=== PATIENT | male | born 1960 | race African-American/Black ===

== ENCOUNTER 2016-08-21 08:41 | Emergency (ER) | payer OTHER ==
[~2016-08-21] VITALS: Ht 188 cm; Wt 125.2 kg
[~2016-08-21 08:41] MED LIST: CITA-36 PO; GLIP-115 PO; HYDR25TA4 PO; HYDR8TAB PO; LISI40TA PO; METO-159 PO; NIFE90TA30 PO; OXY20CRT PO
[2016-08-21 09:40] LABS: Basophils # (auto) 0 uL; Basophils % (auto) 0.3 % (0.0-2.0); Eosinophils # (auto) 0.1 uL; Eosinophils % (auto) 1.2 % (0.0-7.0); Hemoglobin 15.4 g/dL (13.5-17.5); Lymphocytes # (auto) 1.9 uL; Lymphocytes % (auto) 19.2 % (10.0-50.0); Mean Corpuscular Hemoglobin 28.3 pg (28.0-32.0); Mean Corpuscular Hgb Conc. 32.1 g/dL (32.0-36.0); Mean Corpuscular Volume 88.2 fL (80.0-100.0); Mean Platelet Volume 8.2 fL (7.4-10.4); Monocytes # (auto) 0.7 uL; Monocytes % (auto) 6.8 % (0.0-12.0); Neutrophils % (auto) 72.5 % (37.0-80.0); Platelet Count (auto) 360 10^3/uL (140-450); Red Cell Distribution Width 13.3 % (11.6-16.0); White Blood Cell 9.7 10^3/uL (4.4-10.8)
[2016-08-21 10:00] LABS: Urine Bilirubin Negative (Negative); Urine Blood Negative /uL (Negative); Urine Color Colorless (Yellow); Urine Ketone Negative (Negative); Urine Nitrite Negative (Negative); Urine RBC <1 /hpf (0 - 3); Urine Urobilinogen Normal (Negative)
[2016-08-21 10:02] LABS: Albumin 4.1 g/dL (3.4-5.0); BUN/Creatinine Ratio 13.2; Bilirubin, Total 0.6 mg/dL (0.2-1.0); Calcium 9.9 mg/dL (8.5-10.1); Potassium 4.1 mmol/L (3.5-5.1); Total Protein 8.9 g/dL (6.4-8.2)
[2016-08-21 10:09] LABS: Urine Glucose 4+ mg/dL (Normal)
[2016-08-21] MEDS ORDERED: SODIUM CHLORIDE 0.9% 1,000 ML IVB ONE (15:05)
[2016-08-21 15:40] LABS: INR 1.1 (0.9-1.15); Partial Thromboplastin Time 26.1 sec (22.64-33.71); Prothrombin Time 11.3 sec (9.37-12.3)
[2016-08-21 15:44] LABS: Magnesium 2.4 mg/dL (1.6-2.6)
[2016-08-21] MEDS ORDERED: InsuLIN REG 1unit/0.01ml Soln (100units/ml) IV ONE (15:45)
[2016-08-21 16:22] LABS: Urine Bilirubin Negative (Negative); Urine Blood Negative /uL (Negative); Urine Color Yellow (Yellow); Urine Ketone Negative (Negative); Urine Nitrite Negative (Negative); Urine RBC <1 /hpf (0 - 3); Urine Urobilinogen Normal (Negative)
[2016-08-21 16:23] LABS: Urine Glucose 4+ mg/dL (Normal)
[2016-08-21 17:01] VITALS: BP 137/94
== END 2016-08-21 18:23 | disposition left against medical advice (07) ==
LOC: ER 08:50
DX: E11.65 Type 2 diabetes mellitus with hyperglycemia (principal); R79.89 Other specified abnormal findings of blood chemistry; Z79.4 Long term (current) use of insulin; M54.9 Dorsalgia, unspecified; G89.29 Other chronic pain; I10 Essential (primary) hypertension; Z79.899 Other long term (current) drug therapy
CPT/HCPCS: 36415; 71010; 80053; 81001; 82150; 82962; 83690; 83735; 85025; 85610; 85730; 93005; 94761; 96361; 96374; 99285; J1815; J7030

== ENCOUNTER 2017-08-24 14:24 | Emergency (ER) | payer OTHER ==
[~2017-08-24] VITALS: Ht 195.6 cm; Wt 204.1 kg
[~2017-08-24 14:24] MED LIST changes: -HYDR8TAB PO; +HYDR8TAB46 PO
[2017-08-24] MEDS ORDERED: DIAZEPAM 5 MG/ML 2ML SYRG IM ONE (16:00)
[2017-08-24] MEDS ORDERED: HALOPERIDOL LACTATE 5 MG/ML INJ VIAL IM ONE (16:00)
[2017-08-24] MEDS ORDERED: diphenhdrAMINE HCL 50 MG/1 ML VL IM ONE (16:00)
[2017-08-24 16:32] VITALS: BP 90/52
[2017-08-24] MEDS ORDERED: HYDROmorphone HCL 2 MG/ML VL IV ONE (16:45)
[2017-08-24 17:40] LABS: Basophils # (auto) 0 uL; Basophils % (auto) 0.9 % (0.0-2.0); Eosinophils # (auto) 0.1 uL; Eosinophils % (auto) 2.2 % (0.0-7.0); Hematocrit 41.2 % (41.0-53.0); Hemoglobin 13.4 g/dL (13.5-17.5); Lymphocytes # (auto) 1.5 uL; Lymphocytes % (auto) 26.8 % (10.0-50.0); Mean Corpuscular Hemoglobin 27.2 pg (28.0-32.0); Mean Corpuscular Hgb Conc. 32.6 g/dL (32.0-36.0); Mean Corpuscular Volume 83.5 fL (80.0-100.0); Monocytes # (auto) 0.6 uL; Monocytes % (auto) 11.6 % (0.0-12.0); Neutrophils # (auto) 3.2 uL; Neutrophils % (auto) 58.5 % (37.0-80.0); Nucleated Red Blood Cells % 0.1 %; Platelet Count (auto) 294 10^3/uL (140-450); Red Blood Cells 4.93 10^6/uL (4.5-5.90); Red Cell Distribution Width 16.9 % (11.8-14.3); White Blood Cell 5.5 10^3/uL (4.4-10.8)
[2017-08-24 17:48] LABS: Albumin 3.1 g/dL (3.4-5.0); BUN/Creatinine Ratio 13.3; Calcium 8.3 mg/dL (8.5-10.1); Potassium 3.3 mmol/L (3.5-5.1); Salicylate < 1.7 mg/dL (2.8-20.0)
[2017-08-24 17:49] LABS: Acetaminophen < 2.0 ug/mL (10-30)
[2017-08-24 18:06] LABS: Bilirubin, Total 0.5 mg/dL (0.2-1.0); Total Protein 7.7 g/dL (6.4-8.2)
== END 2017-08-24 18:20 | disposition left against medical advice (07) ==
LOC: EDBD 14:24 → ER 14:24
DX: F43.10 Post-traumatic stress disorder, unspecified (principal); G89.29 Other chronic pain; M48.00 Spinal stenosis, site unspecified; M54.9 Dorsalgia, unspecified; I10 Essential (primary) hypertension; E11.9 Type 2 diabetes mellitus without complications
CPT/HCPCS: 36415; 80053; 80320; 80329; 85025; 96372; 96374; 99284; J1170; J1200; J1630

== ENCOUNTER 2019-02-04 16:19 | Inpatient (IN) | payer MEDICARE, OTHER ==
[~2019-02-04] VITALS: Ht 188 cm; Wt 130.4 kg
[2019-02-04] MEDS ORDERED: SODIUM CHLORIDE 0.9% 500 ML IV ONE (16:51)
[2019-02-04] MEDS ORDERED: ACETAMINOPHEN 500 MG TAB PO ONE (17:00)
[2019-02-04] MEDS ORDERED: NALOXONE HCL 1MG/ML 2ML SYRINGE IV ONE (17:00)
[2019-02-04 17:09] LABS: Eosinophils # (auto) 0 uL; Eosinophils % (auto) 0.2 % (0.0-7.0); Hemoglobin 9.9 g/dL (13.5-17.5); Monocytes # (auto) 0.9 uL; White Blood Cell 12.2 10^3/uL (4.4-10.8)
[2019-02-04 17:10] LABS: Basophils # (auto) 0.1 uL; Basophils % (auto) 0.5 % (0.0-2.0); Hematocrit 34.5 % (41.0-53.0); Lymphocytes # (auto) 1.9 uL; Lymphocytes % (auto) 15.6 % (10.0-50.0); Mean Corpuscular Hemoglobin 22.2 pg (28.0-32.0); Mean Corpuscular Hgb Conc. 28.6 g/dL (32.0-36.0); Mean Corpuscular Volume 77.6 fL (80.0-100.0); Neutrophils # (auto) 9.4 uL; Neutrophils % (auto) 76.7 % (37.0-80.0); Nucleated Red Blood Cells % 0.2 %; Platelet Count (auto) 318 10^3/uL (140-450); Red Blood Cells 4.44 10^6/uL (4.5-5.90); Red Cell Distribution Width 19.2 % (11.8-14.3)
[2019-02-04 17:25] LABS: Albumin 3.2 g/dL (3.4-5.0); Calcium 8.1 mg/dL (8.5-10.1); Magnesium 2.5 mg/dL (1.6-2.6); Potassium 4.9 mmol/L (3.5-5.1)
[2019-02-04 17:30] LABS: Bilirubin, Total 0.6 mg/dL (0.2-1.0); Total Protein 7.8 g/dL (6.4-8.2)
[2019-02-04] MEDS ORDERED: ETOMIDATE (2MG/ML) 20ML VIAL IV ONE ×2 (17:53→18:30)
[2019-02-04] MEDS ORDERED: SUCCINYLCHOLINE CHLORIDE 20 MG/ML 10ML VIAL IV ONE ×2 (17:54→18:30)
[2019-02-04 17:56] LABS: Acetaminophen 5.3 ug/mL (10-30); Salicylate < 1.7 mg/dL (2.8-20.0)
[2019-02-04] MEDS ORDERED: MIDAZOLAM DRIP 50 mg/50mL 50 ML IV ONE (17:56)
[2019-02-04] MEDS ORDERED: NOREPINEPHRINE 8 MG/250ML KIT 250 ML IV ONE (18:05)
[2019-02-04] MEDS: InsuLIN R (HUMAN) 100 UNITS in SODIUM CHL 0.9% 99 ML IV SCH (18:35)
[2019-02-04 18:38] LABS: INR 1.04 (0.9-1.15); Partial Thromboplastin Time 25.2 sec (23.64-32.05)
[2019-02-04] MEDS: MIDAZOLAM DRIP 50 mg/50mL 50 ML IV SCH (18:42)
[2019-02-04] MEDS: NOREPINEPHRINE 8 MG/250ML KIT 250 ML IV SCH (18:43)
[2019-02-04] MEDS ORDERED: InsuLIN REG 1unit/0.01ml Soln (100units/ml) IV ONE (18:45)
[2019-02-04] MEDS ORDERED: cefTRIAXone 1GM/50ML D5W 50 ML IV ONE (18:45)
[2019-02-04] MEDS ORDERED: DEXTROSE (50%) 50ML SYRG IV PRN ×2 (18:45→20:00)
[2019-02-04] MEDS ORDERED: DOPamine 1600MCG/ML D5W 250 ML IV ONE (19:12)
[2019-02-04] MEDS: DOPamine 1600MCG/ML D5W 250 ML IV SCH (19:23)
[2019-02-04] MEDS ORDERED: SODIUM BICARBONATE 8.4 % INJ 50ML VIAL IV ONE (19:30)
[2019-02-04 20:00] VITALS: BP 109/74
[2019-02-04] MEDS ORDERED: NITROGLYCERIN 0.4 MG SL TAB SL PRN (20:00)
[2019-02-04] MEDS ORDERED: MORPHINE SULF INJ 2 MG/ML SYRINGE 1ML IV PRN (20:00)
[2019-02-04] MEDS ORDERED: SOD CHL 0.45% 1,000 ML IV ONE (20:00)
[2019-02-04] MEDS ORDERED: InsuLIN REG 1unit/0.01ml Soln (100units/ml) SC SCH (20:00)
[2019-02-04] MEDS: ACCU-CHEK COMFORT CURVE STRIP VI SCH ×3 (20:00→21:39)
[2019-02-04] MEDS ORDERED: AZITHROMYCIN 500MG/ 250ML 250 ML IV ONE (21:00)
[2019-02-04 22:00] VITALS: BP 78/58
[2019-02-04] MEDS: ENOXAPARIN SOD 40 MG/0.4 ML SYRINGE SC SCH (22:24)
[2019-02-05] VITALS (96 sets, daily range): BP systolic 87–151; BP diastolic 32–95
--- NOTE | 2019-02-05 00:15 | NUR ---
ADMITTED FROM HOME. DIAGNOSIS: RENAL INSUFFICIENCY, CHF, DKA, CERVICAL PAIN. HAS A CAST ON HIS RIGHT ARM AND RIGHT LEG. HE FELL 4 DAYS AGO AT HOME. HYPOTENSIVE: ON LEVOPHED MAX AND DOPAMINE 10 MCG/KG/MIN. BACK PAIN THAT HE HAS AT HOME, HE TAKES NORCO. PUPILS PINPOINT AND FIXED. ORAL CARE . ORALLY INTUBATED. ORAL NGT TO LIS. SMALL AMOUNT OF DARK BROWN/CLEAR IN NGT. NOTHING IN CANNISTER. NSR WITHOUT ECTOPY. VELEZ IN PLACE. 110CC OF DARK LEODAN IN BAG. 1/2NS STARTED. PENDING BLOOD CULTURE RESULT. ECHO ORDER IS ACTIVE. RECEIVED ZITHROMAX IN ER X 1. 3 PERIPHERAL IVS. ALL SHOW NO REDNESS OR SWELLING. BLOOD SUGAR IN RIGHT ARM IS 457, LEFT ARM IS 523. CALL IN TO HOSPITALIST.
--- NOTE | 2019-02-05 01:00 | NUR ---
HISTORY OBTAINED FROM . PASSWORD SET UP. THEN SHE WENT HOME. NO VENTILATOR CHANGES.
[2019-02-05] MEDS: InsuLIN REG 1unit/0.01ml Soln (100units/ml) SC SCH ×6 (01:59→19:59)
[2019-02-05] MEDS ORDERED: INSULIN LANTUS (GLARGINE) 1 /0.01ml (100units/ml) SC ONE (02:00)
--- NOTE | 2019-02-05 02:00 | NUR ---
REPOSITIONED. ORAL CARE. FEVER 99.8. ICE BAG TO BACK OF NECK.
--- NOTE | 2019-02-05 03:00 | NUR ---
AM LABS DONE.
[2019-02-05] MEDS: NOREPINEPHRINE 8 MG/250ML KIT 250 ML IV SCH (04:00)
--- NOTE | 2019-02-05 04:00 | NUR ---
PUPILS FIXED AND PINPOINT. ORAL CARE DONE. SUCTIONED ETT FOR A SMALL AMOUNT OF CLEAR SECRETIONS. ABDOMEN ROUND AND SOFT. VELEZ IN PLACED WITH DARK YELLOW LIQUID TO DOWN DRAIN BAG. NSR WITH A BORDERLINE FIRST DEGREE AV BLOCK.
[2019-02-05] MEDS: ACCU-CHEK COMFORT CURVE STRIP VI SCH ×12 (04:10→23:53)
[2019-02-05 04:12] LABS: Basophils # (auto) 0.1 uL; Eosinophils # (auto) 0 uL; Mean Corpuscular Volume 74.4 fL (80.0-100.0); Nucleated Red Blood Cells % 0.1 %
[2019-02-05 04:13] LABS: Basophils % (auto) 0.7 % (0.0-2.0); Hematocrit 33.2 % (41.0-53.0); Hemoglobin 9.8 g/dL (13.5-17.5); Lymphocytes # (auto) 1.6 uL; Lymphocytes % (auto) 11.5 % (10.0-50.0); Mean Corpuscular Hgb Conc. 29.6 g/dL (32.0-36.0); Monocytes # (auto) 1.7 uL; Monocytes % (auto) 11.7 % (0.0-12.0); Neutrophils # (auto) 10.8 uL; Neutrophils % (auto) 76.1 % (37.0-80.0); Platelet Count (auto) 336 10^3/uL (140-450); Red Blood Cells 4.47 10^6/uL (4.5-5.90); Red Cell Distribution Width 19.3 % (11.8-14.3); White Blood Cell 14.2 10^3/uL (4.4-10.8)
[2019-02-05 04:28] LABS: Albumin 3.2 g/dL (3.4-5.0); Calcium 7.8 mg/dL (8.5-10.1)
[2019-02-05 04:37] LABS: BUN/Creatinine Ratio 13.5; Bilirubin, Total 0.5 mg/dL (0.2-1.0); Total Protein 7.6 g/dL (6.4-8.2)
[2019-02-05] MEDS: MIDAZOLAM DRIP 50 mg/50mL 50 ML IV SCH ×5 (05:00→23:32)
[2019-02-05] MEDS: DOPamine 1600MCG/ML D5W 250 ML IV SCH ×2 (05:11→16:23)
--- NOTE | 2019-02-05 06:00 | NUR ---
REPOSITIONED TO THE LEFT SIDE. ORAL CARE. LUNGS CLEAR. ABDOMEN ROUND AND SOFT. VELEZ DRAINING MORE URINE SINCE THE IV GOT STARTED.NGT TO LIS IS DRAINING A BROWN/YELLOW LIQUID.
--- NOTE | 2019-02-05 07:00 | NUR ---
REPORT RECEIVED FROM OFFICE ASSISTANT RECEPTIONIST NURSE. PATIENT RESTING IN BED AT THIS TIME RESPIRATIONS EVEN AND UNLABORED, INTUBATED AND SEDATED. NO SIGNS OF ACUTE DISTRESS NOTED. BED IN LOW POSITION. WILL CONTINUE TO MONITOR.
--- NOTE | 2019-02-05 09:00 | NUR ---
UPDATED VIA TELEPHONE ON PATIENT CONDITION. ALL QUESTIONS AND CONCERNS ADDRESSED.
--- NOTE | 2019-02-05 09:19 | NUR ---
PATIENT MAX ON VERSED DRIP AND CONTINUES TO BE AGITATED. PAGED VEHICLE WASHER MD MCLAUGHLIN AWAITING CALL BACK.
--- NOTE | 2019-02-05 09:30 | NUR ---
SPOKE TO DR MCLAUGHLIN ABOUT STATUS AND AGITATION ON VERSED DRIP. PER MD MAY START FENTANYL DRIP PER PROTOCOL.
[2019-02-05] MEDS: ENOXAPARIN SOD 40 MG/0.4 ML SYRINGE SC SCH (09:56)
[2019-02-05] MEDS: fentaNYL Drip 2500mCg/250mlNS 250 ML IV SCH (09:57)
--- NOTE | 2019-02-05 10:39 | NUR ---
DR CATALAN AT BEDSIDE TO ASSESS PATIENT AND DISCUSS PLAN OF CARE. PER MD INCREASED LOVENOX TO 1MG/KG Q12HR. ALSO STATED PATIENT WILL HAVE HEART CATH ONCE STABILIZED.
--- NOTE | 2019-02-05 11:13 | NUR ---
Decreased Fio2 to 55%. PT having 2D echo performed at this time. Did not SX PT due to testing. Reported to VERONIQUE Vallejo of Fio2 changes. No SOB/resp. distress noted.
[2019-02-05] MEDS ORDERED: OPTISON 3ml Vial for INJ IV ONE (11:17)
--- NOTE | 2019-02-05 11:21 | NUR ---
IMAGE ENHANCED ECHO PERFORMED. OPTISON GIVEN 4ML. LOT #[id number] EXPIRATION JANUARY 25, 2020
--- NOTE | 2019-02-05 12:33 | NUR ---
Decreased Fio2 to 45%. Reported to VERONIQUE Vallejo of Fio2 changes.No SOB/resp.distress noted at this time.SX ETT with a return of small thin white secretions. Sx oral cavity with large amount of thick clear secretions.
--- NOTE | 2019-02-05 12:45 | NUR ---
IV REMOVED FROM RIGHT IJ UPON TURNING PATIENT. APPLIED PRESSURE TO SITE WITH STERILE GAUZE AND PLACED TEGADERM.
[2019-02-05 14:56] LABS: Alcohol, Urine < 3.0 mg/dL (0-5); Amphetamine Screen, Urine NEGATIVE (NEGATIVE); Barbiturate Scree,Urine NEGATIVE (NEGATIVE); Benzodiazephine Screen, Urine POSITIVE (NEGATIVE); Cannabinoid Screen, Urine NEGATIVE (NEGATIVE); Cocaine Screen, Urine NEGATIVE (NEGATIVE); Opiate Scree,Urine POSITIVE (NEGATIVE); Phencyclidine Screen, Urine NEGATIVE (NEGATIVE)
--- NOTE | 2019-02-05 15:20 | NUR ---
Faxed medical record request over to [facility].
--- NOTE | 2019-02-05 15:33 | NUR ---
Decreased Fi02 to 40% VERONIQUE Vallejo aware of change .B/S clear.SX ETT with thick sampson secretions , SX orally with thick white secretions . No SOB/resp.distress noted at this time.
[2019-02-05] MEDS ORDERED: VANCOMYCIN PER PHARMACY 0 MG IV SCH (16:15)
[2019-02-05] MEDS: SODIUM CHLORIDE 0.9% 1,000 ML IV SCH (16:44)
[2019-02-05 16:49] LABS: Urine Bacteria FEW /hpf (None Seen); Urine Blood 2+ /uL (Negative); Urine Specific Gravity 1.014 (1.001-1.035); Urine WBC 7 /hpf (0 - 3)
[2019-02-05] MEDS: VANCOMYCIN 1GM/250ML 250 ML IV SCH ×2 (16:51→18:11)
--- NOTE | 2019-02-05 19:50 | NUR ---
FIO2 35%. O2 SATURATION 99%
--- NOTE | 2019-02-05 20:00 | NUR ---
ADMITTED TO 106 ON 02/05/19 AT 0015. INTUBATED. NSR WITHOUT ECTOPY. PATIENT IS NOW SINUS TACHYCARDIA 101. NO ECTOPY. DR BACA HERE NOW. PATIENT WAKENS EASILY OPENING EYES AND MOVING HIS LEFT ARM. PUPILS FIXED AT 2. ORAL CAVITY CLEAN. ORAL ETT. ORAL NGT. LUNGS CLEAR. DID NOT SUCTION ANYTHING FROM HIS ETT. ON 35% CURRENTLY. AC 16, BREATHING ALONG WITH VENTILATOR. ABDOMEN ROUND AND SOFT. NO BM. VELEZ IN PLACE DRAINING YELLOW LIQUID WITH A LOT OF SEDIMENT. HAS 2 PERIPHERAL IVS, ONE 20G IN LAC AND ONE 20G IN LEFT WRIST. FENTANYL AND VERSED ARE TOGETHER IN ONE AND THE MAINTENANCE FLUID IS IN THE OTHER. MAXIPIME IS NEW. SEPERATE LINE, RATE IS 12. 5 CC/HR. NOTED ECHO RESULTS. HAD A VANCOMYCIN 2 GM LOAD TODAY. PLAN: DR CATALAN WANTS TO DO A HEART CATH AFTER EXTUBATION. ALLERGY BAND APPLIED FOR ALLERGY TO METHADONE. ACCUCHECK Q 4 HOURS. 180 BLOOD SUGAR REQUIRING 4 UNITS OF REGULAR INSULIN. NO SKIN ISSUES. REPOSITIONED TO HIS RIGHT SIDE. USING THE WEDGE TO KEEP HIM OVER. HAS A RIGHT ARM CAST AND RIGHT LOWER LEG/FOOT CAST.
[2019-02-05] MEDS: CEFEPIME HYDROCHLORIDE 2 GM in SODIUM CHL 0.9% 50 ML IV SCH (20:02)
--- NOTE | 2019-02-05 21:21 | NUR ---
FIO2 DECREASED TO 30%. O2 SATURATION 98%
--- NOTE | 2019-02-05 22:00 | NUR ---
HAS BEEN ABLE TO STAY OFF OF LEVOPHED AND DOPAMINE. WAKES UP READILY. PUPILS MOVING SLUGGISHLY. OPENS EYES OCCASIONALLY. RHYTMICALLY MOVES LEFT ARM AND THEN RELAXES. RIGHT SIDE WITH THE CASTS DOES NOT MOVE. OVERBREATHES THE VENTILATOR RATE TO 18. NO BM. VELEZ OUTPUT ADEQUATE. NGT OUTPUT SLOWING. THE COLOR OF THE NGT OUTPUT IS BROWN. SINUS TACHYCARDIA 101 CONSISTENTLY. REPOSITIONED TO BACK. LEFT LOWER LEG ON PILLOW, HEELS OFF BED.IVS SHOW NO REDNESS. THE ARMS HAS BEEN SWOLLEN.
[2019-02-05] MEDS: ENOXAPARIN SOD 150 MG/1 ML SYRINGE SC SCH (22:06)
[2019-02-05] MEDS: FAMOTIDINE (10MG/ML) 2ML VL IV SCH (22:06)
[2019-02-06] VITALS (115 sets, daily range): BP systolic 122–196; BP diastolic 56–116
--- NOTE | 2019-02-06 | NUR ---
NO CHANGE IN STATUS. PUPILS 2 AND FIXED. SMALL AMOUNT OF ORAL SECRETIONS. NOTHING SUCTIONED FROM ETT. NGT SUCTIONING DARK GREEN LIQUID. SO FAR 250CC. NO BOWEL SOUNDS. NO BM. VELEZ: SEDIMENT IN YELLOW LIQUID. IV SITES SHOW NO REDNESS OR SWELLING. NSR 99 WITHOUT ECTOPY. TEMP 99.4. ICE BAG TO BACK OF THROAT.
[2019-02-06] MEDS: InsuLIN REG 1unit/0.01ml Soln (100units/ml) SC SCH ×7 (00:10→23:48)
[2019-02-06] MEDS: ACCU-CHEK COMFORT CURVE STRIP VI SCH ×13 (00:10→23:49)
--- NOTE | 2019-02-06 01:13 | NUR ---
REPOSITIONED TO LEFT. EYES OPEN. MOVED LEFT ARM. THEN WENT BACK TO SLEEP.
--- NOTE | 2019-02-06 02:46 | NUR ---
BACKING UP ON THE VERSED BY 1 MG, HE WOKE UP AND WAS COUGHING STRONGLY. SMALL AMOUNT SUCTIONED FROM ETT. COPIOUS OF AMOUNT OF GREEN SECRETIONS CAME FROM HIS MOUTH.
[2019-02-06] MEDS: MIDAZOLAM DRIP 50 mg/50mL 50 ML IV SCH ×3 (03:17→10:53)
--- NOTE | 2019-02-06 04:00 | NUR ---
CHG BATH GIVEN. AM LABS DRAWN. SINUS TACHYCARDIA WITH NO ECTOPY.
[2019-02-06 04:12] LABS: Basophils # (auto) 0.1 uL; Basophils % (auto) 1.5 % (0.0-2.0); Eosinophils # (auto) 0.1 uL; Eosinophils % (auto) 0.6 % (0.0-7.0); Hematocrit 31.3 % (41.0-53.0); Hemoglobin 9.7 g/dL (13.5-17.5); Lymphocytes # (auto) 1.4 uL; Lymphocytes % (auto) 16.7 % (10.0-50.0); Mean Corpuscular Hemoglobin 22.2 pg (28.0-32.0); Mean Corpuscular Volume 71.6 fL (80.0-100.0); Monocytes # (auto) 0.9 uL; Monocytes % (auto) 10.9 % (0.0-12.0); Neutrophils # (auto) 5.9 uL; Neutrophils % (auto) 70.3 % (37.0-80.0); Nucleated Red Blood Cells % 0.1 %; Platelet Count (auto) 222 10^3/uL (140-450); Red Blood Cells 4.36 10^6/uL (4.5-5.90); Red Cell Distribution Width 18.9 % (11.8-14.3); White Blood Cell 8.3 10^3/uL (4.4-10.8)
[2019-02-06] MEDS: CEFEPIME HYDROCHLORIDE 2 GM in SODIUM CHL 0.9% 50 ML IV SCH ×3 (04:16→20:42)
[2019-02-06 04:20] LABS: Albumin 2.8 g/dL (3.4-5.0); BUN/Creatinine Ratio 19.8; Bilirubin, Total 0.6 mg/dL (0.2-1.0); Calcium 8.2 mg/dL (8.5-10.1); Total Protein 6.9 g/dL (6.4-8.2)
[2019-02-06] MEDS: SODIUM CHLORIDE 0.9% 1,000 ML IV SCH ×2 (05:35→20:37)
[2019-02-06] MEDS: VANCOMYCIN 1,250 MG in D5W 5% 250 ML IV SCH ×2 (06:16→18:15)
[2019-02-06] MEDS: DOPamine 1600MCG/ML D5W 250 ML IV SCH ×2 (07:32→23:44)
[2019-02-06] MEDS: InsuLIN R (HUMAN) 100 UNITS in SODIUM CHL 0.9% 99 ML IV SCH (07:32)
--- NOTE | 2019-02-06 08:20 | NUR ---
NEURO/SEDATION Patient appears to be very awake at this time. Patient moving right arm, attempting to reach for ETT. Patient coughing and biting on tube. Patient instructed to relax, patient restless. Sedation increased.
--- NOTE | 2019-02-06 08:30 | NUR ---
FAMILY Patient at bedside. She has been updated on plan of care. All questions and concerns addressed.
--- NOTE | 2019-02-06 08:40 | NUR ---
NEPHROLOGY ROUNDS at bedside assessing patient. New orders received.
--- NOTE | 2019-02-06 09:29 | NUR ---
Respiratory note: VENT CHARTING AT 0605 AND 0800 BREATHS ARE ASSISTED NOT SPONTANEOUS CHARTED.
--- NOTE | 2019-02-06 10:00 | NUR ---
LOVENOX Lovenox temporarily held due to patient going to have PICC line placed today. Will administer dose after PICC line placement.
--- NOTE | 2019-02-06 10:30 | NUR ---
MD ROUNDS at bedside assessing patient. He is aware patient awakens easily and was moving left arm to attempt to pull at ETT, sedation was then increased. He would still like to wean down sedation if possible. PICC line order received.
[2019-02-06] MEDS ORDERED: LORazepam 2MG/ML-1ML VIAL IV PRN (10:45)
[2019-02-06] MEDS: FAMOTIDINE (10MG/ML) 2ML VL IV SCH ×2 (10:52→22:22)
[2019-02-06] MEDS: fentaNYL Drip 2500mCg/250mlNS 250 ML IV SCH ×3 (10:52→22:37)
--- NOTE | 2019-02-06 10:52 | NUR ---
Respiratory note: VENT CHANGE ORDER PER DR MCLAUGHLIN TO DECREASE PEEP FROM 8 TO 5. VERONIQUE EVANS NOTIFIED OF CHANGE. PATIENT TOLERATING VENT CHANGE WELL. WILL CONTINUE TO MONITOR PATIENT.
[2019-02-06 11:36] LABS: Urine Bacteria NONE SEEN /hpf (None Seen); Urine Blood 2+ /uL (Negative); Urine Specific Gravity 1.032 (1.001-1.035); Urine WBC 3 /hpf (0 - 3)
[2019-02-06 11:56] LABS: INR 1.02 (0.9-1.15)
--- NOTE | 2019-02-06 12:00 | NUR ---
PICC LINE NURSE AT BEDSIDE.
[2019-02-06 12:47] LABS: Protein, Urine 130.8 mg/dL (0.0-11.9)
--- NOTE | 2019-02-06 12:50 | NUR ---
PICC line placement Patient's family educated on need for PICC line placement by primary RN. All risks and benefits explained and all questions and concerns addressed prior to procedure. Noted past medical history and allergies with no contraindications. INR and Plt counts within acceptable range. 5 fr PICC line inserted via left basilic vein using [employer] US and Tip Location System. Sterile technique with maximum barrier precautions utilized. Blood return obtained from each of the three lumens and each flushed easily with NS using proper technique. PICC secured with Stat-lock; biodisc and occlusive dressing applied. Stat portable chest x-ray obtained for PICC tip placement. *Baseline Arm Circumference 38 cm. *Internal Length 54 cm. *External Length 0 cm. *PICC lot #[id number]. Note: Difficulty threading in PICC initially. Successful placement. Tolerated well. EBL 10mls.
--- NOTE | 2019-02-06 13:15 | NUR ---
CARES Partial linen change performed. Skin assessment complete. Optifoam placed on sacrum for prevention. Patient awakens with stimulation, strong coughing episode that lead patient to whitaker the vent for 5 minutes, desaturation to 81%. Patient not following commands at this time. All other vital stable. Oxygen sat returned to 98%, cuff pressure checked by RT.
[2019-02-06] MEDS ORDERED: LIDOCAINE 1% (LOCAL ANESTH.) PF 5ml SDV ID ONE (13:30)
--- NOTE | 2019-02-06 13:33 | NUR ---
PULMONOLOGY ROUNDS at bedside assessing patient. MD stated to keep patient on fentanyl gtt, max dose increase. MD placed patient on PO pain medications to treat chronic pain. MD wants us to titrate off versed gtt as tolerated and start Precedex to see if patient is able to be weaned off ventilator. Orders received.
--- NOTE | 2019-02-06 13:38 | NUR ---
Okay to Use PICC Line X-ray completed. Primary RN notified.
[2019-02-06] MEDS: ENOXAPARIN SOD 150 MG/1 ML SYRINGE SC SCH ×2 (13:48→23:50)
--- NOTE | 2019-02-06 14:17 | NUR ---
SEDATION Awaiting Precedex gtt, titrating down Versed gtt. Patient tolerating well at this time. No signs of distress noted.
[2019-02-06] MEDS ORDERED: GABA300C10 PO (14:54)
[2019-02-06] MEDS ORDERED: BENA40TA7 PO (14:54)
[2019-02-06] MEDS ORDERED: ATOR40TA52 PO (14:54)
[2019-02-06] MEDS ORDERED: MELA3TAB27 PO (14:54)
[2019-02-06] MEDS ORDERED: FER325T PO (14:54)
[2019-02-06] MEDS ORDERED: CARV25TA55 PO (14:54)
[2019-02-06] MEDS ORDERED: HYDR10TA26 PO (14:54)
[2019-02-06] MEDS ORDERED: PANT40TA2 PO (14:54)
[2019-02-06] MEDS ORDERED: DILT60TA27 PO (14:54)
[2019-02-06] MEDS ORDERED: BACL10TA PO (14:54)
[2019-02-06] MEDS ORDERED: METH750T3 PO (14:54)
[2019-02-06] MEDS ORDERED: FLUT0.05 NAS (14:54)
[2019-02-06] MEDS ORDERED: ASPI81CH43 PO (14:54)
[2019-02-06] MEDS ORDERED: DULO60CA PO (14:54)
--- NOTE | 2019-02-06 15:00 | NUR ---
VISITOR Patient at bedside. Went over patient home medications list with . MD called for blood pressure medications. Orders received.
--- NOTE | 2019-02-06 16:00 | NUR ---
SEDATION Versed titrated off. Patient calmly opening eyes when stimulated. Will begin to titrate down fentanyl as tolerated.
--- NOTE | 2019-02-06 16:45 | NUR ---
NEUROLOGY ROUNDS at bedside assessing patient. He is aware sedation has been titrated off but patient remains on fentanyl gtt. Patient opens eyes to stimulus. Slight right arm tremor noted but not as strong as this morning when patient became restless. He is aware we are attempting cpap tomorrow morning. MD speaking with patients .
[2019-02-06] MEDS: hydrALAZINE HCL 20 MG/ML VL IV PRN (17:03)
--- NOTE | 2019-02-06 17:09 | NUR ---
ROUNDING NOTE Patient off versed. Patient awake, respiratory rate increased from 16 to 26. Patient attempting to bite ETT. Patient instructed not to bite tube, breath slowly with vent. Patient not tracking at this time. Heart rate increased to 105 with blood pressure 180's systolic. PRN hydralazine given. Will continue to monitor. Still awaiting Precedex gtt from pharmacy.
[2019-02-06] MEDS: DexMEDEtomidine 400 MCG in D5W 5% 96 ML IV SCH (17:30)
--- NOTE | 2019-02-06 17:30 | NUR ---
PRECEDEX Precedex gtt started at .2 mcg. Patient heart rate increasing to 112 with SBP 190's, patient respiratory rate 25. Attempted to calm patient and reorient. Patient would appear to calm only for a short period and become restless again. Will continue to monitor and titrate.
[2019-02-06] MEDS: OXYCODONE HCL 5MG TAB PO SCH ×2 (18:00→23:48)
[2019-02-06] MEDS: NOREPINEPHRINE 8 MG/250ML KIT 250 ML IV SCH (18:15)
--- NOTE | 2019-02-06 19:30 | NUR ---
REPORT Report given to Sandra PIPER, care endorsed.
--- NOTE | 2019-02-06 19:50 | NUR ---
SEDATION DECREASED FENTANYL DECREASED TO 180MCCG/HR FOR CPAP DANITA WILL CONTINUE TO MONITOR
[2019-02-06] MEDS: CARVEDILOL 12.5 MG TAB PO SCH (22:26)
[2019-02-06] MEDS: SODIUM CHLOR 0.9% PF (SALINE LOCK) 10ML VIAL/SYR IV SCH (22:29)
[2019-02-06] MEDS: hydrALAZINE HCL 10 MG TAB PO SCH (23:25)
[2019-02-07] VITALS (108 sets, daily range): BP systolic 125–169; BP diastolic 60–108
--- NOTE | 2019-02-07 | NUR ---
SEDATION PATIENT REMAINED NOT RESTLESS, READING THE VENT MOST OF THE TIME, VS STABLE - SEDATION TITRATED FOR SEDATION TITRATION-REFER SPREADSHEET
[2019-02-07] MEDS: DexMEDEtomidine 400 MCG in D5W 5% 96 ML IV SCH ×2 (01:49→21:17)
--- NOTE | 2019-02-07 02:20 | NUR ---
NEURO STATUS PATIENT OPEN EYES TO STIMULI BUT NOT FOLLOWING COMMANDS YET. IV FENTANYL DECREASED, IV PRECEDEX KEPT AT SAME RATE. WILL CONTINUE TO MONITOR
--- NOTE | 2019-02-07 03:20 | NUR ---
Patient bathe/linen change Patient given complete bath. Skin integrity assessed for any changes. Linens changed. Patient repositioned for comfort.
[2019-02-07] MEDS: CEFEPIME HYDROCHLORIDE 2 GM in SODIUM CHL 0.9% 50 ML IV SCH ×3 (03:52→20:05)
[2019-02-07] MEDS: ACCU-CHEK COMFORT CURVE STRIP VI SCH ×6 (04:08→23:49)
[2019-02-07] MEDS: InsuLIN REG 1unit/0.01ml Soln (100units/ml) SC SCH ×6 (04:10→23:56)
[2019-02-07] MEDS: OXYCODONE HCL 5MG TAB PO SCH ×4 (06:00→23:49)
[2019-02-07 06:23] LABS: Calcium 7.9 mg/dL (8.5-10.1); Potassium 4.3 mmol/L (3.5-5.1)
[2019-02-07 06:25] LABS: BUN/Creatinine Ratio 19.5
[2019-02-07 06:26] LABS: Eosinophils # (auto) 0 uL; Hemoglobin 9.3 g/dL (13.5-17.5); Lymphocytes # (auto) 1.1 uL; Monocytes # (auto) 0.7 uL; Nucleated Red Blood Cells % 0.1 %
[2019-02-07 06:28] LABS: Basophils # (auto) 0.1 uL; Basophils % (auto) 0.8 % (0.0-2.0); Eosinophils % (auto) 0.4 % (0.0-7.0); Hematocrit 29.9 % (41.0-53.0); Lymphocytes % (auto) 16.3 % (10.0-50.0); Mean Corpuscular Hemoglobin 22.6 pg (28.0-32.0); Mean Corpuscular Volume 72.9 fL (80.0-100.0); Monocytes % (auto) 10.4 % (0.0-12.0); Neutrophils # (auto) 5.1 uL; Neutrophils % (auto) 72.1 % (37.0-80.0); Platelet Count (auto) 248 10^3/uL (140-450)
[2019-02-07 06:38] LABS: Phosphorus 2.2 mg/dL (2.5-4.90); Uric Acid 2.9 mg/dL (3.5-7.2)
--- NOTE | 2019-02-07 06:40 | NUR ---
VANCOMYCIN LEVEL VANCOMYCIN LEVEL RESULT JUST CAME OUT = 11.3 WILL GIVE VANCOMYCIN DOSE NOW
[2019-02-07] MEDS: VANCOMYCIN 1,250 MG in D5W 5% 250 ML IV SCH (06:43)
[2019-02-07] MEDS: hydrALAZINE HCL 10 MG TAB PO SCH ×3 (06:52→22:33)
--- NOTE | 2019-02-07 07:00 | NUR ---
NEURO /RESP STATUS PATIENT OPEN EYES TO CALL BUT STILL NOT FOCUSING OR FOLLOWING COMMANDS HAD A EPISODE OF AIR LEAK AFTER THIS RN MOVED HIS HEAD, VENT WAS ALARMING SUCTIONED BUT STILL WITH AIR LEAK CALLED RT TO CHECK - WHEN RT WENT INSIDE, NO MORE AIR LEAK WILL CONTINUE TO OBSERVE
[2019-02-07] MEDS: MIDAZOLAM DRIP 50 mg/50mL 50 ML IV SCH ×4 (08:05→18:49)
--- NOTE | 2019-02-07 08:12 | NUR ---
PATIENT STATUS PER MD WOULD LIKE TO CPAP PATIENT. PATIENT ON PRECEDEX, VERSED AND FENTANYL OFF AT THIS TIME. PATIENT NOT FOLLOWING COMMANDS BUT OPENING EYES SPONTANEOUSLY. WITH STIMULATION PATIENT FIGHTING VENTILATOR TO THE POINT WHERE PATIENT IS GETTING LITTLE TO NO VOLUMES, INCREASES RESPIRATORY RATE, HEART RATE, AND BLOOD PRESSURE. PATIENT NOT TOLERATING, PLACED BACK ON VERSED AND FENTANYL
[2019-02-07] MEDS: SODIUM CHLORIDE 0.9% 1,000 ML IV SCH ×2 (08:15→11:50)
--- NOTE | 2019-02-07 09:17 | NUR ---
CPAP DR. BELL UPDATED ON PATIENT STATUS AND INABILITY TO PLACE ON CPAP AND SEDATION. NO ORDERS RECEIVED AT THIS TIME.
--- NOTE | 2019-02-07 09:22 | NUR ---
DR. BELL AT BEDSIDE
[2019-02-07] MEDS: FAMOTIDINE (10MG/ML) 2ML VL IV SCH ×2 (09:39→22:28)
[2019-02-07] MEDS: ENOXAPARIN SOD 150 MG/1 ML SYRINGE SC SCH ×2 (09:39→22:30)
[2019-02-07] MEDS: CARVEDILOL 12.5 MG TAB PO SCH ×2 (09:40→22:32)
[2019-02-07] MEDS: BENAZEPRIL HCL 10 MG TAB PO SCH (09:42)
[2019-02-07] MEDS: SODIUM CHLOR 0.9% PF (SALINE LOCK) 10ML VIAL/SYR IV SCH ×2 (09:42→22:29)
[2019-02-07] MEDS: DOPamine 1600MCG/ML D5W 250 ML IV SCH ×2 (10:23→20:53)
--- NOTE | 2019-02-07 12:18 | NUR ---
Nutrition Assessment Notes please see attached link for complete assessment Est. Needs ABW [id number] kcal (23-25 kcal/kgBW), 107-117 gms pro (1.0-1.1 gms/kgBW). Will continue to monitor pertinent labs and reassess nutrient need prn Addendum: 02/07/19 at [address] Amended: Links added.
--- NOTE | 2019-02-07 13:20 | NUR ---
AT BEDSIDE UPDATED ON PATIENT STATUS. ALL QUESTIONS AND CONCERNS ADDRESSED AT THIS TIME
[2019-02-07] MEDS: fentaNYL Drip 2500mCg/250mlNS 250 ML IV SCH (15:39)
--- NOTE | 2019-02-07 15:58 | NUR ---
STAIN DIPPER AT BEDSIDE
[2019-02-07] MEDS: VANCOMYCIN 1,500 MG in D5W 5% 250 ML IV SCH (16:04)
--- NOTE | 2019-02-07 16:11 | NUR ---
Respiratory note: VENTILATOR ALARMS ARE ALL FUNCTIONING, AND AUDIBLE. BS CLEAR WITH SOME SECRETIONS. SX FOR SCANT THICK CLEAR SECRETIONS. GAG REFLEX NOTED. FINANCIAL REPORTING CONSULTANT AND RN AT BED SIDE. PATIENT WAS UNABLE TO FOLLOW VERBAL COMMANDS THERE FOR CPAP TRIAL WAS UNABLE TO BE PERFORMED. RN MADE AWARE. WILL ENDORSE PATIENT STATUS TO CHERRY SORTER.
--- NOTE | 2019-02-07 16:40 | NUR ---
DR. REDDY AT BEDSIDE
[2019-02-07] MEDS: NOREPINEPHRINE 8 MG/250ML KIT 250 ML IV SCH (18:26)
--- NOTE | 2019-02-07 19:16 | NUR ---
REPORT GIVEN TO ARTURO PIPER TO ASSUME CARE
--- NOTE | 2019-02-07 19:30 | NUR ---
OPEN NOTES ASSUMED CARE OF PATIENT. PATIENT WAS RE-SEDATED WITH IV VERSED AND FENTANYL. OPEN EYES TO STIMULI BUT NOT FOLLOWING COMMANDS. DOES BREATH MORE AND FIGHTS VENTILATOR WHEN SEDATION WAS DECREASED OR WHEN PATIENT WAS STIMULATED. VS STABLE. FULL ASSESSMENT DONE-REFER INTERVENTIONS. RIGHT ARM AND RIGHT LEG ON CAST. REPOSITIONED, ORAL CARE DONE. WILL CONTINUE TO MONITOR
--- NOTE | 2019-02-07 21:02 | NUR ---
sedation decreased but patient started to breath more, vent alarms high pressure kept sedated for the night. Addendum: 02/07/19 at 2104 by Sandra Valencia RN Amended: Links added.
[2019-02-08] VITALS (108 sets, daily range): BP systolic 98–213; BP diastolic 43–95
[2019-02-08] MEDS: MIDAZOLAM DRIP 50 mg/50mL 50 ML IV SCH ×6 (00:13→18:52)
[2019-02-08] MEDS: fentaNYL Drip 2500mCg/250mlNS 250 ML IV SCH ×3 (01:57→22:54)
[2019-02-08] MEDS: VANCOMYCIN 1,500 MG in D5W 5% 250 ML IV SCH ×3 (02:05→11:42)
[2019-02-08] MEDS: CEFEPIME HYDROCHLORIDE 2 GM in SODIUM CHL 0.9% 50 ML IV SCH ×3 (03:41→21:00)
[2019-02-08] MEDS: ACCU-CHEK COMFORT CURVE STRIP VI SCH ×5 (03:48→20:00)
[2019-02-08] MEDS: InsuLIN REG 1unit/0.01ml Soln (100units/ml) SC SCH ×5 (03:48→20:00)
[2019-02-08] MEDS: hydrALAZINE HCL 20 MG/ML VL IV PRN ×2 (03:54→18:53)
--- NOTE | 2019-02-08 04:00 | NUR ---
BP HIGH AFTER RE-CYCLED FEW TIMES, REMAINED HIGH PATIENT'S BP 213/90 MMHG IV HYDRALAZINE GIVEN
[2019-02-08 04:08] LABS: Mean Corpuscular Hemoglobin 22.4 pg (28.0-32.0); Monocytes # (auto) 0.9 uL; Neutrophils # (auto) 5.5 uL; White Blood Cell 7.6 10^3/uL (4.4-10.8)
[2019-02-08 04:12] LABS: Basophils # (auto) 0.2 uL; Eosinophils # (auto) 0.1 uL; Eosinophils % (auto) 0.7 % (0.0-7.0); Hematocrit 32.2 % (41.0-53.0); Hemoglobin 9.8 g/dL (13.5-17.5); Lymphocytes % (auto) 13.3 % (10.0-50.0); Mean Corpuscular Hgb Conc. 30.3 g/dL (32.0-36.0); Mean Corpuscular Volume 73.8 fL (80.0-100.0); Monocytes % (auto) 11.4 % (0.0-12.0); Neutrophils % (auto) 72.6 % (37.0-80.0); Platelet Count (auto) 258 10^3/uL (140-450); Red Blood Cells 4.37 10^6/uL (4.5-5.90); Red Cell Distribution Width 19.1 % (11.8-14.3)
[2019-02-08 04:30] LABS: Potassium 4.2 mmol/L (3.5-5.1)
--- NOTE | 2019-02-08 04:30 | NUR ---
BP RE-ASSESS PATIENT BP 158/66 MMHG, HR 86/MIN
[2019-02-08 04:34] LABS: Albumin 2.6 g/dL (3.4-5.0); BUN/Creatinine Ratio 18.3; Calcium 8.3 mg/dL (8.5-10.1)
[2019-02-08 04:39] LABS: Bilirubin, Total 0.8 mg/dL (0.2-1.0); Total Protein 7.1 g/dL (6.4-8.2)
[2019-02-08] MEDS: ENOXAPARIN SOD 150 MG/1 ML SYRINGE SC SCH ×2 (05:00→09:37)
[2019-02-08] MEDS: FAMOTIDINE (10MG/ML) 2ML VL IV SCH ×2 (05:00→09:36)
--- NOTE | 2019-02-08 05:30 | NUR ---
UNABLE TO RE-INSERT NG/OG TUBE PATIENT BECOMES BRADYCARDIC, DECREASED OXYGEN SATURATION 2 ATTEMPTS MADE PATIENT TOO CRITICAL TO RE-INSERT NG OR OG TUBE Addendum: 02/09/19 at 0819 by Greta Barragan RN INCORRECT TIME NOTED, TIME SHOULD BE 0530, 02/09/19
--- NOTE | 2019-02-08 05:30 | NUR ---
Patient bathe/linen change Patient given complete bath. Skin integrity assessed for any changes. Linens changed. Patient repositioned for comfort. Optifoam sacral changed. Skin remained intact
[2019-02-08] MEDS: OXYCODONE HCL 5MG TAB PO SCH ×3 (06:00→17:41)
--- NOTE | 2019-02-08 06:00 | NUR ---
CHEST XRAY RT informed me that she can't see the ETT in the Xray that was done this morning. ETT checked remained at 24cm lip marking, lung sounds clear, Tidal volumes are at the 500s, saturation 98-99% Xray checked - can't find it either. Called polysomnograph tech Reese to repeat Xray to check ETT placement. He said he will do it just put in the order. Reese called back after few minutes and said that he will call Radiologist for STAT reading before doing another one.
[2019-02-08] MEDS: hydrALAZINE HCL 10 MG TAB PO SCH ×3 (06:46→22:00)
--- NOTE | 2019-02-08 07:10 | NUR ---
CHEST XRAY Report came back the ETT level was unchanged. Informed RT and RN Rah
[2019-02-08] MEDS: DOPamine 1600MCG/ML D5W 250 ML IV SCH ×2 (07:23→17:53)
[2019-02-08] MEDS: BENAZEPRIL HCL 10 MG TAB PO SCH (09:37)
[2019-02-08] MEDS: CARVEDILOL 12.5 MG TAB PO SCH ×2 (09:38→22:00)
[2019-02-08] MEDS: SODIUM CHLOR 0.9% PF (SALINE LOCK) 10ML VIAL/SYR IV SCH ×2 (09:38→22:00)
--- NOTE | 2019-02-08 09:59 | NUR ---
FAMILY AND DAUGHTER AT BEDSIDE. UPDATED ON PATIENT STATUS. ALL QUESTIONS AND CONCERNS ADDRESSED AT THIS TIME
--- NOTE | 2019-02-08 10:50 | NUR ---
WOUND CARE NOTE: Wound care in to see patient due to intubation status and low Bryant score of 12, putting patient to high risk for skin breakdown. Patient is 58 y/o male with admitting diagnosis of Cardio Respiratory Failure, Hyperglycemia. Patient has history of DM, Htn. Patient is resting in ICU bed in Rm 106. He's intubated,sedated and mechanically ventilated. Patient appears to be in no pain using Ewing Brandt Faces Pain Scale. Skin assessment done with the assistance of patient's nurse, VERONIQUE Monreal. No open wound noted other than intact hard casts to his Rt arm and RLE. On reports, patient found by family member on bedroom floor. No pressure injury issue noted. Patient is receiving BID/PRN cleaning and application of Barrier cream to sacrum and perineum with protective Opti foam sacral dressing to upper sacrum. Repositioned patient for comfort facing his Lt side,redistributed pressure points with wedges and pillows. Patient tolerated well. VERONIQUE Monreal at bedside. RECOMMENDATION: BID/PRN cleaning and application of Barrier cream to sacrum/perineum as preventative per MD order, Dietary consult, frequent turning and repositioning schedule as condition permits, redistribute pressure points with pillows, continue monitoring by wound care while patient is mechanically ventilated.
[2019-02-08] MEDS: SODIUM CHLORIDE 0.9% 1,000 ML IV SCH ×2 (10:55→17:16)
--- NOTE | 2019-02-08 11:00 | NUR ---
WOUND CARE NURSE AT BEDSIDE
--- NOTE | 2019-02-08 12:25 | NUR ---
PATIENT EXTUBATED BUFFY MCMAHON AT BEDSIDE. UPDATED ON PLAN OF CARE. ALL QUESTIONS AND CONCERNS ADDRESSED AT THIS TIME. Addendum: 02/08/19 at 1232 by Rah Lomeli RN WRONG PATIENT
[2019-02-08] MEDS: DexMEDEtomidine 400 MCG in D5W 5% 96 ML IV SCH (13:11)
[2019-02-08] MEDS: ARTIFICIAL TEARS 15ml EACHEYE PRN (17:13)
[2019-02-08] MEDS: NOREPINEPHRINE 8 MG/250ML KIT 250 ML IV SCH (18:26)
--- NOTE | 2019-02-08 19:18 | NUR ---
REPORT GIVEN TO JAY PIPER TO ASSUME CARE
--- NOTE | 2019-02-08 19:29 | NUR ---
INITIAL CONTACT ASSUMED CARE OF PATIENT PATIENT APPEARS TO BE RESTING IN BED COMFORTABLY IN SEMI FOWLERS POSITION AT THIS TIME PATIENT IS INTUBATED AND SEDATED ON VERSED AND FENTANYL, SEE IV SPREADSHEET FOR MEDICATIONS AND TITRATION AAO TO SELF FACIAL GRIMACE WITH LIGHT PAIN, NO S/S OF DISTRESS, PATIENT DOES NOT APPEAR TO BE IN PAIN, NO FACIAL GRIMACE AT THIS TIME. VITAL SIGNS SHOW HTN. NOTED VELEZ CATHETER IN PLACE AND DRAINING TO GRAVITY. NOTED TRIPLE LUMEN PICC LINE TO UPPER LEFT ARM NO S/S OF PHLEBITIS OR INFILTRATION. VENTILATOR PLUGGED INTO RED OUTLET PER VAP PROTOCOL, AMBU BAG AT BEDSIDE. BED IN LOWEST LOCKED POSITION, SIDE RAILS UP X 2. PATIENT IN FULL VIEW OF NURSES STATION SAFETY MAINTAINED, WILL CONTINUE TO MONITOR.
--- NOTE | 2019-02-08 20:40 | NUR ---
PT. NOT PULLING TIDAL VOLUMES, DESATING, AMBU BAGGING PATIENT, INCREASE RESISTANCE NOTED. ARMANDO R.T HERE AND ASSISTING UNABLE TO BAG, HR NOTED LOW 40'S, NO PULSE, SATS 20-40%. CODE CALLED. CPR IN PROGRESS. 2044- PRESENT ETT RANDA'GRACIA Allen LAUNDRY MACHINE OPERATOR HERE TO REINTUBATED. 2049 - CPR IN PROGRESS 2099 - INTUBATED, 7.5 FR., 24 AT LIP. SEDATION RESTARTED.
--- NOTE | 2019-02-08 20:45 | NUR ---
PATIENT STATUS NOTICE S/S OF DISTRESS PATIENT DESATTING IN THE 70'S AND 80'S BRADYCARDIC, BUCKING THE VENT CHARGE NURSE AT BEDSIDE FOR ASSISTANCE SUCTIONING PATIENT, MODERATE TO LARGE AMOUNTS OF THICK PINK TINGED MUCUS RT PAGED
--- NOTE | 2019-02-08 20:50 | NUR ---
CODE BLUE CALLED RT AT BEDSIDE CHARGE NURSE/ICU NURSING STAFF AT BEDSIDE FOR ASSISTANCE CPR INITIATED CRASH CART AT BEDSIDE
[2019-02-08] MEDS ORDERED: SUCCINYLCHOLINE CHLORIDE 20 MG/ML 10ML VIAL IV ONE ×2 (20:55→21:00)
--- NOTE | 2019-02-08 21:10 | NUR ---
UNABLE TO RE-INSERT NG/OG TUBE PATIENT BECOMES BRADYCARDIC, DECREASED OXYGEN SATURATION 2 ATTEMPTS MADE PATIENT TOO CRITICAL TO RE-INSERT NG OR OG TUBE
--- NOTE | 2019-02-08 22:00 | NUR ---
SPOUSE AT BEDSIDE CHARGE,VERONIQUE AVILEZ AT BEDSIDE WITH SPOUSE
[2019-02-09] VITALS (104 sets, daily range): BP systolic 137–203; BP diastolic 60–108
[2019-02-09 01:43] LABS: Basophils # (auto) 0.1 uL; Eosinophils # (auto) 0 uL; Eosinophils % (auto) 0.2 % (0.0-7.0); Lymphocytes # (auto) 0.8 uL; Mean Corpuscular Hemoglobin 22.1 pg (28.0-32.0); Monocytes # (auto) 1.3 uL
[2019-02-09 01:44] LABS: Basophils % (auto) 0.9 % (0.0-2.0); Hematocrit 34.3 % (41.0-53.0); Hemoglobin 10.3 g/dL (13.5-17.5); Lymphocytes % (auto) 7.1 % (10.0-50.0); Mean Corpuscular Hgb Conc. 30.1 g/dL (32.0-36.0); Mean Corpuscular Volume 73.4 fL (80.0-100.0); Monocytes % (auto) 10.7 % (0.0-12.0); Neutrophils # (auto) 9.6 uL; Neutrophils % (auto) 81.1 % (37.0-80.0); Platelet Count (auto) 298 10^3/uL (140-450); Red Blood Cells 4.67 10^6/uL (4.5-5.90); Red Cell Distribution Width 18.8 % (11.8-14.3); White Blood Cell 11.8 10^3/uL (4.4-10.8)
[2019-02-09] MEDS: InsuLIN REG 1unit/0.01ml Soln (100units/ml) SC SCH ×6 (04:00→20:16)
[2019-02-09] MEDS: ACCU-CHEK COMFORT CURVE STRIP VI SCH ×6 (04:00→20:10)
--- NOTE | 2019-02-09 04:00 | NUR ---
CALL RCVD FROM SPOUSE SPOKE TO SPOUSE ASTER FOR APPROXIMATELY 35 MIN ALL QUESTIONS AND CONCERNS WERE ADDRESSED AND ANSWERED
--- NOTE | 2019-02-09 04:00 | NUR ---
Patient bathe/linen change Patient given complete bath. Skin integrity assessed for any changes. Linens changed. Patient repositioned for comfort. Gown changed, mouth care given, suction provided as necessary. Suction canisters and tubing replaced. Patient tolerated well
[2019-02-09 04:17] LABS: Anion Gap 9 (5-15); BUN/Creatinine Ratio 18.7; Blood Urea Nitrogen 17 mg/dL (7-18); Carbon Dioxide 20 mmol/L (21-32); Chloride 112 mmol/L (98-107); GFR African American 109 mL/min; GFR Non-African American 90 mL/min; Glucose 172 mg/dL (74-106); Potassium 4.2 mmol/L (3.5-5.1); Sodium 141 mmol/L (136-145)
[2019-02-09 04:18] LABS: Alanine Aminotransferase 98 U/L (16-61); Albumin 2.5 g/dL (3.4-5.0); Alkaline Phosphatase 78 U/L (45-117); Aspartate Aminotransferase 130 U/L (15-37); Bilirubin, Total 0.8 mg/dL (0.2-1.0); Calcium 8.3 mg/dL (8.5-10.1); Total Protein 7.3 g/dL (6.4-8.2)
[2019-02-09] MEDS: DOPamine 1600MCG/ML D5W 250 ML IV SCH ×2 (04:23→14:53)
[2019-02-09] MEDS ORDERED: PROPOFOL 100 ML IV ONE ×2 (04:57→07:16)
[2019-02-09] MEDS ORDERED: PROPOFOL 10 MG/ML 20 ML IV ONE (05:00)
[2019-02-09] MEDS: VANCOMYCIN 1,500 MG in D5W 5% 250 ML IV SCH ×2 (05:00→14:50)
[2019-02-09] MEDS: DexMEDEtomidine 400 MCG in D5W 5% 96 ML IV SCH ×2 (05:05→20:27)
[2019-02-09] MEDS: OXYCODONE HCL 5MG TAB PO SCH ×4 (06:00→18:00)
[2019-02-09] MEDS: hydrALAZINE HCL 10 MG TAB PO SCH ×3 (06:00→22:00)
--- NOTE | 2019-02-09 06:20 | NUR ---
SPOUSE IN WAITING ROOM SPOUSE WOULD LIKE TO SPEAK WITH SEAFOOD SPECIALIST FOR UPDATES ON PATIENT CURRENT CONDITION Addendum: 02/09/19 at 0823 by Greta Barragan RN MSG LEFT WITH DAY SHIFT VERONIQUE/FAN WITH SPOUSES CONCERNS
--- NOTE | 2019-02-09 07:20 | NUR ---
DR. CATALAN AT BEDSIDE PER MD HOOD TO HOLD BETA BLOCKERS AT THIS TIME. PATIENT WITH NO NGT/OGT. UNABLE TO PLACE AFTER MULTIPLE ATTEMPTS BY DAY SHIFT AND PRIVACY MANAGER RN
--- NOTE | 2019-02-09 07:31 | NUR ---
SHIFT OPENING NOTE PATIENT ON MECHANICAL VENTILATOR, SEDATED WITH PROPOFOL, VERSED, AND FENTANYL DEEPLY SEDATED, SEE IV SPREADSHEET, HYPOACTIVE COUGH AND GAG. PUPILS PINPOINT, 1 MM UNABLE TO ASSESS FOR REACTION TO LIGHT, HR 80'S WITH ST DEPRESSION, NO VASOPRESSORS AT THIS TIME, LUNS COARSE WITH MODERATE AMOUNTS OF ORAL AND ET TUBE SECRETIONS. NO NGT OR OGT AT THIS TIME UNABLE TO PLACE AFTER MULTIPLE ATTEMPTS, VELEZ DRAINING CLEAR YELLOW URINE, BAG FREE OF KINKS AND HUNG BELOW BLADDER, SCD TO LEFT CALF, CAST TO RIGHT LEG AND ARM.
--- NOTE | 2019-02-09 07:45 | NUR ---
DR. BACA AT BEDSIDE
[2019-02-09] MEDS: PROPOFOL 100 ML IV SCH ×5 (07:53→22:44)
--- NOTE | 2019-02-09 08:02 | NUR ---
UNABLE TO INSERT NGT AFTER MULTIPLE ATTEMPTS Addendum: 02/09/19 at 0803 by Rah Lomeli RN Amended: Links added.
--- NOTE | 2019-02-09 08:20 | NUR ---
DR. BACA PAGED PAGED DR. BACA FOR SPOUSES CONCERN REGARDING EEG. PER SPOUSE SHE HAS NOT SPOKEN TO THE
--- NOTE | 2019-02-09 08:26 | NUR ---
CALL RCVD FROM DR. BACA PER DR. BACA HE HAS SPOKEN TO SPOUSE/ASTER REGARDING EEG AND HE WILL BE HAPPY TO SPEAK TO HER AGAIN IF SPOUSE MAKES THE REQUEST. I WILL ADVISE SPOUSE ON MY WAY OUT
[2019-02-09] MEDS: MIDAZOLAM DRIP 50 mg/50mL 50 ML IV SCH ×3 (08:29→20:38)
--- NOTE | 2019-02-09 08:57 | NUR ---
DR. BELL PAGED AWAITING CALLBACK
[2019-02-09] MEDS: ENOXAPARIN SOD 150 MG/1 ML SYRINGE SC SCH ×2 (09:21→22:00)
[2019-02-09] MEDS: SODIUM CHLOR 0.9% PF (SALINE LOCK) 10ML VIAL/SYR IV SCH ×2 (09:21→22:00)
[2019-02-09] MEDS: FAMOTIDINE (10MG/ML) 2ML VL IV SCH ×2 (09:21→23:10)
[2019-02-09] MEDS: fentaNYL Drip 2500mCg/250mlNS 250 ML IV SCH ×2 (09:28→21:25)
[2019-02-09] MEDS: CARVEDILOL 12.5 MG TAB PO SCH ×2 (09:37→22:00)
[2019-02-09] MEDS: BENAZEPRIL HCL 10 MG TAB PO SCH (09:38)
--- NOTE | 2019-02-09 09:42 | NUR ---
DR. MCLAUGHLIN UPDATED ON PATIENT STATUS. ORDERS RECEIVED
[2019-02-09] MEDS: IPRATROPIUM BROM 0.5 MG/2.5ML INH SOL NEB SCH ×4 (10:29→22:17)
[2019-02-09] MEDS: ACETYLCYSTEINE 10 %(100MG/ML) SOL 4ML NEB SCH ×4 (10:30→22:18)
[2019-02-09] MEDS: ALBUTEROL SULF 2.5 MG/0.5ML(0.5%) NEB SOLN NEB SCH ×4 (10:30→22:17)
--- NOTE | 2019-02-09 11:04 | NUR ---
AT BEDSIDE. UPDATED ON PATIENT STATUS. ALL QUESTIONS AND CONCERNS ADDRESSED AT THIS TIME
[2019-02-09] MEDS: CEFEPIME HYDROCHLORIDE 2 GM in SODIUM CHL 0.9% 50 ML IV SCH ×2 (11:30→20:26)
[2019-02-09] MEDS: SODIUM CHLORIDE 0.9% 1,000 ML IV SCH (11:39)
[2019-02-09] MEDS ORDERED: ACETYLCYSTEINE 10 %(100MG/ML) SOL 4ML NEB SCH (12:00)
[2019-02-09] MEDS ORDERED: ALBUTEROL SULF 2.5 MG/0.5ML(0.5%) NEB SOLN NEB SCH ×2 (12:00)
[2019-02-09] MEDS ORDERED: IPRATROPIUM BROM 0.5 MG/2.5ML INH SOL NEB SCH ×2 (12:00)
--- NOTE | 2019-02-09 12:04 | NUR ---
Nutrition Follow-up Notes Wt.: 129.4 kg Pt was extubated yesterday but was reintubated with no family by bedside. pt sedated with propofol @ 23.292 ml/hr providing 615 kcals from fats. pt currently NPO with no new diet order Est. Needs ABW [id number] kcal (23-25 kcal/kgBW), 107-117 gms pro (1.0-1.1 gms/kgBW). Will continue to monitor pertinent labs and reassess nutrient need prn Labs: GLU 172 H, CA 8.3 L, ALB 2.5 L. Skin: Bryant scale 11, high risk skin intact per rn clinical documentation specialist. GI: Pt has no BM reported per rn clinical documentation specialist. PES: Altered nutrition related lab values r/t acute/chronic medical condition aeb hyperglycemia, hypocalcemia, mod hypoalb decreased nutrient needs r/t adiposity aeb pt`s high BMI of 36.2 kgm2 Will continue to monitor NPO status, skin status, pertinent labs and weight trend. F/u in 2-3 days. Rec.: 1.) consider alternate nutrition support if pt fails CPAP. Consider EN support with Glucerna @ 65 ml/hr per MD approval. 2) advance diet as medically feasible. 3) refer to CDE on DC. 4) continue current plan of care
--- NOTE | 2019-02-09 14:00 | NUR ---
COMFORT PATIENT REPOSITIONED AND ORAL CARE PERFORMED. PATIENT TOLERATED WELL
--- NOTE | 2019-02-09 17:02 | NUR ---
DR. MCLAUGHLIN AT BEDSIDE
[2019-02-09] MEDS: NOREPINEPHRINE 8 MG/250ML KIT 250 ML IV SCH (18:26)
--- NOTE | 2019-02-09 19:09 | NUR ---
REPORT GIVEN TO JAY PIPER TO ASSUME CARE
[2019-02-09] MEDS ORDERED: ATROPINE SULF 1 MG/10ml SYR IV ONE (19:15)
[2019-02-09] MEDS ORDERED: EPINEPHrine HCL 1 MG/10 ML SYRG IV ONE (19:15)
--- NOTE | 2019-02-09 19:40 | NUR ---
DR. Kishan MOTA AT BEDSIDE
--- NOTE | 2019-02-09 19:40 | NUR ---
DR. Kishan JOHNSON WAS UPDATED ON PATIENT CONDITION ORDERS GIVEN
--- NOTE | 2019-02-09 19:40 | NUR ---
PER DR. BELL, [facility]
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
--- NOTE | 2019-02-09 22:05 | NUR ---
CALL RCVD FROM SISTER SPOKE TO SISTER FOR ANOTHER 20 MINUTES ALL QUESTIONS AND CONCERNS WERE ADDRESSED AND ANSWERED
--- NOTE | 2019-02-09 22:40 | NUR ---
CALL RECEIVED FROM SISTER MORE PATIENT HISTORY GIVEN
[2019-02-10] VITALS (107 sets, daily range): BP systolic 111–184; BP diastolic 49–105
--- NOTE | 2019-02-10 | NUR ---
RT AT BEDSIDE
[2019-02-10] MEDS: ACCU-CHEK COMFORT CURVE STRIP VI SCH ×6 (00:26→21:57)
[2019-02-10] MEDS: VANCOMYCIN 1,500 MG in D5W 5% 250 ML IV SCH ×3 (00:27→21:51)
[2019-02-10] MEDS: MIDAZOLAM DRIP 50 mg/50mL 50 ML IV SCH ×5 (01:10→19:05)
[2019-02-10] MEDS: DOPamine 1600MCG/ML D5W 250 ML IV SCH ×3 (01:23→22:23)
[2019-02-10] MEDS: SODIUM CHLORIDE 0.9% 1,000 ML IV SCH ×2 (02:55→10:28)
--- NOTE | 2019-02-10 03:00 | NUR ---
LAB AT BEDSIDE
--- NOTE | 2019-02-10 03:30 | NUR ---
RT AT BEDSIDE SPUTUM CULTURE COLLECTED AND SENT TO LAB
[2019-02-10 03:48] LABS: Basophils # (auto) 0.1 uL; Eosinophils # (auto) 0.1 uL; Hematocrit 32.3 % (41.0-53.0); Hemoglobin 9.7 g/dL (13.5-17.5); Lymphocytes # (auto) 0.6 uL; Monocytes # (auto) 0.2 uL
[2019-02-10 03:50] LABS: Basophils % (auto) 1.4 % (0.0-2.0); Eosinophils % (auto) 0.8 % (0.0-7.0); Lymphocytes % (auto) 8.5 % (10.0-50.0); Mean Corpuscular Hemoglobin 22.3 pg (28.0-32.0); Mean Corpuscular Hgb Conc. 30.2 g/dL (32.0-36.0); Monocytes % (auto) 2.9 % (0.0-12.0); Neutrophils % (auto) 86.4 % (37.0-80.0); Platelet Count (auto) 226 10^3/uL (140-450); Red Blood Cells 4.36 10^6/uL (4.5-5.90); Red Cell Distribution Width 19.3 % (11.8-14.3)
[2019-02-10] MEDS: PROPOFOL 100 ML IV SCH ×4 (04:00→23:11)
[2019-02-10 04:03] LABS: Albumin 2.3 g/dL (3.4-5.0); Calcium 8.3 mg/dL (8.5-10.1); Potassium 4.6 mmol/L (3.5-5.1)
--- NOTE | 2019-02-10 04:05 | NUR ---
RT AT BEDSIDE
[2019-02-10 04:06] LABS: BUN/Creatinine Ratio 18.6
[2019-02-10 04:08] LABS: Bilirubin, Total 0.6 mg/dL (0.2-1.0); Total Protein 7.3 g/dL (6.4-8.2)
[2019-02-10] MEDS: CEFEPIME HYDROCHLORIDE 2 GM in SODIUM CHL 0.9% 50 ML IV SCH ×3 (04:30→20:24)
[2019-02-10] MEDS: InsuLIN REG 1unit/0.01ml Soln (100units/ml) SC SCH ×6 (05:05→21:58)
[2019-02-10] MEDS: hydrALAZINE HCL 20 MG/ML VL IV PRN ×2 (05:08→05:31)
[2019-02-10] MEDS: IPRATROPIUM BROM 0.5 MG/2.5ML INH SOL NEB SCH ×5 (05:46→22:31)
[2019-02-10] MEDS: ACETYLCYSTEINE 10 %(100MG/ML) SOL 4ML NEB SCH ×3 (05:46→14:23)
[2019-02-10] MEDS: ALBUTEROL SULF 2.5 MG/0.5ML(0.5%) NEB SOLN NEB SCH ×5 (05:46→22:31)
[2019-02-10] MEDS: hydrALAZINE HCL 10 MG TAB PO SCH ×3 (06:00→22:00)
[2019-02-10] MEDS: OXYCODONE HCL 5MG TAB PO SCH ×4 (06:00→18:00)
--- NOTE | 2019-02-10 07:45 | NUR ---
DR BACA AT BEDSIDE DR BACA UPDATED ON PATIENT'S STATUS AND DRIPS, NO ORDERS RECEIVED AT THIS TIME.
[2019-02-10] MEDS: FAMOTIDINE (10MG/ML) 2ML VL IV SCH (09:02)
[2019-02-10] MEDS: SODIUM CHLOR 0.9% PF (SALINE LOCK) 10ML VIAL/SYR IV SCH ×2 (09:02→21:53)
[2019-02-10] MEDS: BENAZEPRIL HCL 10 MG TAB PO SCH (10:00)
[2019-02-10] MEDS: ENOXAPARIN SOD 150 MG/1 ML SYRINGE SC SCH ×2 (10:00→21:52)
[2019-02-10] MEDS: CARVEDILOL 12.5 MG TAB PO SCH (10:00)
--- NOTE | 2019-02-10 10:44 | NUR ---
OGT PLACEMENT AND VERIFIED VIA AUSCULTATION, PATIENT TOLERATED WELL. OGT CONNECTED TO LIS AND A TOTAL OF 150 MLS COFFEE GROUND GASTRIC CONTENT EMPTIED INTO COLLECTION CANISTER. MD WILL BE NOTIFIED. GI CONSULT PENDING (Ovidio FOSTER).
--- NOTE | 2019-02-10 10:55 | NUR ---
DR IGNACIO AT BEDSIDE UPDATED ON PATIENT'S STATUS, ORDERS RECEIVED AND CARRIED OUT.
--- NOTE | 2019-02-10 12:45 | NUR ---
SPOUSE AT BEDSIDE ASTER UPDATED ON PATIENT'S STATUS. ASTER VERBALIZED UNDERSTANDING.
[2019-02-10] MEDS: DexMEDEtomidine 400 MCG in D5W 5% 96 ML IV SCH (12:53)
--- NOTE | 2019-02-10 14:30 | NUR ---
CALL RECEIVED FROM Ovidio FOSTER REGARDING GI CONSULT. DR FOSTER UPDATED ON PATIENT'S STATUS, DRIPS, OGT OUTPUT AND REASON FOR CONSULT. DR FOSTER AWARE OF PEPCID PREVIOUSLY ORDERED BY . ORDERS TO CHANGE TO NEXIUM OR PROTONIX 40 MG Q12H "WHICH EVERY IS AVAILABLE" RECEIVED. DR FOSTER STATED SHE WOULD POSSIBLY BE IN LATER TONIGHT. ORDERS WILL BE CARRIED OUT.
[2019-02-10] MEDS ORDERED: DEXTROSE (50%) 50ML SYRG IV PRN (15:15)
--- NOTE | 2019-02-10 15:35 | NUR ---
DR FOSTER AT BEDSIDE DISCUSSED PLAN OF CARE WITH THIS NURSE. ORDERS TO "LAVAGE OGT WITH 500 MLS WATER" AND OK TO ADMINISTER MEDICATIONS VIA OGT. ORDERS WILL BE CARRIED OUT.
--- NOTE | 2019-02-10 17:05 | NUR ---
CALL RECEIVED FROM PULMONOLOGY DR MOTA UPDATED ON PATIENT'S STATUS, DRIPS, IMAGES AND MEDICATIONS. ORDERS RECEIVED AND CARRIED OUT.
[2019-02-10] MEDS ORDERED: FUROSEMIDE 40 MG/4 ML VIAL IV ONE (17:15)
--- NOTE | 2019-02-10 17:48 | NUR ---
DR MOTA AT BEDSIDE ORDERS TO DISCONTINUE MUCOMYST RECEIVED WELL MAINTENANCE FLUID. ORDERS CARRIED OUT.
[2019-02-10] MEDS: NOREPINEPHRINE 8 MG/250ML KIT 250 ML IV SCH (18:12)
--- NOTE | 2019-02-10 18:19 | NUR ---
Family updated on pt status Family of RASHELELAINE updated on patient's status and condition after password verification. All questions and concerns addressed. Juana, patient's sister verbalized understanding. JUANA
--- NOTE | 2019-02-10 19:30 | NUR ---
Opening notes Assumed care, still on vent AC mode and sedation with propofol, fentanyl and versed, see spreadsheet for titration infusing in the left upper arm PICC line, vivas catheter draining to a clear urine, cast in the right leg intact with arm sling in the right upper extremity, OGT connected to LIS. Bed in lowest position with side rails up, bed alarm on. Will continue care.
--- NOTE | 2019-02-10 19:30 | NUR ---
END OF SHIFT PATIENT CARE ENDORSED TO BOBTAILER RN.
--- NOTE | 2019-02-10 20:25 | NUR ---
Family at bedside
[2019-02-10] MEDS: ARTIFICIAL TEARS 15ml EACHEYE PRN (21:52)
[2019-02-10] MEDS ORDERED: PANTOPRAZOLE 40 MG/10 ML VIAL INJ IV SCH (22:00)
[2019-02-11] VITALS (103 sets, daily range): BP systolic 106–236; BP diastolic 61–115
--- NOTE | 2019-02-11 00:20 | NUR ---
Report given to Fozia PIPER to assume care.
--- NOTE | 2019-02-11 00:23 | NUR ---
RECEIVED REPORT AND ASSUMED CARE FROM VERONIQUE URENA
--- NOTE | 2019-02-11 01:00 | NUR ---
ASSESSMENT: INTUBATED AND ON SEDATION. OPENS EYES, DOES NOT FOLLOW COMMANDS, NOR TRACK AT THIS TIME. NSR WITH INVERTED T WAVE, HR 80-90s. BP 180/100s. 7.5 ETT, 24 AT THE LIP. LS CTA, DIMINISHED TO BASES. EVEN AND UNLABORED BREATHING. SpO2>95% ON CURRENT VENT SETTINGS. COPIOUS AMOUNTS OF THICK ORAL SECRETIONS. MODERATE THICK CREAMY BLOOD TINGED ETT SECRETIONS. ABD DISTENDED BUT SOFT. HYPOACTIVE BS. UNKNOWN LBM. OGT +AIR BOLUS, LIS, MINIMAL OUTPUT. VELEZ PATENT AND INTACT, DRAINING CLEAR YELLOW URINE. RIGHT ARM AND RIGHT LEG IN CAST, +CMS. SKIN GROSSLY INTACT OTHERWISE. LEFT UPPER ARM PICC, CDI, PATENT WITH BLOOD RETURN. RIGHT UPPER CHEST 22 G PIV, CDI, PATENT WITH BLOOD RETURN. NO PAIN BEHAVIORS IDENTIFIED AT THIS TIME. REINFORCED POC. MAINTAINED PATIENT SAFETY: BED LOCKED AND IN THE LOWEST POSITION. FREQUENT VISUAL CHECKS. WILL CONT CARE
[2019-02-11] MEDS: ARTIFICIAL TEARS 15ml EACHEYE PRN ×2 (01:08→15:11)
[2019-02-11] MEDS: hydrALAZINE HCL 20 MG/ML VL IV PRN ×4 (01:09→22:02)
--- NOTE | 2019-02-11 01:10 | NUR ---
BP ON FOREARM 180/100s - HYDRALAZINE PRN GIVEN
[2019-02-11] MEDS: OXYCODONE HCL 5MG TAB PO SCH ×4 (01:15→17:19)
--- NOTE | 2019-02-11 01:18 | NUR ---
OXYCODONE PRN GIVEN: PER DR. MOTA'S NOTE FROM THE 02/06-02/07, SUGGESTED TO GIVE OXYCODONE FOR CHRONIC BACK PAIN AND KNOWN ARM AND LEG FRACTURES TO ASSIST WITH SEDATION WEANING.
--- NOTE | 2019-02-11 02:05 | NUR ---
SBP NOW 140s
[2019-02-11] MEDS: CARVEDILOL 12.5 MG TAB PO SCH ×3 (02:06→22:01)
[2019-02-11] MEDS: IPRATROPIUM BROM 0.5 MG/2.5ML INH SOL NEB SCH ×6 (02:25→21:38)
[2019-02-11] MEDS: ALBUTEROL SULF 2.5 MG/0.5ML(0.5%) NEB SOLN NEB SCH ×6 (02:25→21:38)
[2019-02-11] MEDS: DexMEDEtomidine 400 MCG in D5W 5% 96 ML IV SCH ×2 (02:42→20:41)
--- NOTE | 2019-02-11 02:47 | NUR ---
STARTED PRECEDEX GTT
--- NOTE | 2019-02-11 03:50 | NUR ---
PICC WITH EXTREMELY SLUGGISH BLOOD RETURN - ASKED TURRET LATHE MACHINIST TO DRAW
[2019-02-11] MEDS: CEFEPIME HYDROCHLORIDE 2 GM in SODIUM CHL 0.9% 50 ML IV SCH ×3 (03:51→20:01)
--- NOTE | 2019-02-11 03:51 | NUR ---
BED BATH WITH CHG WIPES, JOSELO CARE, VELEZ CARE, ORAL CARE, AND FULL LINEN CHANGE COMPLETED
[2019-02-11 04:39] LABS: Potassium 4.9 mmol/L (3.5-5.1)
[2019-02-11 04:43] LABS: Basophils # (auto) 0.1 uL; Hemoglobin 9.6 g/dL (13.5-17.5); Lymphocytes # (auto) 1.3 uL; Nucleated Red Blood Cells % 0.1 %; Platelet Count (auto) 283 10^3/uL (140-450); White Blood Cell 9.1 10^3/uL (4.4-10.8)
[2019-02-11 04:45] LABS: Eosinophils # (auto) 0.1 uL; Eosinophils % (auto) 1.6 % (0.0-7.0); Hematocrit 31.4 % (41.0-53.0); Lymphocytes % (auto) 14.1 % (10.0-50.0); Mean Corpuscular Hemoglobin 22.3 pg (28.0-32.0); Mean Corpuscular Hgb Conc. 30.5 g/dL (32.0-36.0); Mean Corpuscular Volume 73.4 fL (80.0-100.0); Monocytes % (auto) 10.7 % (0.0-12.0); Neutrophils # (auto) 6.6 uL; Neutrophils % (auto) 72.6 % (37.0-80.0); Red Blood Cells 4.27 10^6/uL (4.5-5.90); Red Cell Distribution Width 19.2 % (11.8-14.3)
[2019-02-11 04:45] LABS: Albumin 2.2 g/dL (3.4-5.0); BUN/Creatinine Ratio 31.9; Bilirubin, Total 0.5 mg/dL (0.2-1.0); Calcium 8.3 mg/dL (8.5-10.1); Total Protein 6.6 g/dL (6.4-8.2)
[2019-02-11] MEDS: hydrALAZINE HCL 10 MG TAB PO SCH ×3 (05:59→22:01)
[2019-02-11] MEDS: VANCOMYCIN 1,500 MG in D5W 5% 250 ML IV SCH ×2 (06:00→17:18)
[2019-02-11] MEDS ORDERED: FUROSEMIDE 40 MG/4 ML VIAL IV ONE (06:00)
[2019-02-11] MEDS: ACCU-CHEK COMFORT CURVE STRIP VI SCH ×4 (06:16→22:01)
[2019-02-11] MEDS: InsuLIN REG 1unit/0.01ml Soln (100units/ml) SC SCH ×4 (06:16→22:01)
--- NOTE | 2019-02-11 06:30 | NUR ---
CLOSING NOTE: REMAINS LETHARGIC. NOT FOLLOWING COMMANDS, NOR TRACKING. WILL CONT CARE Addendum: 02/11/19 at 0715 by Fozia Taylor RN RN SOFT MITTEN PLACED TO LEFT HAND
--- NOTE | 2019-02-11 07:15 | NUR ---
REPORT AND CARE ENDORSED TO VERONIQUE FAITH
[2019-02-11] MEDS: DOPamine 1600MCG/ML D5W 250 ML IV SCH ×2 (07:58→19:23)
--- NOTE | 2019-02-11 09:30 | NUR ---
Awaiting cpap trial Patient currently on Precedex, see iv spreadsheet. Opening eyes only to voice, does not follow command at this time, tolerating ventilator well. Precedex off at this time. Once awake patient to be placed on cpap.
[2019-02-11] MEDS ORDERED: THIAMINE 100mg/ml INJ (200mg/2ml VIAL) IV SCH (10:00)
[2019-02-11] MEDS: BENAZEPRIL HCL 10 MG TAB PO SCH (10:21)
--- NOTE | 2019-02-11 11:07 | NUR ---
at bedside Dr. Riojas at bedside. Updated on patients status. Md reviewed plan of care with at bedside. See new orders. Addendum: 02/11/19 at 2009 by Yasemin Negrete RN Assess with md if patient is not extubated for possible nutrition orders to be started. stated hold off feedings today and see how cpap trial goes, possible nutrition started in the "next few days".
[2019-02-11] MEDS ORDERED: FAMOTIDINE (10MG/ML) 2ML VL IV ONE (11:15)
[2019-02-11] MEDS: FOLIC ACID 1 MG, MULTIPLE VITAMIN 10 ML, MAGNESIUM SULF SDV 50% 8 MEQ, THIAMINE INJ 100... INJ SCH ×5 (11:55)
[2019-02-11] MEDS: SODIUM CHLOR 0.9% PF (SALINE LOCK) 10ML VIAL/SYR IV SCH ×2 (11:58→22:00)
--- NOTE | 2019-02-11 12:00 | NUR ---
NEURO Patient remains off all sedation, opening eyes spontaneously, tracking, able to follow simple command and move left foot when asked, remaining calm on ventilator. VSS. R.t paged to place pt on cpap trial
--- NOTE | 2019-02-11 12:20 | NUR ---
Respiratory note: PT PLACED ON CPAP WITH A PEEP OF 5, PS OF 8, AND 30% FIO2. HR 87, RR 19, POX 96%. NO SOB NOTED. RN AT BEDSIDE AND AWARE. WILL DRAW ABG IN ONE HOUR.
--- NOTE | 2019-02-11 12:43 | NUR ---
Nutrition Follow-up Notes Wt.: 130.0 kg Pt was intubated with no family by bedside. pt off sedation for possible CPAP per RN. pt currently NPO with no new diet order Est. Needs ABW [id number] kcal (23-25 kcal/kgBW), 107-117 gms pro (1.0-1.1 gms/kgBW). Will continue to monitor pertinent labs and reassess nutrient need prn Labs: BUN 22 H, GLU 172 H, CA 8.3 L, ALB 2.2 L. Skin: Bryant scale 13, mod risk skin intact per water treatment plant operator. GI: Pt has no BM reported per water treatment plant operator. PES: Altered nutrition related lab values r/t acute/chronic medical condition aeb hyperglycemia, hypocalcemia, mod hypoalb decreased nutrient needs r/t adiposity aeb pt`s high BMI of 36.2 kgm2 Will continue to monitor NPO status, skin status, pertinent labs and weight trend. F/u in 2-3 days. Rec.: 1.) consider alternate nutrition support if pt fails CPAP. Consider EN support with Glucerna @ 65 ml/hr per MD approval. 2) advance diet as medically feasible. 3) refer to CDE on DC. 4) continue current plan of care
--- NOTE | 2019-02-11 13:40 | NUR ---
Respiratory note: PT PLACED BACK ONTO AC MODE BECAUSE OF INCREASED ANXIETY AND SOB WITH RR OF 40-45. RN AT BEDSIDE AND AWARE.
--- NOTE | 2019-02-11 14:00 | NUR ---
CPAP FAILED PATIENT BECAME TACHYCARDIAC 130-145, HYPERTENSIVE 178/115, RR 30-40. PRN ATIVAN ADMINISTERED AND INEFFECTIVE. DR. DELGADO AWARE, NEW ORDERS FOR VENT CHANGES AT THIS TIME. FENT TO BE RESTARTED AND PRN VERSED TO BE ADMINISTERED. PER MD IF PATIENT DOES NOT TOLERATE SIMV OK TO SWITCH BACK TO PREVIOUS SETTINGS. AT BEDSIDE AWARE.
--- NOTE | 2019-02-11 14:00 | NUR ---
Respiratory note: PT PLACED ON SIMV MODE PER DR. MOTA WITH A RR 12, VT 550, PS 8, PEEP 5 AND 30% FIO2 AFTER FAILING CPAP TRAIL. PT IS TOLERATING SIMV WELL, BUT CONTINUES TO BE TACHYPNEIC WITH A RR 28-32. WILL OBTAIN ABG AFTER TWO HOURS IF PT CONTINUES TO TOLERATE THE SIMV SETTINGS.
[2019-02-11] MEDS: fentaNYL Drip 2500mCg/250mlNS 250 ML IV SCH ×2 (14:05→21:04)
[2019-02-11] MEDS: MIDAZOLAM HCL 1MG/1ML-2 ML VIAL IV PRN ×2 (14:16→20:01)
--- NOTE | 2019-02-11 15:00 | NUR ---
Right eye redness Prn eye drops inserted as ordered. Small amount of discharge noted from right eye compared to throughout day. Eye care provided. Will continue to monitor for further discharge at this time.
--- NOTE | 2019-02-11 15:17 | NUR ---
RESTLESSNESS PRNS ADMINISTERED ORDERED. PT REMAINS ST 115-120, RR 25-30'S, LABORED BREATHING, NOT TOLERATING VENTILATOR, ALARMING HIGH RESP. RATE, LOW TIDAL VOLUMES. MODERATE TO LARGE, CREAMY THICK, SECRETIONS NOTED ETT AND ORALLY. R.T PAGED TO NOTIFY. SEDATION RESTARTED FOR PATIENTS COMFORT.
--- NOTE | 2019-02-11 15:30 | NUR ---
Respiratory note: PT BECAME MORE TACHYPNEIC AND RESTLESS AND WAS PLACED ON AC MODE WITH SAME SETTINGS: RR 16, VT 550, PEEP 5, AND 30% FIO2. RN AT BEDSIDE AND AWARE. PT PLACED BACK ONTO SEDATION AND APPEARS TO BE BREATHING MORE COMFORTABLY.
--- NOTE | 2019-02-11 15:54 | NUR ---
Head Ct held at this time, pt remains tachycardic and hypertensive. Will call when patient stable to transport.
--- NOTE | 2019-02-11 15:57 | NUR ---
Neurologist Dr. Lainez at bedside. MD updated at bedside. See new orders.
[2019-02-11] MEDS: NOREPINEPHRINE 8 MG/250ML KIT 250 ML IV SCH (17:19)
--- NOTE | 2019-02-11 17:20 | NUR ---
HYPERTENSION PATIENT REMAINS HYPERTENSIVE, PRN ADMINISTERED, SEDATION INCREASED FOR COMFORT, PT NOW LIGHTLY SEDATED, WILL CONTINUE TO MONITOR.
--- NOTE | 2019-02-11 19:30 | NUR ---
OPENING NOTE: INTUBATED AND SEDATED, TACHYPNEIC, TACHYCARDIC, HYPERTENSIVE. SINUS TACH 100-140s SBP > 200. 7.5 ETT, 24 AT THE LIP. STACKING HIS BREATHS, RR RANGING FROM 20s-30s. LS CTA, DIMINISHED TO BASES. SpO2>95% ON CURRENT VENT SETTINGS. OGT +AIR BOLUS, CLAMPED. ABD DISTENDED BUT SOFT. HYPOACTIVE BS. UNKNOWN LBM. VELEZ PATENT AND INTACT, DRAINING LIGHT LEODAN URINE. LEFT UPPER ARM PICC, CDI, BUT UNABLE TO GET BLOOD RETURN. SKIN GROSSLY INTACT, NOTED WITH WOUND TO RIGHT POSTERIOR ARM. REINFORCED POC. MAINTAINED PATIENT SAFETY: BED LOCKED AND IN THE LOWEST POSITION, FREQUENT VISUAL CHECKS. WILL CONT CARE
--- NOTE | 2019-02-11 19:45 | NUR ---
NOTED WITH OPEN ULCER TO THE BACK OF RIGHT ARM, WHERE CAST HITS HIS ARM - WOUND PICTURE TAKEN, COVERED WITH GENTLE OPTIFOAM
--- NOTE | 2019-02-11 20:02 | NUR ---
TEMP 100.6 ORALLY REMOVED BLANKETS, PLACED FAN ON HIM, ICE PACKS BILATERALLY APPLIED TO AXILLA
[2019-02-11] MEDS: PROPOFOL 100 ML IV SCH ×2 (20:06→22:48)
--- NOTE | 2019-02-11 21:00 | NUR ---
UNABLE TO COMPLETE SEDATION VACATION AT THIS TIME: PATIENT REMAINS HYPERTENSIVE AND TACHYCARDIC. WILL REASSESS NECESSITY OF SEDATION Addendum: 02/11/19 at 2034 by Fozia Taylor RN RN Amended: Links added.
--- NOTE | 2019-02-11 22:00 | NUR ---
TOO UNSTABLE TO TAKE TO CT AT THIS TIME, ELEVATED BP
--- NOTE | 2019-02-11 22:00 | NUR ---
TEMP 100.8 - PLACED ICE PACK IN GROIN
[2019-02-11] MEDS: ATORVASTATIN 20 MG TAB PO SCH (22:01)
--- NOTE | 2019-02-11 23:22 | NUR ---
STARTED ON PRECEDEX GTT: GOAL TO SEDATE PATIENT FOR HEAD CT AND ALSO WEAN SEDATION FOR CPAP TRIAL IN AM.
[2019-02-12] VITALS (103 sets, daily range): BP systolic 91–186; BP diastolic 44–95
--- NOTE | 2019-02-12 | NUR ---
TOO UNSTABLE TO TAKE TO CT AT THIS TIME, RESPIRATORY RATE IN THE HIGH 20s
[2019-02-12] MEDS: OXYCODONE HCL 5MG TAB PO SCH ×4 (00:17→17:33)
--- NOTE | 2019-02-12 00:26 | NUR ---
TEMP REMAINS 100.8 DESPITE CURRENT COOLING MEASURES - WILL PLACE ON COOLING BLANKET
[2019-02-12] MEDS: MIDAZOLAM HCL 1MG/1ML-2 ML VIAL IV PRN (00:52)
[2019-02-12] MEDS: MIDAZOLAM DRIP 50 mg/50mL 50 ML IV SCH ×5 (01:15→15:36)
--- NOTE | 2019-02-12 01:31 | NUR ---
CINDER PIT WORKER ABORTED SEDATING WEANING ATTEMPT: PATIENT TACHYPNEIC, DESPITE PRECEDEX ADDED. PLACED PATIENT BACK ON VERSED TO TRANSPORT PATIENT HEAD CT.
--- NOTE | 2019-02-12 01:45 | NUR ---
CALLED RADIOLOGY - NO ANSWER
--- NOTE | 2019-02-12 02:00 | NUR ---
CALLED RADIOLOGY - NO ANSWER
[2019-02-12] MEDS: ALBUTEROL SULF 2.5 MG/0.5ML(0.5%) NEB SOLN NEB SCH ×6 (02:10→22:12)
[2019-02-12] MEDS: IPRATROPIUM BROM 0.5 MG/2.5ML INH SOL NEB SCH ×6 (02:10→22:12)
[2019-02-12] MEDS: PROPOFOL 100 ML IV SCH ×5 (02:15→17:35)
--- NOTE | 2019-02-12 02:15 | NUR ---
TEMP DOWN TO 99.2F RECTALLY
--- NOTE | 2019-02-12 02:52 | NUR ---
RETURNED FROM CT WITH PT. PT WAS TAKEN ON TRILOGY VENT WITH SAME SETTINGS. PT WAS TRANSPORTED WITHOUT ANY INCIDENT. PT PLACED BACK ON VENT IN ROOM 106 AND TOLERATING WELL. UTE DELGADO TO RESUME CARE.
--- NOTE | 2019-02-12 02:55 | NUR ---
PATIENT TAKEN TO AND BROUGHT BACK FROM CT WITH SUNSHINE MARTIN RN, ALVA, LEAD RT, LEODAN, MT AND YARN PACKER -
[2019-02-12] MEDS: VANCOMYCIN 1,500 MG in D5W 5% 250 ML IV SCH ×3 (03:09→23:00)
--- NOTE | 2019-02-12 03:41 | NUR ---
DESPITE MAX'D ON FENTANYL, TOM ENRIQUE STILL BREATHING IN THE MID TO HIGH 20s.
[2019-02-12 03:58] LABS: Basophils # (auto) 0.1 uL; Basophils % (auto) 0.9 % (0.0-2.0); Eosinophils # (auto) 0.2 uL; Eosinophils % (auto) 1.6 % (0.0-7.0); Hematocrit 28.8 % (41.0-53.0); Lymphocytes # (auto) 1.5 uL; Lymphocytes % (auto) 14.3 % (10.0-50.0); Mean Corpuscular Hemoglobin 22.7 pg (28.0-32.0); Mean Corpuscular Hgb Conc. 31.2 g/dL (32.0-36.0); Mean Corpuscular Volume 72.7 fL (80.0-100.0); Monocytes # (auto) 1.3 uL; Monocytes % (auto) 12.4 % (0.0-12.0); Neutrophils # (auto) 7.4 uL; Neutrophils % (auto) 70.8 % (37.0-80.0); Platelet Count (auto) 245 10^3/uL (140-450); Red Blood Cells 3.97 10^6/uL (4.5-5.90); Red Cell Distribution Width 19.1 % (11.8-14.3); White Blood Cell 10.5 10^3/uL (4.4-10.8)
--- NOTE | 2019-02-12 04:00 | NUR ---
PARTIAL BED BATH, AND PARTIAL LINEN CHANGE COMPLETED
[2019-02-12] MEDS: CEFEPIME HYDROCHLORIDE 2 GM in SODIUM CHL 0.9% 50 ML IV SCH ×3 (04:03→20:24)
[2019-02-12 04:05] LABS: Albumin 2.5 g/dL (3.4-5.0); Calcium 8.5 mg/dL (8.5-10.1); Potassium 3.4 mmol/L (3.5-5.1)
[2019-02-12 04:08] LABS: BUN/Creatinine Ratio 23.7; Bilirubin, Total 0.8 mg/dL (0.2-1.0); Total Protein 6.8 g/dL (6.4-8.2)
[2019-02-12] MEDS: DOPamine 1600MCG/ML D5W 250 ML IV SCH ×2 (05:12→10:56)
[2019-02-12] MEDS: hydrALAZINE HCL 10 MG TAB PO SCH ×3 (05:35→22:36)
[2019-02-12] MEDS: InsuLIN REG 1unit/0.01ml Soln (100units/ml) SC SCH ×4 (05:35→22:00)
[2019-02-12] MEDS: ACCU-CHEK COMFORT CURVE STRIP VI SCH ×4 (05:35→22:00)
--- NOTE | 2019-02-12 05:36 | NUR ---
PATIENT FINALLY NOT STACKING BREATHS NOR BREATHING OVER THE VENTILATOR
--- NOTE | 2019-02-12 06:06 | NUR ---
CLOSING NOTE: REMAINS INTUBATED AND SEDATED. UNABLE TO WEAN SEDATION FOR CPAP TRIAL. FEVER, TACHYCARDIA, TACHYPNEA, AND HYPERTENSION RESOLVED AT THIS TIME. WILL ENDORSE CARE TO ONCOMING SHIFT.
[2019-02-12] MEDS: fentaNYL Drip 2500mCg/250mlNS 250 ML IV SCH ×2 (06:56→19:12)
--- NOTE | 2019-02-12 07:00 | NUR ---
REPORT AND CARE ENDORSED TO VERONIQUE RODRIGUEZ
--- NOTE | 2019-02-12 07:35 | NUR ---
ASSESS- PT. LYING IN BED ON VENT SIZE # 7.5, ET, 24 AT THE LIP, AC-16, TV-550, PEEP-5, FIO2-30%. LUNGS CLEAR JARED. INSPIRATORY AND EXPIRATORY. PT. DOES NOT HAVE GAG/COUGH REFLEX AT THIS TIME. PUPILS 2 AND SLUGGISH JARED., REDDENED JARED. NO MOVEMENT OF EXTREMITIES SEEN. DOES NOT FOLLOW ANY COMMANDS. FENTANYL GTT. AT 200 MCG., PROPOFOL GTT. AT 50 MCG. AND VERSED GTT. AT 15 MG./HR. OGT IN PLACE TO LIS. ABD. SOFT, LG., SLIGHTLY DISTENDED. BOWEL SOUNDS ALL FOUR QUADRANTS. F/C TO GRAVITY WITH LT. LEODAN URINE WITH SEDIMENT. RT. ARM IN CAST AND RT. LOWER LEG IN CAST. UNABLE TO ASSESS RT. RADIAL PULSE, FINGERS WARM TO TOUCH WITH BRISK CAPILLARY REFILL RT. HAND. LT. RADIAL PULSE STRONG, PALPABLE. DORSALIS PEDAL PULSES STRONG, PALPABLE JARED. RT. FOOT WITH BRISK CAPILLARY REFILL, SKIN WARM TO TOUCH. 1 PLUS EDEMA LT. ARM AND HAND. SCD LT. LE. PICC LINE TLC MAGDA INTACT. COOLING BLANKET UNDER PT. WITH SHEET BARRIER TO SKIN, RECTAL TEMP 98.5 AT THIS TIME.
--- NOTE | 2019-02-12 08:30 | NUR ---
Family updated on pt status Family of ELAINE KISER updated on patient's status and condition. All questions and concerns addressed. verbalized understanding. VISITING AT THE BS.
--- NOTE | 2019-02-12 08:42 | NUR ---
DR. OSUNA Provider/Hospitalist at bedside. GAVE UPDATE ON PT. AT THE BS. NEW ORDERS RECEIVED.
[2019-02-12] MEDS ORDERED: FUROSEMIDE 40 MG/4 ML VIAL IV ONE (09:00)
--- NOTE | 2019-02-12 09:00 | NUR ---
PT. HAS NO GAG/COUGH REFLEX. RESPONDS TO DEEP PAINFUL STIMULI. TITRATING PROPOFOL GTT. AND VERSED GTT. DOWN SLOWLY.
[2019-02-12] MEDS: ENOXAPARIN SOD 40 MG/0.4 ML SYRINGE SC SCH (09:32)
[2019-02-12] MEDS: FAMOTIDINE (10MG/ML) 2ML VL IV SCH (09:33)
[2019-02-12] MEDS: BENAZEPRIL HCL 10 MG TAB PO SCH (09:33)
[2019-02-12] MEDS: ASPirin 81 mg TAB PO SCH (09:33)
[2019-02-12] MEDS: SODIUM CHLOR 0.9% PF (SALINE LOCK) 10ML VIAL/SYR IV SCH ×2 (09:34→22:00)
[2019-02-12] MEDS: CARVEDILOL 12.5 MG TAB PO SCH ×2 (09:34→22:35)
[2019-02-12] MEDS: QUEtiapine FUMARATE 25 MG TAB PO SCH ×2 (10:09→22:35)
[2019-02-12] MEDS: DexMEDEtomidine 400 MCG in D5W 5% 96 ML IV SCH (10:18)
[2019-02-12] MEDS: NOREPINEPHRINE 8 MG/250ML KIT 250 ML IV SCH (10:56)
[2019-02-12] MEDS: FOLIC ACID 1 MG, MULTIPLE VITAMIN 10 ML, MAGNESIUM SULF SDV 50% 8 MEQ, THIAMINE INJ 100... INJ SCH ×5 (11:21)
--- NOTE | 2019-02-12 11:30 | NUR ---
DR. IGNACIO Provider/Hospitalist at bedside. GAVE UPDATE ON PT. NEW ORDERS RECEIVED.
--- NOTE | 2019-02-12 12:46 | NUR ---
WOUND CARE NOTE: New wound care request received regarding "open sore to Right upper arm; cast to right upper and lower extremity, low Bryant" Patient is on wound care monitoring list due to intubation status and low Bryant score. Patient continue resting in ICU bed in Rm 106. He's still intubated,sedated and mechanically ventilated. Patient appears to be in no pain using Ewing Brandt Faces Pain Scale. Skin assessment done with the assistance of patient's nurse, VERONIQUE Butts. Patient still has hard casts to his Rt arm and RLE. Patient has edematous extremities and developed serum filled blister to Rt upper arm or it could be from rubbing to edges of Rt upper arm cast. Blister opened up and now dry (1.5x7cm) with open skin tear (1.5x1.5cm). Bedside nurse cleansed patient's skin tear,photographed taken for reference upon discovery and applied wound dressing per MD order (Thera honey gel and Opti foam gentle dressing). No pressure injury issue noted. Patient is receiving BID/PRN cleaning and application of Barrier cream to sacrum and perineum as preventative with protective Opti foam sacral dressing to upper sacrum. Repositioned patient for comfort facing his Rt side,redistributed pressure points with wedges and pillows. Patient tolerated well. VERONIQUE Butts at bedside. RECOMMENDATION: Q3D/PRN cleaning dressing change to Rt upper arm wound per MD order,continuation of all other wound care order prescribed by MD, continue with skin/wound plan of care,continue monitoring by wound care while patient is mechanically ventilated. Addendum: 02/12/19 at 1648 by Prabha Hodge RN Amended: Links added.
[2019-02-12] MEDS: Glucerna 1.2 Cal 1Liter BOTTLE GT SCH (13:00)
--- NOTE | 2019-02-12 13:00 | NUR ---
OGT placement verified by aspiration of stomach contents, residual check, or air auscultation. Tube feeding started per MD order. STARTED GLUCERNA 1.2 AT 10 CC/HR. WITH GOAL RATE OF 60 CC/HR.
--- NOTE | 2019-02-12 13:00 | NUR ---
LAB HAS BEEN UNABLE TO DRAW VANCO TROUGH TIMES 2 TECHS. TIMED DRAW AT 1200 NOON. ABLE TO DRAW BLOOD FROM PICC MAGDA WITHOUT DIFFICULTY. NOTIFIED PHARMACIST THAT VANCO TROUGH WAS DRAWN LATE.
--- NOTE | 2019-02-12 14:40 | NUR ---
VANCO TROUGH 16.6. ADMINISTERED VANCOMYACIN ORDERED.
--- NOTE | 2019-02-12 15:30 | NUR ---
VISITING AT THE BS.
--- NOTE | 2019-02-12 18:05 | NUR ---
REPORT GIVEN TO VERONIQUE GALDAMEZ.
--- NOTE | 2019-02-12 18:10 | NUR ---
ASSUMED CARE OF PATIENT - SEE SPREAD SHEET
--- NOTE | 2019-02-12 18:45 | NUR ---
DR IGNACIO NOTIFIED OF K+ THIS AM 3.4 AND URINE OUTPUT 3275ML - ORDER RECEIVED.
--- NOTE | 2019-02-12 19:30 | NUR ---
Opening Shift Note Received patient on mechanical ventilator sedated on versed, propofol, and fentanyl. Pt does not open eyes to verbal stimuli or painful stimuli, does withdraw to deep pain and facial grimaces to oral care. Minimal cough and gag noted. No secretions suctioned from ET tube. Thin white secretions suctioned orally. Pupils are 2 and sluggish with redness to eyes noted. OGT in place infusing glucerna at 10 ccs/hr, no residuals, will increase to goal rate of 30 ccs/hr as tolerated. BS present in all four quadrants, abdomen Soft, large and slightly distended. Lopez catheter in place draining light you urine, secured below bladder and free of kinks. Pt has right arm cast and right lower leg cast. All pulses palpable. Right leg capillary refill <3 seconds and warm. Right fingers warm to touch, cap refill <3 seconds. Left arm and leg palpable strong pulses and warm to touch. No S/S of distress noted. All alarms on and audible. Bed locked in lowest position Pt in full view of RN. Will continue to monitor closely.
[2019-02-12] MEDS: POTASSIUM CHL 20MEQ/100ML 100 ML IV SCH ×2 (20:24→21:15)
--- NOTE | 2019-02-12 20:30 | NUR ---
FAMILY Family called for update on pt status. After password was provided, update given to Sister, Juana. All questions and concerns addressed at this time.
[2019-02-12] MEDS: ATORVASTATIN 20 MG TAB PO SCH (22:34)
[2019-02-13] VITALS (105 sets, daily range): BP systolic 121–197; BP diastolic 54–105
--- NOTE | 2019-02-13 | NUR ---
RESIDUALS No residuals aspirated via OGT tube. Pt tolerating feeding, increased rate to 20cc's/hr.
[2019-02-13] MEDS: OXYCODONE HCL 5MG TAB PO SCH ×4 (00:07→17:50)
[2019-02-13] MEDS: PROPOFOL 100 ML IV SCH ×5 (01:15→20:18)
[2019-02-13] MEDS: ALBUTEROL SULF 2.5 MG/0.5ML(0.5%) NEB SOLN NEB SCH ×6 (02:21→22:04)
[2019-02-13] MEDS: IPRATROPIUM BROM 0.5 MG/2.5ML INH SOL NEB SCH ×6 (02:21→22:04)
[2019-02-13 03:26] LABS: Basophils # (auto) 0.1 uL; Eosinophils # (auto) 0.3 uL
[2019-02-13 03:28] LABS: Basophils % (auto) 0.8 % (0.0-2.0); Eosinophils % (auto) 2.9 % (0.0-7.0); Hematocrit 30.9 % (41.0-53.0); Hemoglobin 9.5 g/dL (13.5-17.5); Lymphocytes # (auto) 1.2 uL; Lymphocytes % (auto) 13.6 % (10.0-50.0); Mean Corpuscular Hemoglobin 22.7 pg (28.0-32.0); Mean Corpuscular Hgb Conc. 30.9 g/dL (32.0-36.0); Mean Corpuscular Volume 73.5 fL (80.0-100.0); Monocytes # (auto) 1.1 uL; Monocytes % (auto) 11.9 % (0.0-12.0); Neutrophils # (auto) 6.3 uL; Neutrophils % (auto) 70.8 % (37.0-80.0); Platelet Count (auto) 232 10^3/uL (140-450); Red Cell Distribution Width 19.2 % (11.8-14.3); White Blood Cell 8.9 10^3/uL (4.4-10.8)
[2019-02-13 03:42] LABS: Albumin 2.5 g/dL (3.4-5.0); Potassium 4.2 mmol/L (3.5-5.1)
[2019-02-13 03:46] LABS: BUN/Creatinine Ratio 21.4; Bilirubin, Total 0.6 mg/dL (0.2-1.0); Total Protein 7.1 g/dL (6.4-8.2)
[2019-02-13] MEDS: CEFEPIME HYDROCHLORIDE 2 GM in SODIUM CHL 0.9% 50 ML IV SCH ×3 (04:01→20:15)
--- NOTE | 2019-02-13 04:23 | NUR ---
CARES Bed bath given and oral care done. partial linen change, skin integrity assessed for any changes; none noted. Pt does not tolerate stimulation, bites the ET tube and high respirations noted; during this time pt does not receive adequate tidal volumes. Pt calms down when left alone and VSS. Cont care.
[2019-02-13] MEDS: hydrALAZINE HCL 10 MG TAB PO SCH ×3 (05:43→21:39)
--- NOTE | 2019-02-13 06:22 | NUR ---
RT NOTE: PT REFUSED TX AT THIS TIME STATING HE WILL WAIT FOR NEXT TX. NO SIGNS OF RESPIRATORY DISTRESS. LUNG SOUNDS CLEAR T/O. ON RA SPO2 94 HR 80 RR 16. PT IS SITTING IN CHAIR. PT HAS LEFT CHEST TUBE IN PLACE. WILL CONTINUE TO MONITOR. Addendum: 02/13/19 at 1326 by KARLA DALEY, RT RT NOTE WRITTEN ON WRONG PT
--- NOTE | 2019-02-13 06:44 | NUR ---
TEMPERATURE TEMP AT 97.0. WARMING MEASURES INITIATED NOW.
[2019-02-13] MEDS: InsuLIN REG 1unit/0.01ml Soln (100units/ml) SC SCH ×4 (06:45→21:39)
[2019-02-13] MEDS: ACCU-CHEK COMFORT CURVE STRIP VI SCH ×4 (06:45→21:39)
[2019-02-13] MEDS: MIDAZOLAM DRIP 50 mg/50mL 50 ML IV SCH ×5 (06:54→18:32)
[2019-02-13] MEDS: fentaNYL Drip 2500mCg/250mlNS 250 ML IV SCH ×2 (06:54→17:50)
--- NOTE | 2019-02-13 07:25 | NUR ---
TEMP REASSESS 97.8
--- NOTE | 2019-02-13 07:30 | NUR ---
ASSESS- PT. LYING IN BED ON VENT SIZE #7.5 ET, 24 AT THE LIP, AC-16, TV-550, PEEP-5, FIO2-30%. LUNGS CLEAR JARED. INSPIRATORY AND EXPIRATORY. PT. HAS HYPOACTIVE GAG/COUGH REFLEX. PUPILS 2 AND SLUGGISH JARED., REDDENED JARED. NO MOVEMENT OF EXTREMITIES SEEN. DOES NOT RESPOND TO ANY COMMANDS. RESPONDS TO DEEP PAINFUL/TACTILE STIMULI. ON VERSED GTT. AT 15 MG./HR., FENTANYL GTT. AT 200 MCG., PROPOFOL GTT. AT 40 MCG. PICC LT. UPPER ARM INTACT, TLC WITH DSG. D/I. RT. ARM IN CAST AND RT. LOWER LEG IN CAST. UNABLE TO PALPATE RT. RADIAL, UNDER CAST, FINGERS RT. HAND WARM TO TOUCH WITH BRISK CAPILLARY REFILL. RT. FOOT TOES WARM TO TOUCH WITH BRISK CAPILLARY REFILL. DORSALIS PEDAL PULSES STRONG, PALPABLE JARED. LT. RADIAL PULSE STRONG, PALPABLE. 1 PLUS EDEMA LT. ARM AND HAND. SCD LT. LE. OGT IN PLACE WITH GLUCERNA 1.2 AT 25 CC/HR. ABD. SOFT, LG. BOWEL SOUNDS ALL FOUR QUADRANTS. F/C TO GRAVITY WITH CLEAR LT. LEODAN URINE. LT. UPPER LATERAL ARM WITH SKIN TEAR, OPEN BLISTER WITH OPTIFOAM DSG. D/I. RECTAL TEMP 97.8.
[2019-02-13] MEDS: DOPamine 1600MCG/ML D5W 250 ML IV SCH ×2 (07:55→13:22)
[2019-02-13] MEDS: DexMEDEtomidine 400 MCG in D5W 5% 96 ML IV SCH ×2 (07:58→12:17)
--- NOTE | 2019-02-13 08:45 | NUR ---
Family updated on pt status Family of ELAINE KISER updated on patient's status and condition. All questions and concerns addressed. verbalized understanding. VISITING AT THE BS.
[2019-02-13] MEDS: VANCOMYCIN 1,500 MG in D5W 5% 250 ML IV SCH ×2 (08:47→18:32)
[2019-02-13] MEDS: FAMOTIDINE (10MG/ML) 2ML VL IV SCH (09:38)
[2019-02-13] MEDS: QUEtiapine FUMARATE 25 MG TAB PO SCH ×2 (09:38→21:36)
[2019-02-13] MEDS: ENOXAPARIN SOD 40 MG/0.4 ML SYRINGE SC SCH (09:38)
[2019-02-13] MEDS: ASPirin 81 mg TAB PO SCH (09:39)
[2019-02-13] MEDS: CARVEDILOL 12.5 MG TAB PO SCH ×2 (09:39→21:37)
[2019-02-13] MEDS: BENAZEPRIL HCL 10 MG TAB PO SCH (09:39)
[2019-02-13] MEDS: SODIUM CHLOR 0.9% PF (SALINE LOCK) 10ML VIAL/SYR IV SCH ×2 (09:39→22:00)
--- NOTE | 2019-02-13 09:45 | NUR ---
TEMP RECTALLY 99.2. TURNED ON COOLING BLANKET THAT IS UNDERNEATH PT. REMOVED BLANKET.
--- NOTE | 2019-02-13 09:50 | NUR ---
DR. BACA Provider/Hospitalist at bedside.
--- NOTE | 2019-02-13 10:00 | NUR ---
AUSCULTATED GOOD PLACEMENT WITH OGT. NO RESIDUAL FROM TF. NO EMESIS. INCREASED GLUCERNA 1.2 TO 35 CC/HR. WITH GOAL RATE OF 60 CC/HR.
--- NOTE | 2019-02-13 11:31 | NUR ---
Nutrition Follow-up Notes Wt.: 136.2 kg Pt was intubated sedated with propoofl @ 31.056 ml/hr providing 819 kcals from fats. pt is currently NPO with EN support with Glucerna @ 35 ml/hr providing 1008 kcals and 50 gm proteins. pt with inadequate EN support as it meets 68-74% kcals and 42-46% proteins. pt tolerating TF well per nursing Est. Needs ABW [id number] kcal (23-25 kcal/kgBW), 107-117 gms pro (1.0-1.1 gms/kgBW). Will continue to monitor pertinent labs and reassess nutrient need prn Labs: GLU 181 H, ALB 2.5 L. Skin: Bryant scale 11, high risk skin intact per documentation liaison. GI: Pt has no BM reported per documentation liaison. PES: Altered nutrition related lab values r/t acute/chronic medical condition aeb hyperglycemia, hypocalcemia, mod hypoalb decreased nutrient needs r/t adiposity aeb pt`s high BMI of 36.2 kgm2 Will continue to monitor NPO status, EN tolerance, skin status, pertinent labs and weight trend. F/u in 2-3 days. Rec.: 1.) Advance EN support with Glucerna @ 60 ml/hr per MD approval on current rate of propofol. 2) advance diet as medically feasible. 3) refer to CDE on DC. 4) continue current plan of care
[2019-02-13] MEDS: hydrALAZINE HCL 20 MG/ML VL IV PRN (11:50)
--- NOTE | 2019-02-13 11:50 | NUR ---
SBP 180-181. MED. PT. WITH HYDRALAZINE 20MG. IVP. MONITORING BP.
[2019-02-13] MEDS: FOLIC ACID 1 MG, MULTIPLE VITAMIN 10 ML, MAGNESIUM SULF SDV 50% 8 MEQ, THIAMINE INJ 100... INJ SCH ×5 (12:08)
--- NOTE | 2019-02-13 12:45 | NUR ---
SBP DECREASED TO THE 130'S. SR.
[2019-02-13] MEDS: Glucerna 1.2 Cal 1Liter BOTTLE GT SCH (13:15)
--- NOTE | 2019-02-13 13:15 | NUR ---
Family updated on pt status Family of ELAINE KISER updated on patient's status and condition. All questions and concerns addressed. verbalized understanding. VISITING AT THE BS.
[2019-02-13] MEDS: NOREPINEPHRINE 8 MG/250ML KIT 250 ML IV SCH (13:22)
--- NOTE | 2019-02-13 13:45 | NUR ---
PT. HAS HAD NO EMESIS. NO BM. 5CC RESIDUAL FROM OGT. TOLERATING TF.
--- NOTE | 2019-02-13 14:45 | NUR ---
CHANGED PICC LINE MAGDA UNDER STERILE TECHNIQUE ORDERED.
--- NOTE | 2019-02-13 15:00 | NUR ---
FAMILY VISITING AT THE .
--- NOTE | 2019-02-13 17:00 | NUR ---
DR. OSUNA Provider/Hospitalist at bedside. GAVE UPDATE ON PT. NEW ORDERS RECEIVED.
--- NOTE | 2019-02-13 17:01 | NUR ---
RT NOTE: PEEP INCREASED TO [address] MORRIS ORDERS. WILL CONTINUE TO MONITOR.
[2019-02-13] MEDS: FUROSEMIDE 40 MG/4 ML VIAL IV SCH (17:36)
--- NOTE | 2019-02-13 19:30 | NUR ---
Opening Shift Note Received patient on mechanical ventilator sedated on versed, propofol, and fentanyl. Pt does not open eyes to verbal stimuli or painful stimuli. Withdraws to deep pain. Hypoactive cough and gag noted. No secretions suctioned from ET tube. Thin white secretions suctioned orally. Pupils are 2 and sluggish with redness to eyes noted. OGT in place infusing glucerna at 25 ccs/hr, no residuals, will increase to goal rate of 60 ccs/hr as tolerated. Verified good placement of OGT. BS present in all four quadrants, abdomen Soft, large and slightly distended. Lopez cat. Right leg capillary refill <3 seconds and warm. Right fingers warm to touch, cap refill <3 seconds. Left arm and leg palpable strong pulses and warm to touch. No S/S of distress noted. All alarms on and audible. Bed locked in lowest position Pt in full view of RN. Will continue to monitor closely.
[2019-02-13] MEDS ORDERED: PROPOFOL 100 ML IV ONE (19:51)
[2019-02-13] MEDS: ATORVASTATIN 20 MG TAB PO SCH (21:37)
[2019-02-14] VITALS (97 sets, daily range): BP systolic 109–189; BP diastolic 51–103
--- NOTE | 2019-02-14 | NUR ---
RESIDUALS NO RESIDUALS OF TF ASPIRATED. PT TOLERATING WELL. TUBE FEEDING INCREASED TO 40 MLS AN HOUR. NO EMESIS. WILL CONTINUE TO MONITOR RESIDUALS AND.
[2019-02-14] MEDS: MIDAZOLAM DRIP 50 mg/50mL 50 ML IV SCH ×3 (00:35→23:03)
[2019-02-14] MEDS: ALBUTEROL SULF 2.5 MG/0.5ML(0.5%) NEB SOLN NEB SCH ×6 (02:16→21:34)
[2019-02-14] MEDS: IPRATROPIUM BROM 0.5 MG/2.5ML INH SOL NEB SCH ×6 (02:16→21:34)
--- NOTE | 2019-02-14 02:30 | NUR ---
PT BITING DOWN ON ET TUBE. RT AWARE AND PLACED BITE BLOCK. WILL CONTINUE CARE
[2019-02-14] MEDS: PROPOFOL 100 ML IV SCH ×5 (03:00→20:53)
[2019-02-14 04:02] LABS: Basophils # (auto) 0.1 uL; Hemoglobin 9.8 g/dL (13.5-17.5)
--- NOTE | 2019-02-14 04:04 | NUR ---
CARES FULL BATH AND FULL LINEN CHANGE PERFORMED AT THIS TIME. PT TOLERATED WELL. SKIN INTEGRITY ASSESSED FOR ANY CHANGES; NONE NOTED. NO BM.
[2019-02-14 04:05] LABS: Eosinophils # (auto) 0.2 uL; Eosinophils % (auto) 2.5 % (0.0-7.0); Hematocrit 32.1 % (41.0-53.0); Lymphocytes % (auto) 9.5 % (10.0-50.0); Mean Corpuscular Hemoglobin 22.7 pg (28.0-32.0); Mean Corpuscular Hgb Conc. 30.4 g/dL (32.0-36.0); Mean Corpuscular Volume 74.7 fL (80.0-100.0); Monocytes % (auto) 9.6 % (0.0-12.0); Neutrophils # (auto) 7.9 uL; Neutrophils % (auto) 77.4 % (37.0-80.0); Nucleated Red Blood Cells % 0.1 %; Platelet Count (auto) 256 10^3/uL (140-450); Red Cell Distribution Width 19.3 % (11.8-14.3); White Blood Cell 10.1 10^3/uL (4.4-10.8)
[2019-02-14] MEDS: CEFEPIME HYDROCHLORIDE 2 GM in SODIUM CHL 0.9% 50 ML IV SCH ×3 (04:16→20:06)
[2019-02-14 04:18] LABS: Albumin 2.5 g/dL (3.4-5.0)
[2019-02-14 04:21] LABS: BUN/Creatinine Ratio 19.2; Bilirubin, Total 0.5 mg/dL (0.2-1.0); Total Protein 7.2 g/dL (6.4-8.2)
[2019-02-14] MEDS: VANCOMYCIN 1,500 MG in D5W 5% 250 ML IV SCH ×2 (05:13→15:33)
[2019-02-14] MEDS: hydrALAZINE HCL 10 MG TAB PO SCH ×3 (05:48→22:14)
[2019-02-14] MEDS: FUROSEMIDE 40 MG/4 ML VIAL IV SCH ×2 (05:48→18:35)
[2019-02-14] MEDS: OXYCODONE HCL 5MG TAB PO SCH ×4 (05:49→18:36)
[2019-02-14] MEDS: InsuLIN REG 1unit/0.01ml Soln (100units/ml) SC SCH ×4 (06:11→22:15)
[2019-02-14] MEDS: ACCU-CHEK COMFORT CURVE STRIP VI SCH ×4 (06:12→22:15)
--- NOTE | 2019-02-14 07:10 | NUR ---
OPENING NOTE REPORT RECEIVED AND CARE ASSUMED FROM KARLA PIPER
--- NOTE | 2019-02-14 07:35 | NUR ---
REPORT GIVEN TO DAY SHIFT RN
--- NOTE | 2019-02-14 08:30 | NUR ---
ET TUBE ADVANCED 3MM PER RADIOLOGY RECOMMENDATION. ET TUBE NOW 27@LIP Addendum: 02/14/19 at 0915 by SAMMI GORDON RN RN DONE AT 0845
--- NOTE | 2019-02-14 08:44 | NUR ---
RT AT BEDSIDE FOR ADVANCEMENT OF ET TUBE RECOMMENDED BY RADIOLOGY D/T CXR. COARSE LUNG SOUNDS AUSCULTATED AND RT NOTIFIED OF FINDING.
--- NOTE | 2019-02-14 08:50 | NUR ---
AT BEDSIDE UPDATED ON PT STATUS. NO FURTHER QUESTIONS OR CONCERNS AT THIS TIME
[2019-02-14] MEDS: ASPirin 81 mg TAB PO SCH (10:03)
[2019-02-14] MEDS: CARVEDILOL 12.5 MG TAB PO SCH ×2 (10:04→22:15)
[2019-02-14] MEDS: ENOXAPARIN SOD 40 MG/0.4 ML SYRINGE SC SCH (10:04)
[2019-02-14] MEDS: FAMOTIDINE (10MG/ML) 2ML VL IV SCH (10:04)
[2019-02-14] MEDS: QUEtiapine FUMARATE 25 MG TAB PO SCH ×2 (10:05→22:14)
[2019-02-14] MEDS: BENAZEPRIL HCL 10 MG TAB PO SCH (10:06)
[2019-02-14] MEDS: SODIUM CHLOR 0.9% PF (SALINE LOCK) 10ML VIAL/SYR IV SCH ×2 (10:06→22:15)
[2019-02-14] MEDS: DOPamine 1600MCG/ML D5W 250 ML IV SCH ×2 (10:23→20:53)
--- NOTE | 2019-02-14 11:30 | NUR ---
DR. MOTA AT BEDSIDE NO NEW ORDERS AT THIS TIME
[2019-02-14] MEDS: DexMEDEtomidine 400 MCG in D5W 5% 96 ML IV SCH (12:17)
[2019-02-14] MEDS: FOLIC ACID 1 MG, MULTIPLE VITAMIN 10 ML, MAGNESIUM SULF SDV 50% 8 MEQ, THIAMINE INJ 100... INJ SCH ×5 (12:56)
--- NOTE | 2019-02-14 14:21 | NUR ---
Respiratory note: VENT MODE CHANGED TO SIMV, RATE DECREASED TO 12, PEEP DECREASED TO 6, AND VT INCREASED TO [address] MEREDITH'S ORDER. ALL CHANGES MADE AT THIS TIME. VERONIQUE LYONS MADE AWARE OF ALL CHANGES.
--- NOTE | 2019-02-14 17:00 | NUR ---
DR. BACA AT BEDSIDE NO NEW ORDERS AT THIS TIME
[2019-02-14] MEDS: fentaNYL Drip 2500mCg/250mlNS 250 ML IV SCH (18:51)
[2019-02-14] MEDS: Glucerna 1.2 Cal 1Liter BOTTLE GT SCH (18:54)
--- NOTE | 2019-02-14 19:00 | NUR ---
OPENING NOTE ASSUMED CARE OF PATIENT AT THIS TIME. REPORT RECEIVED FROM DAY SHIFT RN. POC REVIEWED. HEAD TO TOE ASSESSMENT COMPLETE, SEE INTERVENTION SPREADSHEET FOR COMPLETE DETAILS. RECEIVED PT SEDATED AND VENTILATED. RECEIVED PT ON COOLING BLANKET. CURRENT TEMP 99.2 WITH RECTAL TEMP MONITORING. VSS WITH THE EXCEPTION OF BP SBP 160'S AT THIS TIME. IV SITE BENIGN. F/C DRAINING TO GRAVITY. RECEIVED PT WITH CAST ON RIGHT ARM AND RIGHT LEG. SUCTION AND BVM AT BEDSIDE. BED LOCKED AND IN LOWEST POSITION, SAFETY PRECAUTIONS IN PLACE. WILL MONITOR PT CAREFULLY.
--- NOTE | 2019-02-14 19:20 | NUR ---
CLOSING NOTE REPORT GIVEN AND CARE ENDORSED TO ADALBERTO PIPER
--- NOTE | 2019-02-14 20:00 | NUR ---
RESIDUALS 20 MLS OF BLACK LIQUID ASPIRATED FROM OGT. TF RESUMED AT 4 MLS/HR AT THIS TIME.
[2019-02-14] MEDS: NOREPINEPHRINE 8 MG/250ML KIT 250 ML IV SCH (20:23)
--- NOTE | 2019-02-14 20:58 | NUR ---
SISTER OF PT CALLED FOR UPDATE. PW PROVIDED. ALL QUESTIONS AND CONCERNS ADDRESSED AT THIS TIME.
[2019-02-14] MEDS: ATORVASTATIN 20 MG TAB PO SCH (22:14)
--- NOTE | 2019-02-14 22:59 | NUR ---
TEMP 98.6, COOLING BLANKET SET TO MONITOR ONLY AT THIS TIME.
[2019-02-15] VITALS (104 sets, daily range): BP systolic 140–223; BP diastolic 65–120
[2019-02-15] MEDS: OXYCODONE HCL 5MG TAB PO SCH ×2 (00:08→05:30)
--- NOTE | 2019-02-15 00:10 | NUR ---
RESIDUALS 0 MLS ASPIRATED FROM OGT AT THIS TIME. CONTINUE TF AT 45 MLS/HR.
--- NOTE | 2019-02-15 00:13 | NUR ---
SEDATION VACATION SLOWLY TITRATING MEDS TO ASSESS PATIENT TOLERANCE. PER DAY SHIFT REPORT MD WANTS SLOW WITHDRAWAL OF SEDATION. Addendum: 02/15/19 at 0014 by ADALBERTO GREGORY RN Amended: Links added.
[2019-02-15] MEDS: VANCOMYCIN 1,500 MG in D5W 5% 250 ML IV SCH ×3 (00:56→21:51)
[2019-02-15] MEDS: PROPOFOL 100 ML IV SCH ×3 (01:00→22:09)
[2019-02-15] MEDS: IPRATROPIUM BROM 0.5 MG/2.5ML INH SOL NEB SCH ×6 (01:21→22:53)
[2019-02-15] MEDS: ALBUTEROL SULF 2.5 MG/0.5ML(0.5%) NEB SOLN NEB SCH ×6 (01:21→22:53)
[2019-02-15 03:53] LABS: Eosinophils # (auto) 0.2 uL
[2019-02-15 03:57] LABS: Basophils # (auto) 0.2 uL; Basophils % (auto) 1.3 % (0.0-2.0); Eosinophils % (auto) 2.1 % (0.0-7.0); Hematocrit 29.6 % (41.0-53.0); Hemoglobin 9.2 g/dL (13.5-17.5); Lymphocytes # (auto) 1.5 uL; Lymphocytes % (auto) 12.4 % (10.0-50.0); Mean Corpuscular Hemoglobin 22.6 pg (28.0-32.0); Mean Corpuscular Hgb Conc. 30.9 g/dL (32.0-36.0); Mean Corpuscular Volume 73.1 fL (80.0-100.0); Monocytes # (auto) 1.1 uL; Monocytes % (auto) 9.1 % (0.0-12.0); Neutrophils # (auto) 8.9 uL; Neutrophils % (auto) 75.1 % (37.0-80.0); Platelet Count (auto) 263 10^3/uL (140-450); Red Blood Cells 4.05 10^6/uL (4.5-5.90); Red Cell Distribution Width 19.3 % (11.8-14.3); White Blood Cell 11.9 10^3/uL (4.4-10.8)
--- NOTE | 2019-02-15 04:00 | NUR ---
RESIDUALS 50 MLS ASPIRATED AT THIS TIME. OGT FLUSHED AND CLAMPED AT THIS TIME. WILL REASSESS.
[2019-02-15] MEDS: CEFEPIME HYDROCHLORIDE 2 GM in SODIUM CHL 0.9% 50 ML IV SCH ×3 (04:02→20:41)
[2019-02-15] MEDS: DexMEDEtomidine 400 MCG in D5W 5% 96 ML IV SCH (04:11)
[2019-02-15 04:19] LABS: Albumin 2.3 g/dL (3.4-5.0); Anion Gap 8 (5-15); Blood Urea Nitrogen 13 mg/dL (7-18); Calcium 8.4 mg/dL (8.5-10.1); Carbon Dioxide 25 mmol/L (21-32); Chloride 107 mmol/L (98-107); Glucose 225 mg/dL (74-106); Potassium 3.8 mmol/L (3.5-5.1); Sodium 140 mmol/L (136-145)
[2019-02-15 04:21] LABS: Alanine Aminotransferase 54 U/L (16-61); Aspartate Aminotransferase 39 U/L (15-37); BUN/Creatinine Ratio 18.8; GFR African American 150 mL/min; GFR Non-African American 124 mL/min
[2019-02-15 04:23] LABS: Alkaline Phosphatase 76 U/L (45-117); Bilirubin, Total 0.5 mg/dL (0.2-1.0)
--- NOTE | 2019-02-15 05:08 | NUR ---
BATHING/LINEN CHANGE PT GIVEN CHG BATH. DRAW SHEET AND CHUCKS CHANGED. SKIN INTEGRITY REMAINS INTACT. PT DESATS TO 89% WHEN TURNED AND REPOSITIONED AT THIS TIME. SUCTION TUBING AND CANISTER CHANGED AT THIS TIME. PT REPOSITIONED FOR SAFETY AND COMFORT. WILL CONTINUE WITH CARE.
[2019-02-15] MEDS: FUROSEMIDE 40 MG/4 ML VIAL IV SCH ×2 (05:29→18:28)
[2019-02-15] MEDS: hydrALAZINE HCL 10 MG TAB PO SCH (05:30)
--- NOTE | 2019-02-15 06:00 | NUR ---
DESATING PT HAVING EPISODES OF DESATURATION. LOWEST NOTED 84%. PT SUCTIONED AND O2 RESUMES 91-92%. PT HAS LARGE AMOUNTS OF ELIZABETH CHUNKY AND THICK SECRETIONS.
[2019-02-15] MEDS: ACCU-CHEK COMFORT CURVE STRIP VI SCH ×4 (06:31→22:08)
[2019-02-15] MEDS: InsuLIN REG 1unit/0.01ml Soln (100units/ml) SC SCH ×4 (06:34→22:23)
[2019-02-15] MEDS: DOPamine 1600MCG/ML D5W 250 ML IV SCH ×2 (07:23→17:53)
--- NOTE | 2019-02-15 07:30 | NUR ---
DR BACA AT BEDSIDE DISCUSSED PLAN OF CARE
[2019-02-15] MEDS: hydrALAZINE HCL 20 MG/ML VL IV PRN ×3 (08:00→21:48)
--- NOTE | 2019-02-15 08:00 | NUR ---
ELEVATED BLOOD PRESSURE PATIENTS PRN ADMINISTER ORDERED, SEE MAR. PATIENT WITHIN VIEW OF NURSES STATION. WILL CONTINUE TO MONITOR CLOSELY
--- NOTE | 2019-02-15 08:43 | NUR ---
DR MEREDITH AT BEDSIDE UPDATED ON STATUS, DISCUSSED PLAN OF CARE WITH PATIENTS , NEW ORDERS RECEIVED
--- NOTE | 2019-02-15 08:50 | NUR ---
Respiratory note: VENT SETTINGS CHANGED PER DR MEREDITH. PT IS NOW ON SIMV 10, 650, +5, PS 8. NO FOLLOW UP ABG ORDERED AT THIS TIME.
[2019-02-15] MEDS ORDERED: LACTULOSE 20Gm/30ML SOLN PO PRN (09:45)
[2019-02-15] MEDS ORDERED: hydrALAZINE HCL 20 MG/ML VL IV PRN (09:45)
[2019-02-15] MEDS: SODIUM CHLOR 0.9% PF (SALINE LOCK) 10ML VIAL/SYR IV SCH ×2 (10:00→20:47)
[2019-02-15] MEDS: fentaNYL Drip 2500mCg/250mlNS 250 ML IV SCH (10:24)
--- NOTE | 2019-02-15 10:30 | NUR ---
TUBE FEEDING RESIDUALS TUBE FEEDING RATE 45ML/HR, RESIDUALS OF 50MLS AFTER 1 HOUR. FEEDINGS STOPPED. WILL REASSESS.
[2019-02-15] MEDS: ENOXAPARIN SOD 40 MG/0.4 ML SYRINGE SC SCH (10:50)
[2019-02-15] MEDS: FAMOTIDINE (10MG/ML) 2ML VL IV SCH (10:51)
[2019-02-15] MEDS: methylPREDNISolone SOD SUCC 40 MG/ML VL IV SCH ×2 (10:51→20:47)
[2019-02-15] MEDS: ASPirin 81 mg TAB PO SCH (10:53)
[2019-02-15] MEDS: BENAZEPRIL HCL 10 MG TAB PO SCH ×2 (10:53→20:45)
[2019-02-15] MEDS: CARVEDILOL 12.5 MG TAB PO SCH ×2 (10:54→20:47)
[2019-02-15] MEDS: FLUCONAZOLE 200MG/100ML 100 ML IV SCH ×2 (10:55→22:35)
[2019-02-15] MEDS: FOLIC ACID 1 MG, MULTIPLE VITAMIN 10 ML, MAGNESIUM SULF SDV 50% 8 MEQ, THIAMINE INJ 100... INJ SCH ×5 (12:15)
--- NOTE | 2019-02-15 12:43 | NUR ---
Nutrition Follow-up Notes Wt.: 137.8 kg today. Pt's intubated, sedated with Propofol @ 15.528 ml/hr providing 410 kcal from Fat. Pt's currently NPO with EN support with Glucerna 1.2 Elías @ 45 ml/hr providing 1296 kcal, 65 gms protein and 869 ml free water, tolerates feeding well, had 5 ml residuals noted by RN this morning. Pt with inadequate EN support d/t mod initiation rate delivery of concentrated formula aeb current EN infusion meets 64% of est caloric needs (with Propofol on board) and 56% to 61% of est protein needs. Est. Needs ABW [id number] kcal (23-25 kcal/kgBW), 107-117 gms pro (1.0-1.1 gms/kgBW). Will continue to monitor pertinent labs and reassess nutrient need prn Labs: Gluc 225 H, Ca 8.4 L, Cr 0.69 L, AST 39 H, Alb 2.3 L. Skin: Bryant scale 12, high risk, pt's right upper posterior sacrum skin tear, open blisters per mc kay stitcher. Pls refer to heel sprayer's notes 02/12/19 for further details re: tx plans. GI: Pt has no bowel activity since 02/04/19 per mc kay stitcher. PES: Altered nutrition related lab values r/t acute/chronic medical condition aeb hyperglycemia, hypocalcemia, mod hypoalb decreased nutrient needs r/t adiposity aeb pt`s high BMI of 36.2 kgm2 Will continue to monitor NPO status, EN tolerance, skin status, pertinent labs and weight trend. F/u in 2 to 3 days. Rec.: 1.) If still NPO with EN support, consider gradual increase on feeding rate of Glucerna 1.2 Elías to 70 ml/hr per as tolerated while on current rate of Propofol if medically appropriate. 3.) If Albumin level continues trending down, consider Prostat 1 pkt BID. 3.) Consider daily MVI with minerals and Asc acid 500 mgs BID. 4.) Advance gradually to oral diet when medically feasible. 5.) Refer to CDE/RD for further nutrition education and weight monitoring upon discharged. 6.) Continue current plan of care.
--- NOTE | 2019-02-15 12:45 | NUR ---
ELEVATED BP SBP 190S, WILL ADMINISTER PRN ORDERED
[2019-02-15] MEDS: METOPROLOL TARTRATE 1MG/1ML-5ML VIAL IV PRN ×2 (12:50→18:40)
[2019-02-15] MEDS ORDERED: hydrALAZINE HCL 10 MG TAB PO SCH (14:00)
[2019-02-15] MEDS: hydrALAZINE HCL 25 MG TAB PO SCH ×2 (14:22→20:46)
[2019-02-15] MEDS: MIDAZOLAM DRIP 50 mg/50mL 50 ML IV SCH (14:25)
[2019-02-15] MEDS: NOREPINEPHRINE 8 MG/250ML KIT 250 ML IV SCH (18:26)
[2019-02-15] MEDS: ARTIFICIAL TEARS 15ml EACHEYE PRN (18:39)
[2019-02-15] MEDS: ATORVASTATIN 20 MG TAB PO SCH (20:45)
--- NOTE | 2019-02-15 21:07 | NUR ---
Received a call from Juana (pt's sister) updated on status after obtaining a password.
--- NOTE | 2019-02-15 21:49 | NUR ---
BP 196/97, HR 85, HYDRALAZINE 10 MG IV GIVEN ORDERED PRN. WILL CONTINUE TO MONITOR VS.
--- NOTE | 2019-02-15 23:55 | NUR ---
PAGED DR. IGNACIO'S EXCHANGE TO UPDATE ON PT'S STATUS RE: PERSISTENTLY HIGH BP, SBP 190'S TO 200'S INCREASING TEMP. 100.2
[2019-02-16] VITALS (98 sets, daily range): BP systolic 94–220; BP diastolic 45–128
--- NOTE | 2019-02-16 00:03 | NUR ---
DR. CORTEZ CALLED BACK, UPDATED ON PT'S STATUS WITH NEW ORDER TO GIVE LABETALOL 10MG IV NOW THEN Q 6H IV PRN AND CONTINUE WITH TITRATION OF SEDATION. WILL CARRY OUT AN ORDER.
[2019-02-16] MEDS ORDERED: LABETALOL HCL 5 MG/ML ML 20ML VIAL IV ONE ×2 (00:13→00:30)
[2019-02-16] MEDS ORDERED: LABETALOL HCL 5 MG/ML ML 20ML VIAL IV PRN ×3 (00:15→09:45)
[2019-02-16] MEDS: fentaNYL Drip 2500mCg/250mlNS 250 ML IV SCH (00:17)
--- NOTE | 2019-02-16 01:45 | NUR ---
BP 232/99, SEDATION WITH FENTANYL INCREASED TO 150 MCG/HR, PROPOFOL @ 30 MCG/KG/MIN. WILL START PRECEDEX DRIP
[2019-02-16] MEDS: ALBUTEROL SULF 2.5 MG/0.5ML(0.5%) NEB SOLN NEB SCH ×6 (02:00→22:41)
[2019-02-16] MEDS: IPRATROPIUM BROM 0.5 MG/2.5ML INH SOL NEB SCH ×6 (02:00→22:41)
[2019-02-16] MEDS: DexMEDEtomidine 400 MCG in D5W 5% 96 ML IV SCH (02:07)
--- NOTE | 2019-02-16 02:08 | NUR ---
PRECEDEX DRIP STARTED @ 0.2 MCG/KG/HR BP 197/103, HR 95.
[2019-02-16] MEDS: METOPROLOL TARTRATE 1MG/1ML-5ML VIAL IV PRN ×2 (02:15→21:22)
--- NOTE | 2019-02-16 03:00 | NUR ---
Patient bathe/linen change Patient given complete bath. Skin integrity assessed for any changes. Linens changed. Sacral optifoam changed. Patient repositioned for comfort.
[2019-02-16] MEDS: CEFEPIME HYDROCHLORIDE 2 GM in SODIUM CHL 0.9% 50 ML IV SCH ×3 (03:17→21:20)
[2019-02-16 04:10] LABS: Basophils # (auto) 0.1 uL; Eosinophils # (auto) 0 uL; Mean Corpuscular Hemoglobin 22.1 pg (28.0-32.0); Mean Corpuscular Hgb Conc. 30.4 g/dL (32.0-36.0); Monocytes # (auto) 0.4 uL; Neutrophils % (auto) 90.7 % (37.0-80.0)
[2019-02-16 04:14] LABS: Basophils % (auto) 0.7 % (0.0-2.0); Hematocrit 32.8 % (41.0-53.0); Lymphocytes # (auto) 0.9 uL; Lymphocytes % (auto) 5.8 % (10.0-50.0); Mean Corpuscular Volume 72.5 fL (80.0-100.0); Monocytes % (auto) 2.8 % (0.0-12.0); Neutrophils # (auto) 13.5 uL; Platelet Count (auto) 363 10^3/uL (140-450); Red Blood Cells 4.52 10^6/uL (4.5-5.90); White Blood Cell 14.8 10^3/uL (4.4-10.8)
[2019-02-16] MEDS: DOPamine 1600MCG/ML D5W 250 ML IV SCH (04:23)
[2019-02-16 04:24] LABS: Albumin 2.7 g/dL (3.4-5.0); Calcium 9.2 mg/dL (8.5-10.1); Potassium 3.9 mmol/L (3.5-5.1)
[2019-02-16 04:28] LABS: BUN/Creatinine Ratio 33.3; Bilirubin, Total 0.5 mg/dL (0.2-1.0)
[2019-02-16] MEDS: hydrALAZINE HCL 20 MG/ML VL IV PRN (04:56)
[2019-02-16] MEDS: ACCU-CHEK COMFORT CURVE STRIP VI SCH ×4 (05:51→22:00)
[2019-02-16] MEDS: InsuLIN REG 1unit/0.01ml Soln (100units/ml) SC SCH ×4 (05:51→22:41)
[2019-02-16] MEDS: hydrALAZINE HCL 25 MG TAB PO SCH ×3 (05:52→22:00)
[2019-02-16] MEDS: FUROSEMIDE 40 MG/4 ML VIAL IV SCH ×2 (05:52→17:37)
[2019-02-16] MEDS: VANCOMYCIN 1,500 MG in D5W 5% 250 ML IV SCH ×2 (05:55→17:38)
--- NOTE | 2019-02-16 06:48 | NUR ---
CLOSING NOTES STILL ON SIMV MODE, OGT IN PLACE, SEDATION WITH PRECEDEX AND FENTANYL DRIP, SEE SPREADSHEET FOR FLOW RATES. LATEST VS: BP 126/58, HR 72, SAT 99%, TEMP 99.4.
--- NOTE | 2019-02-16 07:30 | NUR ---
RECEIVED REPORT PATIENT ON MECHANICAL VENTILATOR, ON FENTANYL AND PRECEDEX DRIP. PATIENT ABLE TO RESPOND TO VOICE, OPENING AND CLOSING EYES WHEN ASKED, UPPER AND LOWER EXTREMITIES TO WEAK TO MOVE. WILL CONTINUE TO MONITOR CLOSELY AND PREPARE FOR CPAP TRIAL WHEN PATIENT IS READY
--- NOTE | 2019-02-16 07:54 | NUR ---
PATIENTS RAMANA AT BEDSIDE UPDATED ON STATUS AND PLAN OF CARE
--- NOTE | 2019-02-16 08:07 | NUR ---
DR BACA AT BEDSIDE UPDATED ON STATUS THROUGHOUT THE NIGHT
--- NOTE | 2019-02-16 09:05 | NUR ---
DR MEREDITH AT BEDSIDE NEW ORDERS RECEIVED
[2019-02-16] MEDS: BENAZEPRIL HCL 10 MG TAB PO SCH ×2 (10:00→22:00)
[2019-02-16] MEDS: ASPirin 81 mg TAB PO SCH (10:00)
--- NOTE | 2019-02-16 10:05 | NUR ---
CPAP TRIAL INITIATED BY RESPIRATORY THERAPIST PATIENTS VITALS STABLE
[2019-02-16] MEDS: methylPREDNISolone SOD SUCC 40 MG/ML VL IV SCH ×2 (10:14→22:06)
[2019-02-16] MEDS: FAMOTIDINE (10MG/ML) 2ML VL IV SCH (10:14)
[2019-02-16] MEDS: FLUCONAZOLE 200MG/100ML 100 ML IV SCH ×2 (10:15→22:03)
[2019-02-16] MEDS: ENOXAPARIN SOD 40 MG/0.4 ML SYRINGE SC SCH (10:15)
[2019-02-16] MEDS: SODIUM CHLOR 0.9% PF (SALINE LOCK) 10ML VIAL/SYR IV SCH ×2 (10:23→22:06)
[2019-02-16] MEDS: CARVEDILOL 12.5 MG TAB PO SCH ×2 (10:34→22:00)
--- NOTE | 2019-02-16 10:46 | NUR ---
PAGED DR MEREDITH THROUGH HIS OFFICE STAFF TO INFORM ABG RESULTS AFTER CPAP. AWAITING RETURN CALL
--- NOTE | 2019-02-16 10:55 | NUR ---
PATIENT EXTUBATED RECEIVED ORDERS TO EXTUBATE FROM DR MEREDITH. PATIENT EXTUBATED AND PLACED ON COOL MIST AEROSOL MASK. VITALS STABLE. AT BEDSIDE. EDUCATED PATIENT IMPORTANCE OF WERAING MASK AND NOT TALKING AT THIS TIME. PATIENT NODDED YES IN UNDERSTANDING
[2019-02-16] MEDS: METOCLOPRAMIDE HCL 5MG/ml INJ 2ml VIAL IV SCH ×2 (12:01→17:37)
[2019-02-16] MEDS: FOLIC ACID 1 MG, MULTIPLE VITAMIN 10 ML, MAGNESIUM SULF SDV 50% 8 MEQ, THIAMINE INJ 100... INJ SCH ×5 (12:30)
--- NOTE | 2019-02-16 18:00 | NUR ---
PLACED PATIENT ON 4L NASAL CANNULA PATIENTS OXYGEN SATURATION REMAINS STABLE 90-94%. RESPIRATORY AT BEDSIDE FOR BREATHING TREATMENT. WILL CONTINUE TO MONITOR CLOSELY
[2019-02-16] MEDS: NOREPINEPHRINE 8 MG/250ML KIT 250 ML IV SCH (18:26)
--- NOTE | 2019-02-16 20:00 | NUR ---
ASSESSMENT: ALERT AND ORIENTED TO NAME, RECOGNIZES AND CARRIES CONVERSATION WITH HER, PT. IS DISORIENTED AND INSIST ON GOING HOME, REASSURED AND REORIENTED. PUPILS 4+ BILAT. ABLE TO WIGLE RIGHT FINGERS, RIGHT TOES, AND STATES CAN FEEL FINGERS AND TOES WHEN TOUCHED. CAST PRESENT TO RIGHT ARM AND RLE. EDEMA TO ALL EXTREMITIES 2+. METAL PRODUCTS VIEWER SHOWS SINUS TACH 100'S, SBP 150'S. SATS 95% ON 4L/NC. STRONG PRODUCTIVE COUGH OF THIN, WHITE SECRETIONS. ABDOMEN - LARGE, SOFT (+) B.S. ORAL CARE PROVIDED. SKIN - INTACT EXCEPT FOR BLISTER TO BACK OF RIGHT UPPER ARM. OPTIFOAM IN PLACE. EYES RED BILAT. NO DRAINAGE, ARTIFICIAL TEARS APPLIED. REPOSITIONED RIGHT WITH X3 ASSIST.
--- NOTE | 2019-02-16 21:06 | NUR ---
CALL RECEIVED FROM PT'S SISTER MALIK, PASSWORD RECEIVED. UPDATED ON CURRENT STATUS.
[2019-02-16] MEDS: ARTIFICIAL TEARS 15ml EACHEYE PRN (21:15)
[2019-02-16] MEDS: ATORVASTATIN 20 MG TAB PO SCH (22:00)
--- NOTE | 2019-02-16 22:15 | NUR ---
PT. REMAINS NPO AT THIS TIME, S/P EXTUBATION THIS P.M. ICE CHIPS PROVIDED AND COUGH INCREASES, CLEARING THROAT FREQUENTLY. WILL HOLD P.O MEDS TONIGHT AND WAIT FOR SWALLOW EVAL IN A.M.
[2019-02-17] VITALS (62 sets, daily range): BP systolic 100–178; BP diastolic 51–114
[2019-02-17] MEDS ORDERED: ACETAMINOPHEN 650 MG RECT SUPP PR ONE (01:30)
--- NOTE | 2019-02-17 01:30 | NUR ---
SPOKE TO DR. COTREZ COVERING FOR DR. IGNACIO REGARDING PATIENT'S C/O PAIN TO RIGHT ARM WHERE FX IS. INQUIRED ABOUT GETTING TORADOL FOR PAIN, BUN/CREAT VALUES GIVEN, DECLINES. ORDER FOR TYLENOL SUPPOSITORY RECEIVED, WILL PROVIDE.
[2019-02-17] MEDS: VANCOMYCIN 1,500 MG in D5W 5% 250 ML IV SCH (02:30)
[2019-02-17] MEDS: METOCLOPRAMIDE HCL 5MG/ml INJ 2ml VIAL IV SCH ×5 (02:34→23:36)
--- NOTE | 2019-02-17 02:41 | NUR ---
PICC LINE TO MAGDA EDEMATOUS AROUND INSERTION AREA. BLOOD RETURN (+) TO ALL PORTS. NO REDNESS OR HEAT.
--- NOTE | 2019-02-17 03:00 | NUR ---
FREQUENTLY ASKING TO BE REPOSITIONED, STATES IS VERY UNCOMFORTABLE. ICE PAD TO RIGHT BACK PAIN.
[2019-02-17] MEDS: hydrALAZINE HCL 20 MG/ML VL IV PRN (04:10)
[2019-02-17] MEDS: IPRATROPIUM BROM 0.5 MG/2.5ML INH SOL NEB SCH ×6 (04:15→22:11)
[2019-02-17] MEDS: ALBUTEROL SULF 2.5 MG/0.5ML(0.5%) NEB SOLN NEB SCH ×6 (04:15→22:11)
[2019-02-17 04:16] LABS: Basophils # (auto) 0.1 uL; Eosinophils # (auto) 0 uL; Mean Corpuscular Hgb Conc. 30.3 g/dL (32.0-36.0); Neutrophils # (auto) 18.5 uL
[2019-02-17 04:17] LABS: Basophils % (auto) 0.6 % (0.0-2.0); Hematocrit 30.1 % (41.0-53.0); Hemoglobin 9.1 g/dL (13.5-17.5); Lymphocytes % (auto) 4.8 % (10.0-50.0); Mean Corpuscular Hemoglobin 22.2 pg (28.0-32.0); Mean Corpuscular Volume 73.4 fL (80.0-100.0); Monocytes # (auto) 0.3 uL; Monocytes % (auto) 1.8 % (0.0-12.0); Neutrophils % (auto) 92.8 % (37.0-80.0); Platelet Count (auto) 315 10^3/uL (140-450); Red Blood Cells 4.11 10^6/uL (4.5-5.90); Red Cell Distribution Width 19.6 % (11.8-14.3); White Blood Cell 19.9 10^3/uL (4.4-10.8)
[2019-02-17] MEDS: CEFEPIME HYDROCHLORIDE 2 GM in SODIUM CHL 0.9% 50 ML IV SCH ×3 (04:26→20:41)
[2019-02-17 04:44] LABS: Alanine Aminotransferase 57 U/L (16-61); Albumin 2.6 g/dL (3.4-5.0); Anion Gap 28 (5-15); Aspartate Aminotransferase 59 U/L (15-37); BUN/Creatinine Ratio 32.3; Blood Urea Nitrogen 32 mg/dL (7-18); Chloride 108 mmol/L (98-107); GFR African American 99 mL/min; GFR Non-African American 82 mL/min; Glucose 245 mg/dL (74-106); Potassium 3.5 mmol/L (3.5-5.1); Sodium 141 mmol/L (136-145)
[2019-02-17 04:46] LABS: Alkaline Phosphatase 81 U/L (45-117); Bilirubin, Total 0.6 mg/dL (0.2-1.0)
[2019-02-17 05:00] LABS: Carbon Dioxide 5 mmol/L (21-32)
--- NOTE | 2019-02-17 05:42 | NUR ---
CRITICAL LAB - CALL RECEIVED FROM LUIS ARMANDO BAUER ON CHEMISTRY 5. DISCUSSED WITH Laya, WILL DO SHENG
[2019-02-17] MEDS: ACCU-CHEK COMFORT CURVE STRIP VI SCH ×4 (05:51→22:00)
[2019-02-17] MEDS: hydrALAZINE HCL 25 MG TAB PO SCH ×3 (06:00→23:37)
--- NOTE | 2019-02-17 06:10 | NUR ---
ABG - PCO2 30
[2019-02-17] MEDS: FUROSEMIDE 40 MG/4 ML VIAL IV SCH (06:21)
[2019-02-17] MEDS: METOPROLOL TARTRATE 1MG/1ML-5ML VIAL IV PRN (06:21)
[2019-02-17] MEDS: InsuLIN REG 1unit/0.01ml Soln (100units/ml) SC SCH ×4 (06:27→22:00)
--- NOTE | 2019-02-17 07:15 | NUR ---
REPORT GIVEN TO IRLANDA PIPER
[2019-02-17] MEDS: BENAZEPRIL HCL 10 MG TAB PO SCH ×3 (10:00→20:43)
[2019-02-17] MEDS: CARVEDILOL 12.5 MG TAB PO SCH ×3 (10:00→20:42)
[2019-02-17] MEDS: ASPirin 81 mg TAB PO SCH ×2 (10:00→11:56)
[2019-02-17] MEDS ORDERED: FLEET ENEMA(ADULT) 135 ML PR SCH (10:00)
[2019-02-17 10:02] LABS: Anion Gap 10 (5-15); BUN/Creatinine Ratio 37.8; Blood Urea Nitrogen 34 mg/dL (7-18); Carbon Dioxide 23 mmol/L (21-32); Chloride 109 mmol/L (98-107); GFR African American 111 mL/min; GFR Non-African American 91 mL/min; Glucose 190 mg/dL (74-106); Potassium 3.3 mmol/L (3.5-5.1); Sodium 142 mmol/L (136-145)
[2019-02-17 10:33] LABS: Calcium 9.3 mg/dL (8.5-10.1)
[2019-02-17] MEDS: MORPHINE SULF INJ 2 MG/ML SYRINGE 1ML IV PRN ×3 (10:55→23:43)
[2019-02-17] MEDS: SODIUM CHLOR 0.9% PF (SALINE LOCK) 10ML VIAL/SYR IV SCH ×2 (10:55→22:00)
[2019-02-17] MEDS: methylPREDNISolone SOD SUCC 40 MG/ML VL IV SCH ×2 (10:55→23:36)
[2019-02-17] MEDS: FLUCONAZOLE 200MG/100ML 100 ML IV SCH ×2 (10:59→20:41)
[2019-02-17] MEDS: ENOXAPARIN SOD 40 MG/0.4 ML SYRINGE SC SCH (11:00)
[2019-02-17] MEDS: FAMOTIDINE (10MG/ML) 2ML VL IV SCH (11:00)
--- NOTE | 2019-02-17 11:55 | NUR ---
SWALLOW EVALUATED WITH FAMILY PRESENT. PATIENT ABLE TO TOLERATE MECHANICAL SOFT DIET TEXTURE WITH THIN LIQUIDS WITH NO OVERT SIGNS OR SYMPTOMS OF ASPIRATION. PATIENT HAS OWN TEETH UPPER AND LOWER. PATIENT ABLE TO FOLLOW DIRECTIONS NURSING NOTIFIED. RECOMMEND NO STRAWS.
[2019-02-17] MEDS: POTASSIUM CHL 20MEQ/100ML 100 ML IV SCH ×2 (11:58→13:10)
[2019-02-17] MEDS: FOLIC ACID 1 MG, MULTIPLE VITAMIN 10 ML, MAGNESIUM SULF SDV 50% 8 MEQ, THIAMINE INJ 100... INJ SCH ×5 (13:08)
--- NOTE | 2019-02-17 16:04 | NUR ---
Resumed care at 0700. Orders reviewed and ongoing assessments being done. Being treated for multiple problems and was extubated yesterday. Has been interacting appropriately and able to make needs known. Remains very weak and requires total care. With moist frequent cough that has tapered off since this am. Dr. Tobias rounded at 0845. Discussed condition and reviewed new orders. Has not had a BM since admission. No c/o abdominal pain. Adomen round but soft. Abdominal series done and report resulted and forward to Dr. Tobias. Did administer a fleets enema with minimal result. Per Dr. Tobias, daily PRN until BM. Speech pathologist Akilah was in to evaluate. Passed swallow evaluation and cleared to eat a soft diet and regular liquids. Swallowed medication with applesauce, uncrushed without difficulty. Lunch was soft but having difficulty with the rice and chicken, not soft enough. Changed diet to puree and was able to swallow without difficulty. Ultrasound to left arm done to R/O DVT, arm swollen and circumference is 1cm greater than original measurement (PICC line in place). No DVT reported.
[2019-02-17] MEDS ORDERED: HALOPERIDOL LACTATE 5 MG/ML INJ VIAL IM PRN (17:15)
[2019-02-17] MEDS: FUROSEMIDE 20 MG/2 ML VIAL IV SCH (17:56)
[2019-02-17] MEDS: NOREPINEPHRINE 8 MG/250ML KIT 250 ML IV SCH (18:26)
--- NOTE | 2019-02-17 19:06 | NUR ---
Remains alert and interacting appropriately. Has expressed that he wants to leave the hospital. Reinforced that he is not ready to be discharged and that he is so weak that he can not get himself out of bed, let alone walk (has cast to right leg). Rachel is at bedside and emotional support is being given.
--- NOTE | 2019-02-17 19:35 | NUR ---
open note received report from day rn, assumed care of male pt. pt is alert watching tv. pt is on 4L nc. pt has persistent non productive cough. suction is on and at bedside. pt connected to icu monitors. pt vs wnl. pt states no pain at this time. no ss of distress noted. pt R arm is in a cast. pt R foot and calf is in a cast. pt has L upper arm pic line. pt has Optifoam on r elbow, right above the cast. pt has vivas hanging below bladder patent draining to gravity. pt educated honey processor light, instructed to use the call light if any assistance is needed, pt verbalized understanding. pillows in place to offload pressure of mario prominences for pt safety and comfort. bed is in lowest locked position, hob 30*, call light within reach. pt is in full view of rn station.will continue to care for and monitor.
[2019-02-17] MEDS: ATORVASTATIN 20 MG TAB PO SCH (20:43)
--- NOTE | 2019-02-17 21:00 | NUR ---
swallows good pt states he is thirsty, water has been provided for patient, assisted with the water, pt unable to hold cup, unable to lift either arm. pt tolerates the water good. pts swallowing is acceptable.
--- NOTE | 2019-02-17 22:30 | NUR ---
accu check pt accu check 258 pt covered with the appropriate amount of insulin according to the ordered scale for the pt.
[2019-02-18] VITALS (42 sets, daily range): BP systolic 123–176; BP diastolic 49–99
--- NOTE | 2019-02-18 01:00 | NUR ---
hygiene partial bed bath provided. repositioned for comfort and safety.
[2019-02-18] MEDS: ALBUTEROL SULF 2.5 MG/0.5ML(0.5%) NEB SOLN NEB SCH ×6 (02:01→22:20)
[2019-02-18] MEDS: IPRATROPIUM BROM 0.5 MG/2.5ML INH SOL NEB SCH ×6 (02:01→22:20)
[2019-02-18] MEDS: MORPHINE SULF INJ 2 MG/ML SYRINGE 1ML IV PRN ×5 (02:46→20:38)
[2019-02-18 04:01] LABS: Basophils # (auto) 0 uL; Basophils % (auto) 0.1 % (0.0-2.0); Eosinophils # (auto) 0 uL; Mean Corpuscular Volume 73.7 fL (80.0-100.0); Monocytes % (auto) 2.8 % (0.0-12.0)
[2019-02-18 04:03] LABS: Hematocrit 27.8 % (41.0-53.0); Hemoglobin 8.6 g/dL (13.5-17.5); Lymphocytes # (auto) 0.8 uL; Lymphocytes % (auto) 6.4 % (10.0-50.0); Mean Corpuscular Hemoglobin 22.7 pg (28.0-32.0); Mean Corpuscular Hgb Conc. 30.8 g/dL (32.0-36.0); Monocytes # (auto) 0.3 uL; Neutrophils # (auto) 11.4 uL; Neutrophils % (auto) 90.7 % (37.0-80.0); Platelet Count (auto) 300 10^3/uL (140-450); Red Blood Cells 3.78 10^6/uL (4.5-5.90); Red Cell Distribution Width 18.9 % (11.8-14.3); White Blood Cell 12.5 10^3/uL (4.4-10.8)
--- NOTE | 2019-02-18 04:15 | NUR ---
bed nowak pt stated he needed to have a bowel movement. pt was placed on bed nowak. pt said he did not need to go "poop" but he needed to pee. pt has a vivas.pt was taken off bed nowak. pt was re-educated that he has a vivas. pt appeared confused and stated "i dont want to pee on myself". pt was educated on what a vivas is and how it works.will continue to care for and monitor
[2019-02-18 04:22] LABS: Albumin 2.8 g/dL (3.4-5.0); Calcium 9.2 mg/dL (8.5-10.1); Potassium 3.7 mmol/L (3.5-5.1)
[2019-02-18 04:26] LABS: BUN/Creatinine Ratio 37.9; Bilirubin, Total 0.5 mg/dL (0.2-1.0); Total Protein 7.4 g/dL (6.4-8.2)
--- NOTE | 2019-02-18 04:57 | NUR ---
suction canisters and tubbing changed skin assessed for integrity changes, non noted at this time. pt tolerates care and turns.
[2019-02-18] MEDS: CEFEPIME HYDROCHLORIDE 2 GM in SODIUM CHL 0.9% 50 ML IV SCH (06:00)
[2019-02-18] MEDS: hydrALAZINE HCL 25 MG TAB PO SCH ×3 (06:00→21:40)
[2019-02-18] MEDS: METOCLOPRAMIDE HCL 5MG/ml INJ 2ml VIAL IV SCH ×4 (06:00→23:57)
[2019-02-18] MEDS: FUROSEMIDE 20 MG/2 ML VIAL IV SCH ×2 (06:01→18:04)
[2019-02-18] MEDS: ACCU-CHEK COMFORT CURVE STRIP VI SCH ×4 (08:20→21:41)
[2019-02-18] MEDS: InsuLIN REG 1unit/0.01ml Soln (100units/ml) SC SCH ×4 (08:25→21:41)
[2019-02-18] MEDS: methylPREDNISolone SOD SUCC 40 MG/ML VL IV SCH ×2 (09:45→22:30)
[2019-02-18] MEDS: FAMOTIDINE (10MG/ML) 2ML VL IV SCH (09:47)
[2019-02-18] MEDS: FLUCONAZOLE 200MG/100ML 100 ML IV SCH ×2 (09:51→22:29)
[2019-02-18] MEDS: ENOXAPARIN SOD 40 MG/0.4 ML SYRINGE SC SCH (09:54)
[2019-02-18] MEDS: BENAZEPRIL HCL 10 MG TAB PO SCH ×2 (09:56→21:41)
[2019-02-18] MEDS: SODIUM CHLOR 0.9% PF (SALINE LOCK) 10ML VIAL/SYR IV SCH ×2 (09:57→22:29)
[2019-02-18] MEDS: ASPirin 81 mg TAB PO SCH (09:57)
[2019-02-18] MEDS: CARVEDILOL 12.5 MG TAB PO SCH ×2 (09:57→21:41)
[2019-02-18] MEDS: FLEET ENEMA(ADULT) 135 ML PR SCH (10:00)
--- NOTE | 2019-02-18 12:05 | NUR ---
Resumed care at 0700. Orders reviewed and ongoing assessments being done. Being treated for multiple problems and was extubated 02-16-19. Persistent moist cough but not expectorating any secretions. No episodes of acute respiratory distress. Has been interacting appropriately and able to make needs known. Per prior shift had become disoriented. Has remained oriented since arrival of shift. Tolerating puree diet and having to thicken liquids. Able to take am scheduled medications with some apple sauce and no need to crush them. Dr. Tobias rounded at 0805, discussed condition and plan of care. Discussed condition and reviewed new orders. Per Dr. Tobias okay to downgrade to SINDY, charge nurse Markel made aware. Tres Cruz from PT rounded on the patient approximately at 1040. Attempted to get him out of bed to chair, but not able to. To weak. Did sit on edge of bed and dangled for about 20 minutes. POM done to extremities. Restricted due to cast to right and left leg. Sensation remains intact and able to wiggle toes and fingers to affected limbs. Skin tear to right upper arm by elbow. Cleansed with saline and reapplied clean Optifoam. Sacral area also cleansed and reapplied clean Optifoam for preventive care. Rachel has been in to visit.
--- NOTE | 2019-02-18 12:33 | NUR ---
Nutrition Follow-up Notes Wt.: 132.8 kg Pt's successfully extubated 7/3 awake and oriented when rounded this am. per pt weighs around 280 lbs with no recent wt changes. per pt has hx of DM and HTn and has been edu on diet before. per pt does follow diet at home. per pt usually has good appetite. per pt is able to swallow food currently with no difficulty. per pt fair appetite and tolerating PO, pt edu on current diet. pt is currently on CCHO 60 gm cardiac pureed diet with inadequate PO of < 50% x 4 per RN doc Est. Needs ABW [id number] kcal (23-25 kcal/kgBW), 107-117 gms pro (1.0-1.1 gms/kgBW). Will continue to monitor pertinent labs and reassess nutrient need prn Labs: BUN 36 H, GLU 237 H, ALB 2.8 L. Skin: Bryant scale 12, high risk, pt's right upper posterior sacrum skin tear, open blisters per semiconductor packages tester. Pls refer to dental service chief's notes for further details re: tx plans. GI: Pt had 50 ml BM today per semiconductor packages tester. PES: Altered nutrition related lab values r/t acute/chronic medical condition aeb hyperglycemia, hypocalcemia, mod hypoalb Decreased nutrient needs r/t adiposity aeb pt`s high BMI of 36.2 kgm2 Will continue to monitor PO intake, skin status, pertinent labs and weight trend. F/u in 3-5 days. Rec.: 1.) Consider Glucerna 1 carton bid if PO continues to be low. 2) continue assistance with meals 3.) If Albumin level continues trending down, consider Prostat 1 pkt BID. 4.) Consider daily MVI with minerals and Asc acid 500 mgs BID. 4.) Refer to CDE/RD for further nutrition education and weight monitoring upon discharged. 5.) Continue current plan of care.
[2019-02-18] MEDS: FOLIC ACID 1 MG, MULTIPLE VITAMIN 10 ML, MAGNESIUM SULF SDV 50% 8 MEQ, THIAMINE INJ 100... INJ SCH ×5 (12:36)
[2019-02-18] MEDS: METOPROLOL TARTRATE 1MG/1ML-5ML VIAL IV PRN (14:38)
[2019-02-18] MEDS: NOREPINEPHRINE 8 MG/250ML KIT 250 ML IV SCH (18:26)
--- NOTE | 2019-02-18 18:28 | NUR ---
In no acute respiratory distress. Continues to interact appropriately but upset that his did not take him home. "I don't need to be here, my can take care of me". Does have history of leaving AMA. Reinforced that he is not ready for discharge and is to weak. He requires max. assistance with ADL's secondary to a cast on right leg and right arm. Stayed in room and emotional support given.
--- NOTE | 2019-02-18 18:52 | NUR ---
Offered dinner and declined. Did attempt breakfast and lunch and only had a few bites of each item.
--- NOTE | 2019-02-18 20:00 | NUR ---
OPENING NOTE: ALERT AND ORIENTED X2-3. PATIENT DISORIENTED, THOUGHT THAT IT WAS THE MORNING TIME. NSR, HR 70-80s. SBP > 160s. LS CTA, RHONCHI AND DIMINISHED TO BASES. EVEN AND UNLABORED BREATHING. SpO2> 95% ON 2 L O2 VIA NC. +COUGH. DIFFICULTY CLEARING SECRETIONS. ABD SOFT. HYPOACTIVE BS. LBM 7/3. ONLY EATS BITES AT A TIME. SAYS HE WAS HUNGRY BUT ONLY ATE 2 SPOONFULS OF APPLESAUCE. VELEZ PATENT AND INTACT, DRAINING CLEAR YELLOW URINE. CAST TO RIGHT UPPER ARM AND RIGHT LOWER LEG, +CMS. GENERALIZED EDEMA, 2+ NON PITTING. LEFT UPPER ARM PICC, SLUGGISH BUT PATENT, CDI. SEE SKIN AND WOUND FLOWSHEET FOR ASSESSMENT. REINFORCED POC. MAINTAINED PATIENT SAFETY: BED LOCKED AND IN THE LOWEST POSITION, BED ALARM ON, FREQUENT VISUAL CHECKS. WILL CONT CARE
--- NOTE | 2019-02-18 20:00 | NUR ---
REPORT RECEIVED FROM VERONIQUE KLINE
--- NOTE | 2019-02-18 20:47 | NUR ---
PAGED ASSEMBLY DETAILER MD ISH BAIN
[2019-02-18] MEDS ORDERED: CATHFLO ACTIVASE (ALTEPLASE) 2 MG VIAL IV ONE (21:00)
[2019-02-18] MEDS ORDERED: diphenhdrAMINE HCL 50 MG/1 ML VL IV PRN (21:00)
--- NOTE | 2019-02-18 21:00 | NUR ---
SPOKE TO DR. CORTEZ: MADE AWARE OF SLUGGISH PICC LINE, OK FOR CATH FLOW. MADE AWARE THAT PATIENT HAS NOT SLEPT AND REQUESTING SOMETHING TO HELP HIM, ORDERS FOR 25 MG BENADRYL QHS PRN INSOMNIA
[2019-02-18] MEDS ORDERED: diphenhdrAMINE HCL 25 MG CAP PO ONE (21:25)
--- NOTE | 2019-02-18 21:30 | NUR ---
CATH FLOW INSTILLED TO ALL THREE PORTS - LEFT TO DWELL
[2019-02-18] MEDS: diphenhdrAMINE HCL 25 MG CAP PO PRN (21:39)
[2019-02-18] MEDS: ATORVASTATIN 20 MG TAB PO SCH (21:41)
--- NOTE | 2019-02-18 21:51 | NUR ---
PATIENT'S SISTER CALLED BANKING MANAGER, PASSWORD INCORRECT - NO INFORMATION GIVEN, PATIENT ASLEEP
--- NOTE | 2019-02-18 22:15 | NUR ---
CATH FLOW EFFECTIVE ALL PORTS WITH BLOOD RETURN - WITHDREW 5 CC OF BLOOD, ATTACHED NEW PORTS AND FLUSHED EACH PORT WITH 20 ML OF NS
--- NOTE | 2019-02-18 22:36 | NUR ---
PATIENT NOW ASLEEP - EVEN AND UNLABORED BREATHING, VSS.
[2019-02-19] VITALS (12 sets, daily range): BP systolic 139–171; BP diastolic 66–98
--- NOTE | 2019-02-19 | NUR ---
PATIENT AWAKE, JUST RESTING IN BED
--- NOTE | 2019-02-19 01:36 | NUR ---
PATIENT REPORTS EYES ARE BURNING, PLACED ARTIFICIAL TEARS AND ENCOURAGED TO CLOSE THEM FOR A WHILE
[2019-02-19] MEDS: ARTIFICIAL TEARS 15ml EACHEYE PRN (01:37)
[2019-02-19] MEDS: ALBUTEROL SULF 2.5 MG/0.5ML(0.5%) NEB SOLN NEB SCH ×6 (02:00→22:16)
[2019-02-19] MEDS: IPRATROPIUM BROM 0.5 MG/2.5ML INH SOL NEB SCH ×6 (02:00→22:16)
--- NOTE | 2019-02-19 02:05 | NUR ---
[place] TX HELD PER RN REQUEST. PT IS SLEEPING, NO SOB NOTED
[2019-02-19] MEDS: MORPHINE SULF INJ 2 MG/ML SYRINGE 1ML IV PRN ×6 (03:23→21:35)
--- NOTE | 2019-02-19 03:23 | NUR ---
DEFERRING BATH - REQUESTING TO WAIT FOR HIS
--- NOTE | 2019-02-19 03:24 | NUR ---
WOUND CARE: CLEANSED WITH SOAP AND WATER. PAT DRY. COVERED WITH GENTLE OPTIFOAM.
--- NOTE | 2019-02-19 03:25 | NUR ---
PATIENT WITH NO CONTROL OF RIGHT ARM, C/O PAIN, ASKED SUNSHINE MARTIN RN TO ARM SLING
--- NOTE | 2019-02-19 03:27 | NUR ---
PICC LINE BLOOD RETURN SLUGGISH AGAIN, ECONOMIC FORECASTER WILL ATTEMPT TO REDRESS PICC LINE WHEN PATIENT WAKES UP TO SEE IF ANY IMPROVEMENT
--- NOTE | 2019-02-19 03:44 | NUR ---
NOTED TO BE ASLEEP, EVEN AND UNLABORED BREATHING
[2019-02-19 03:55] LABS: Basophils # (auto) 0 uL; Basophils % (auto) 0.4 % (0.0-2.0); Eosinophils # (auto) 0 uL; Hematocrit 27.7 % (41.0-53.0); Hemoglobin 8.5 g/dL (13.5-17.5); Lymphocytes # (auto) 0.7 uL; Lymphocytes % (auto) 6.9 % (10.0-50.0); Mean Corpuscular Hemoglobin 22.7 pg (28.0-32.0); Mean Corpuscular Hgb Conc. 30.8 g/dL (32.0-36.0); Mean Corpuscular Volume 73.7 fL (80.0-100.0); Monocytes # (auto) 0.5 uL; Monocytes % (auto) 5.4 % (0.0-12.0); Neutrophils # (auto) 8.8 uL; Neutrophils % (auto) 87.3 % (37.0-80.0); Nucleated Red Blood Cells % 0.1 %; Platelet Count (auto) 228 10^3/uL (140-450); Red Blood Cells 3.77 10^6/uL (4.5-5.90); Red Cell Distribution Width 19.4 % (11.8-14.3); White Blood Cell 10.1 10^3/uL (4.4-10.8)
[2019-02-19 04:14] LABS: Albumin 2.6 g/dL (3.4-5.0); Calcium 8.8 mg/dL (8.5-10.1); Potassium 3.7 mmol/L (3.5-5.1)
[2019-02-19 04:17] LABS: BUN/Creatinine Ratio 37.5; Bilirubin, Total 0.5 mg/dL (0.2-1.0)
--- NOTE | 2019-02-19 05:09 | NUR ---
PICC LINE DRESSING CHANGED
[2019-02-19] MEDS: hydrALAZINE HCL 25 MG TAB PO SCH ×3 (05:47→21:34)
[2019-02-19] MEDS: METOCLOPRAMIDE HCL 5MG/ml INJ 2ml VIAL IV SCH ×3 (05:47→18:31)
[2019-02-19] MEDS: FUROSEMIDE 20 MG/2 ML VIAL IV SCH ×2 (05:47→18:37)
[2019-02-19] MEDS: InsuLIN REG 1unit/0.01ml Soln (100units/ml) SC SCH ×4 (05:47→22:00)
[2019-02-19] MEDS: ACCU-CHEK COMFORT CURVE STRIP VI SCH ×4 (05:47→21:59)
--- NOTE | 2019-02-19 05:54 | NUR ---
CLOSING NOTE: PATIENT STILL COMPLAINS OF INTERMITTENT PAIN TO RIGHT UPPER ARM AND RIGHT LOWER LEG. PLACED PATIENT'S RIGHT UPPER ARM IN A SLING. REMAINS INTERMITTENTLY CONFUSED BUT PLEASANT AND COOPERATIVE
--- NOTE | 2019-02-19 06:11 | NUR ---
REPORT CALLED VERONIQUE BUSTAMANTE
--- NOTE | 2019-02-19 06:25 | NUR ---
PATIENT LEFT UNIT WITH SUNSHINE MARTIN RN, AND LEODAN SOLARES
--- NOTE | 2019-02-19 06:27 | NUR ---
INFORMED PATIENT'S , ASTER, OF RELOCATED TO ROOM 266: ALSO INFORMED THAT PATIENT'S SISTER CALLED LAST NIGHT. ANSWERED QUESTIONS ABLE.
--- NOTE | 2019-02-19 06:35 | NUR ---
PATIENT ARRIVED TO UNIT VIA BED NO S/S OF DISTRESS OR SOB, C/O PAIN TO BACK , RIGHT LOWER AND UPPER EXTREMITY : MEDICATED FOR PAIN BY EXTERMINATOR HELPER SERJIO (SEE EMAR).PATIENT ORIENTED TO UNIT, RN AND CALL LIGHT. PATIENT ALERT AND ORIENTED X3, LUNG SOUNDS COARSE/DIMINISHED THROUGHOUT ON 2L NC. VSS: POX 98%,BP 148/95,RR 18, HEART RATE 81. VELEZ CATHETER DRAINING CLEAR YELLOW URINE. PATIENT WITH CAST AND SLING TO RIGHT UPPER EXTREMITY AND CAST TO RIGHT LOWER EXTREMITY. LEFT UPPER ARM TRIPLE LUMEN PICC LINE FLUSHED AND SLUGGISH. CONTINUE TO MONITOR.
--- NOTE | 2019-02-19 08:00 | NUR ---
Opening Shift Note Assumed care of patient, Patient sitting up in bed awake and alert. Patient A&Ox3. Patient on the monitor. Patient on 2L NC. Patient coughing up thick secretions suction used at bedside to assist with clearing secretions. Patient has right arm cast and sling, right lower leg cast. Both cast clean, dry, and intact. PMSC intact bilateral arms and legs. No S/S of distress/SOB or pain. Bed locked and in the lowest position, side rails up x2, call light with in reach. Instructed on POC and to call for assist PRN. Will continue to monitor. Addendum: 02/19/19 at 1942 by Kerri Hernandes RN IV left upper arm PICC triple lumen saline locked, patent, clean, dry, and intact.
--- NOTE | 2019-02-19 08:45 | NUR ---
Patient sitting up in bed eating breakfast with assistance from Sultana BEE. Patient repositioned. Patient resting now. Will continue to monitor.
[2019-02-19] MEDS: FLEET ENEMA(ADULT) 135 ML PR SCH (10:00)
[2019-02-19] MEDS: FLUCONAZOLE 200MG/100ML 100 ML IV SCH ×2 (10:02→21:30)
[2019-02-19] MEDS: FAMOTIDINE (10MG/ML) 2ML VL IV SCH (10:02)
[2019-02-19] MEDS: methylPREDNISolone SOD SUCC 40 MG/ML VL IV SCH ×2 (10:04→21:35)
[2019-02-19] MEDS: ASPirin 81 mg TAB PO SCH (10:04)
[2019-02-19] MEDS: ENOXAPARIN SOD 40 MG/0.4 ML SYRINGE SC SCH (10:04)
[2019-02-19] MEDS: SODIUM CHLOR 0.9% PF (SALINE LOCK) 10ML VIAL/SYR IV SCH ×2 (10:06→21:36)
[2019-02-19] MEDS: CARVEDILOL 12.5 MG TAB PO SCH ×2 (10:08→21:35)
[2019-02-19] MEDS: BENAZEPRIL HCL 10 MG TAB PO SCH ×2 (10:08→21:34)
--- NOTE | 2019-02-19 10:15 | NUR ---
Medication dosages, usages, and side effects explained to patient and at bedside. Patient unable to comprehend. (Rachel) verbalized understanding. Will continue to monitor.
--- NOTE | 2019-02-19 11:00 | NUR ---
Dr. Lainez at bedside.
--- NOTE | 2019-02-19 12:00 | NUR ---
PT at bedside.
[2019-02-19] MEDS: FOLIC ACID 1 MG, MULTIPLE VITAMIN 10 ML, MAGNESIUM SULF SDV 50% 8 MEQ, THIAMINE INJ 100... INJ SCH ×5 (13:00)
--- NOTE | 2019-02-19 14:00 | NUR ---
Patient resting at this time. No S/S of pain/SOB or distress noted at this time. Will continue to monitor.
--- NOTE | 2019-02-19 16:00 | NUR ---
Patient demanding to get out of bed. Patient is confused oriented to self only. Attempted to reorient patient. Patient still upset but unable to get out of bed. Patient too weak. Will continue to monitor and reorient patient.
[2019-02-19] MEDS ORDERED: ASPI81CH43 PO (16:43)
[2019-02-19] MEDS ORDERED: NITR0.4S29 SL (16:43)
[2019-02-19] MEDS ORDERED: PRED1PAK7 PO (16:43)
[2019-02-19] MEDS ORDERED: IPR002IS NEB (16:43)
[2019-02-19] MEDS ORDERED: [UNRECOGNIZED DRUG - CODE] IV (16:43)
[2019-02-19] MEDS ORDERED: ALB5IS NEB (16:43)
[2019-02-19] MEDS ORDERED: BEN10T PO (16:43)
[2019-02-19] MEDS ORDERED: INSREGI SC (16:43)
[2019-02-19] MEDS ORDERED: ENO40SY SC (16:43)
[2019-02-19] MEDS ORDERED: CAR125T PO (16:43)
[2019-02-19] MEDS ORDERED: LACT10SO3 PO (16:43)
[2019-02-19] MEDS ORDERED: ATOR20TA50 PO (16:43)
--- NOTE | 2019-02-19 17:00 | NUR ---
Dr. Winslow at bedside.
--- NOTE | 2019-02-19 18:30 | NUR ---
End of shift note. Patient sitting up in bed awake and alert. Patient A&Ox2. Patient on the monitor. Patient on 2L NC. Patient has right arm cast and sling, right lower leg cast. Both cast clean, dry, and intact. PMSC intact bilateral arms and legs. No S/S of distress/SOB or pain. Bed locked and in the lowest position, side rails up x2, call light with in reach. Lopez to gravity. IV left upper arm PICC triple lumen running banana bag at 126ml/hr, patent, clean, dry, and intact. Report to be given to customer equipment engineer RN. Will continue to monitor.
[2019-02-19] MEDS: diphenhdrAMINE HCL 25 MG CAP PO PRN (21:30)
[2019-02-19] MEDS: ATORVASTATIN 20 MG TAB PO SCH (21:30)
[2019-02-20] VITALS: BP 149/85
[2019-02-20] MEDS: METOCLOPRAMIDE HCL 5MG/ml INJ 2ml VIAL IV SCH ×4 (01:13→17:58)
[2019-02-20] MEDS: MORPHINE SULF INJ 2 MG/ML SYRINGE 1ML IV PRN ×5 (01:13→17:58)
[2019-02-20] MEDS: ALBUTEROL SULF 2.5 MG/0.5ML(0.5%) NEB SOLN NEB SCH ×5 (01:46→18:36)
[2019-02-20] MEDS: IPRATROPIUM BROM 0.5 MG/2.5ML INH SOL NEB SCH ×5 (01:46→18:36)
[2019-02-20 05:59] LABS: Basophils # (auto) 0 uL; Eosinophils # (auto) 0 uL; Lymphocytes # (auto) 0.7 uL; Monocytes # (auto) 0.7 uL
[2019-02-20 06:00] VITALS: BP 189/62
[2019-02-20 06:02] LABS: Basophils % (auto) 0.1 % (0.0-2.0); Hemoglobin 8.3 g/dL (13.5-17.5); Mean Corpuscular Hemoglobin 22.7 pg (28.0-32.0); Mean Corpuscular Hgb Conc. 30.9 g/dL (32.0-36.0); Mean Corpuscular Volume 73.2 fL (80.0-100.0); Monocytes % (auto) 5.6 % (0.0-12.0); Neutrophils # (auto) 10.3 uL; Neutrophils % (auto) 88.3 % (37.0-80.0); Platelet Count (auto) 296 10^3/uL (140-450); Red Blood Cells 3.68 10^6/uL (4.5-5.90); White Blood Cell 11.6 10^3/uL (4.4-10.8)
[2019-02-20 06:17] LABS: Alanine Aminotransferase 84 U/L (16-61); Albumin 2.5 g/dL (3.4-5.0); Anion Gap 9 (5-15); Aspartate Aminotransferase 58 U/L (15-37); BUN/Creatinine Ratio 37.4; Blood Urea Nitrogen 34 mg/dL (7-18); Calcium 8.4 mg/dL (8.5-10.1); Carbon Dioxide 23 mmol/L (21-32); Chloride 108 mmol/L (98-107); GFR African American 109 mL/min; GFR Non-African American 90 mL/min; Glucose 218 mg/dL (74-106); Magnesium 2.3 mg/dL (1.6-2.6); Potassium 4.1 mmol/L (3.5-5.1); Sodium 140 mmol/L (136-145)
[2019-02-20 06:20] LABS: % Iron Saturation 4.9 % (20-55); Alkaline Phosphatase 73 U/L (45-117); Bilirubin, Total 0.5 mg/dL (0.2-1.0); Total Protein 6.9 g/dL (6.4-8.2)
[2019-02-20] MEDS: FUROSEMIDE 20 MG/2 ML VIAL IV SCH ×2 (06:44→17:58)
[2019-02-20] MEDS: ACCU-CHEK COMFORT CURVE STRIP VI SCH ×3 (06:45→17:30)
[2019-02-20] MEDS: hydrALAZINE HCL 25 MG TAB PO SCH ×2 (06:45→13:50)
[2019-02-20] MEDS: InsuLIN REG 1unit/0.01ml Soln (100units/ml) SC SCH ×3 (06:48→17:50)
[2019-02-20 08:00] VITALS: BP 170/97
--- NOTE | 2019-02-20 08:00 | NUR ---
Opening Shift Note Assumed care of patient, Patient sitting up in bed awake and alert. Patient A&Ox2. Patient on the monitor. Patient on 2L NC. IV left upper arm PICC triple lumen saline locked, patent, clean, dry, and intact. Patient has right arm cast and sling, right lower leg cast. Both cast clean, dry, and intact. PMSC intact bilateral arms and legs. No S/S of distress/SOB or pain. Bed locked and in the lowest position, side rails up x2, call light with in reach. Instructed on POC and to call for assist PRN. Will continue to monitor.
--- NOTE | 2019-02-20 08:45 | NUR ---
Patient sitting up in bed eating breakfast with assistance from myself. Patient did not want to eat much only a few bits of apple sauce. Patient repositioned. Patient resting now. Will continue to monitor.
[2019-02-20] MEDS: SODIUM CHLOR 0.9% PF (SALINE LOCK) 10ML VIAL/SYR IV SCH (10:00)
[2019-02-20] MEDS: FLEET ENEMA(ADULT) 135 ML PR SCH (10:00)
[2019-02-20] MEDS: FLUCONAZOLE 200MG/100ML 100 ML IV SCH (10:46)
[2019-02-20] MEDS: ENOXAPARIN SOD 40 MG/0.4 ML SYRINGE SC SCH (10:49)
[2019-02-20] MEDS: methylPREDNISolone SOD SUCC 40 MG/ML VL IV SCH (10:49)
[2019-02-20] MEDS: FAMOTIDINE (10MG/ML) 2ML VL IV SCH (10:49)
[2019-02-20] MEDS: ASPirin 81 mg TAB PO SCH (10:49)
[2019-02-20] MEDS: CARVEDILOL 12.5 MG TAB PO SCH (10:50)
[2019-02-20] MEDS: BENAZEPRIL HCL 10 MG TAB PO SCH (10:50)
--- NOTE | 2019-02-20 11:00 | NUR ---
Medication dosages, usages, and side effects explained to patient and at bedside. Patient unable to comprehend. (Rachel) verbalized understanding. Will continue to monitor.
[2019-02-20 12:00] VITALS: BP 172/101
[2019-02-20] MEDS ORDERED: FLUC200T50 PO (12:22)
--- NOTE | 2019-02-20 12:25 | NUR ---
Dr. Winslow at bedside.
--- NOTE | 2019-02-20 12:45 | NUR ---
Patient sitting up in bed eating lunch with the assistance from Rachel. Will continue to monitor.
[2019-02-20] MEDS: FOLIC ACID 1 MG, MULTIPLE VITAMIN 10 ML, MAGNESIUM SULF SDV 50% 8 MEQ, THIAMINE INJ 100... INJ SCH ×5 (13:04)
[2019-02-20] MEDS: hydrALAZINE HCL 20 MG/ML VL IV PRN (13:05)
--- NOTE | 2019-02-20 14:00 | NUR ---
Patient resting at this time. No S/S of pain/SOB or distress noted at this time. Will continue to monitor.
--- NOTE | 2019-02-20 15:00 | NUR ---
Spoke with CM with [facility] patient has a bed at [facility] in [place]. Bed 56A. Fire Hoc to excelsior picker patient BLS between 8-9pm. Will continue to monitor.
[2019-02-20 16:00] VITALS: BP 137/78
--- NOTE | 2019-02-20 16:45 | NUR ---
Different bed for patient at [facility], 59A.
--- NOTE | 2019-02-20 17:21 | NUR ---
Patient resting at this time. No S/S of pain/SOB or distress noted at this time. Will continue to monitor.
--- NOTE | 2019-02-20 18:30 | NUR ---
End of shift note. Patient resting at this time. Patient A&Ox2. Patient on the monitor. Patient on 2L NC. Patient has right arm cast and sling, right lower leg cast. Both cast clean, dry, and intact. PMSC intact bilateral arms and legs. No S/S of distress/SOB or pain. Bed locked and in the lowest position, side rails up x2, call light with in reach. Lopez to gravity. IV left upper arm PICC triple lumen running banana bag at 126ml/hr, patent, clean, dry, and intact. Report to be given to laboratory manager RN. Will continue to monitor.
--- NOTE | 2019-02-20 20:30 | NUR ---
Pt [facility]. Attempted to call report, on hold for over 20 min with facility. Cynthia MURILLO came back to phone and stated she could not find the nurse or house painter to receive report. Left basic information about pt with Cynthia MURILLO and she will give information to RN and agricultural and forestry supervisor at facility. Left name and phone number and they stated that they will give info to RN and have her call me back for report. Pt left upset that he was being transferred and was still confused. Wanted to speak to before he left. Called 's number on file and it went to voicemail. Left message to of situation that pt was upset about transfer and wanted to talk to her and that transport was at bedside. PICC line removed. Canula intact. Pt tolerated well. Bands cut off. All education and papers sent with transport. Care endorsed.
--- NOTE | 2019-02-20 21:16 | NUR ---
Spoke to , aware of transfer. Understands was upset and had told during the day of the transfer and would see him tomorrow at the facility. states pt has already forgotten. Questions answered and told her if she had more she could call anytime.
--- NOTE | 2019-02-20 23:01 | NUR ---
RN called from facility for report since they were unable to get report before transport. Spoke with Kyleigh Cedillo RN.
--- NOTE | 2019-02-21 10:49 | NUR ---
Weekend marketing communications manager-I did not receive a page regarding the social service consult for this patient.
== END 2019-02-20 20:30 | DRG 870 ==
LOC: EDBD 16:20 → EDUNIT# 16:36 → ER 16:36 → EDBD 16:36 → TELE 16:37 → ICU WEST 02-05 00:15 → DOU IN ICU 02-19 06:42
PROVIDERS: ADMIT Internal Medicine; ATTEND Internal Medicine
PROC: 5A1955Z Respiratory Ventilation, Greater than 96 Consecutive Hours (ICD-10-PCS; principal; 2019-02-04)
PROC: 0BH17EZ Insertion of Endotracheal Airway into Trachea, Via Natural or Artificial Opening (ICD-10-PCS; 2019-02-04)
PROC: 02HV33Z Insertion of Infusion Device into Superior Vena Cava, Percutaneous Approach (ICD-10-PCS; 2019-02-04)
PROC: 5A12012 Performance of Cardiac Output, Single, Manual (ICD-10-PCS; 2019-02-09)
DX: A41.9 Sepsis, unspecified organism (principal); E11.10 Type 2 diabetes mellitus with ketoacidosis without coma; I21.4 Non-ST elevation (NSTEMI) myocardial infarction; G93.41 Metabolic encephalopathy; R65.21 Severe sepsis with septic shock; J18.9 Pneumonia, unspecified organism; I46.9 Cardiac arrest, cause unspecified; J96.21 Acute and chronic respiratory failure with hypoxia; N17.0 Acute kidney failure with tubular necrosis; S42.301A Unspecified fracture of shaft of humerus, right arm, initial encounter for closed fracture; E87.1 Hypo-osmolality and hyponatremia; I13.0 Hypertensive heart and chronic kidney disease with heart failure and stage 1 through stage 4 chronic kidney disease, or unspecified chronic kidney disease; F11.20 Opioid dependence, uncomplicated; F13.20 Sedative, hypnotic or anxiolytic dependence, uncomplicated; G72.81 Critical illness myopathy; Z99.11 Dependence on respirator [ventilator] status; R55 Syncope and collapse; I11.0 Hypertensive heart disease with heart failure; I50.9 Heart failure, unspecified; M54.2 Cervicalgia; D64.9 Anemia, unspecified; E11.22 Type 2 diabetes mellitus with diabetic chronic kidney disease; N18.9 Chronic kidney disease, unspecified; W06.XXXA Fall from bed, initial encounter; S82.891A Other fracture of right lower leg, initial encounter for closed fracture; G89.29 Other chronic pain; E66.01 Morbid (severe) obesity due to excess calories; F15.10 Other stimulant abuse, uncomplicated; F10.10 Alcohol abuse, uncomplicated; I25.2 Old myocardial infarction; Z80.3 Family history of malignant neoplasm of breast; Z79.84 Long term (current) use of oral hypoglycemic drugs; Z79.899 Other long term (current) drug therapy; Z80.42 Family history of malignant neoplasm of prostate; Z82.49 Family history of ischemic heart disease and other diseases of the circulatory system; Z98.1 Arthrodesis status; Y93.89 Activity, other specified; Y92.89 Other specified places as the place of occurrence of the external cause; Y99.8 Other external cause status
CPT/HCPCS: 31500; 36415; 36569; 36600; 70450; 71045; 71250; 72125; 74022; 80048; 80053; 80202; 80307; 80320; 80329; 81001; 82010; 82140; 82550; 82570; 82805; 82962; 83540; 83550; 83605; 83735; 83880; 83930; 84100; 84156; 84300; 84484; 84550; 85025; 85379; 85610; 85730; 87040; 87070; 87077; 87081; 87086; 87186; 87205; 92610; 92950; 93005; 93306; 93971; 94002; 94003; 94640; 94761; 95819; 96361; 96365; 96366; 96368; 96375; 99291; A4618; C9113; G0378; J0330; J0696; J1450; J1815; J2250; J2704; J3480; J3490; J7060; Q9956

== ENCOUNTER 2019-07-31 14:10 | Emergency (ER) | payer OTHER ==
[~2019-07-31] VITALS: Ht 188 cm; Wt 117.9 kg
[~2019-07-31 14:10] MED LIST changes: +ALB5IS NEB; +ASPI81CH43 PO; +ATOR20TA50 PO; +BEN10T PO; +CAR125T PO; +DULO60CA PO; +ENO40SY SC; +FER325T PO; +FLUC200T50 PO; +FLUT0.05 NAS; +GABA300C10 PO; -GLIP-115 PO; +HYDR10TA26 PO; -HYDR25TA4 PO; -HYDR8TAB46 PO; +INSREGI SC; +IPR002IS NEB; +LACT10SO3 PO; -LISI40TA PO; +METH750T3 PO; -METO-159 PO; -NIFE90TA30 PO; +NITR0.4S29 SL; -OXY20CRT PO; +PANT40TA2 PO; +PRED1PAK7 PO; +[UNRECOGNIZED DRUG - CODE] IV
[2019-07-31 14:56] LABS: Basophils # (auto) 0.1 uL; Lymphocytes # (auto) 1.9 uL; Mean Corpuscular Volume 77.5 fL (80.0-100.0); Monocytes # (auto) 0.9 uL; Monocytes % (auto) 12.7 % (0.0-12.0); Neutrophils # (auto) 4.2 uL; Nucleated Red Blood Cells % 0.1 %; White Blood Cell 7.3 10^3/uL (4.4-10.8)
[2019-07-31 14:58] LABS: Eosinophils # (auto) 0.1 uL; Hematocrit 40.5 % (41.0-53.0); Hemoglobin 13.3 g/dL (13.5-17.5); Lymphocytes % (auto) 26.6 % (10.0-50.0); Mean Corpuscular Hemoglobin 25.4 pg (28.0-32.0); Mean Corpuscular Hgb Conc. 32.8 g/dL (32.0-36.0); Neutrophils % (auto) 57.7 % (37.0-80.0); Platelet Count (auto) 360 10^3/uL (140-450); Red Blood Cells 5.23 10^6/uL (4.5-5.90); Red Cell Distribution Width 17.1 % (11.8-14.3)
[2019-07-31 15:14] LABS: INR 1.08 (0.9-1.15); Partial Thromboplastin Time 26.9 sec (23.64-32.05)
[2019-07-31 15:16] LABS: Alanine Aminotransferase 78 U/L (16-61); Albumin 3.5 g/dL (3.4-5.0); Anion Gap 10 (5-15); Aspartate Aminotransferase 116 U/L (15-37); BUN/Creatinine Ratio 11.7; Blood Urea Nitrogen 12 mg/dL (7-18); Calcium 9.1 mg/dL (8.5-10.1); Carbon Dioxide 24 mmol/L (21-32); Chloride 104 mmol/L (98-107); GFR African American 94 mL/min; GFR Non-African American 78 mL/min; Glucose 226 mg/dL (74-106); Potassium 3.1 mmol/L (3.5-5.1); Sodium 138 mmol/L (136-145)
[2019-07-31 15:21] LABS: Alkaline Phosphatase 117 U/L (45-117); Bilirubin, Total 0.7 mg/dL (0.2-1.0); Total Protein 8.9 g/dL (6.4-8.2)
[2019-07-31] MEDS ORDERED: DexAMETHasone SOD PHOS 4 MG/1ML SDV INJ IV ONE (15:30)
[2019-07-31] MEDS ORDERED: INSULIN LISPRO (HUMAN) 100 UNITS/ML ML SC ONE (15:30)
[2019-07-31] MEDS ORDERED: POTASSIUM EFFERVESENT TAB 25 MEQ PO ONE (15:30)
[2019-07-31 16:37] VITALS: BP 148/89
== END 2019-07-31 16:38 | disposition home or self-care (01) ==
LOC: ER 14:10 → MERGE 14:10 → ER 16:38
DX: G51.0 Bell's palsy (principal); I10 Essential (primary) hypertension; E11.9 Type 2 diabetes mellitus without complications; E87.6 Hypokalemia
CPT/HCPCS: 36415; 70450; 80053; 83880; 84484; 85025; 85610; 85730; 93005; 96372; 96374; 99284; J1100; J1815

== ENCOUNTER 2019-12-01 17:26 | Inpatient (IN) | payer MEDICARE, OTHER ==
[~2019-12-01] VITALS: Ht 188 cm; Wt 131.2 kg
[~2019-12-01 17:26] MED LIST changes: -BEN10T PO; +BENA10TA10 PO
[2019-12-01] MEDS ORDERED: HYDROmorphone HCL 2 MG/ML VL IV ONE (17:45)
[2019-12-01] MEDS ORDERED: ONDANSETRON HCL 4 MG/2 ML VIAL IV ONE (17:45)
[2019-12-01 18:52] LABS: Basophils # (auto) 0.1 10 ^3/uL (0-0.2); Eosinophils # (auto) 0.4 10 ^3/uL (0-0.8); Hemoglobin 12.9 g/dL (13.5-17.5)
[2019-12-01 18:54] LABS: Eosinophils % (auto) 5.3 % (0.0-7.0); Hematocrit 39.7 % (41.0-53.0); Mean Corpuscular Hemoglobin 26.1 pg (28.0-32.0); Mean Corpuscular Hgb Conc. 32.4 g/dL (32.0-36.0); Mean Corpuscular Volume 80.6 fL (80.0-100.0); Monocytes % (auto) 12.6 % (0.0-12.0); Neutrophils # (auto) 4.3 10 ^3/uL (1.6-8.6); Neutrophils % (auto) 55.1 % (37.0-80.0); Platelet Count (auto) 253 10^3/uL (140-450); Red Blood Cells 4.92 10^6/uL (4.5-5.90); Red Cell Distribution Width 19.5 % (11.8-14.3); White Blood Cell 7.9 10^3/uL (4.4-10.8)
[2019-12-01 19:04] LABS: Albumin 3.2 g/dL (3.4-5.0); Calcium 8.4 mg/dL (8.5-10.1); Potassium 3.5 mmol/L (3.5-5.1)
[2019-12-01 19:09] LABS: Bilirubin, Total 0.3 mg/dL (0.2-1.0); Total Protein 7.8 g/dL (6.4-8.2)
[2019-12-01] MEDS ORDERED: SODIUM CHLORIDE 0.9% 1,000 ML IV ONE ×3 (21:00→22:15)
[2019-12-01 22:05] LABS: Urine Bacteria NONE SEEN /hpf (None Seen); Urine Blood Negative /uL (Negative); Urine Mucus FEW (None Seen); Urine Specific Gravity 1.043 (1.001-1.035); Urine WBC 4 /hpf (0 - 3)
[2019-12-01 22:20] LABS: Alcohol, Urine < 3.0 mg/dL (0-5); Amphetamine Screen, Urine POSITIVE (NEGATIVE); Barbiturate Scree,Urine NEGATIVE (NEGATIVE); Benzodiazephine Screen, Urine NEGATIVE (NEGATIVE); Cannabinoid Screen, Urine NEGATIVE (NEGATIVE); Cocaine Screen, Urine POSITIVE (NEGATIVE); Opiate Scree,Urine NEGATIVE (NEGATIVE); Phencyclidine Screen, Urine NEGATIVE (NEGATIVE)
[2019-12-01] MEDS ORDERED: NITROGLYCERIN 0.4 MG SL TAB SL PRN (23:45)
[2019-12-01] MEDS ORDERED: DEXTROSE (50%) 50ML SYRG IV ONE (23:45)
[2019-12-01] MEDS ORDERED: MORPHINE SULF INJ 2 MG/ML SYRINGE 1ML IV PRN (23:45)
[2019-12-01] MEDS ORDERED: ONDANSETRON HCL 4 MG/2 ML VIAL IV PRN (23:45)
[2019-12-01] MEDS ORDERED: hydrALAZINE HCL 20 MG/ML VL IV PRN (23:45)
[2019-12-01] MEDS ORDERED: DOCUSATE SOD 100 MG CAP PO PRN (23:45)
[2019-12-02] VITALS (7 sets, daily range): BP systolic 133–165; BP diastolic 91–114
[2019-12-02] MEDS ORDERED: ALOG1TAB2 PO (00:26)
[2019-12-02] MEDS ORDERED: PANT40TA2 PO (00:26)
[2019-12-02] MEDS ORDERED: BUPR2MIS SL (00:26)
[2019-12-02] MEDS ORDERED: METH-532 PO (00:26)
[2019-12-02] MEDS ORDERED: METO100C PO (00:26)
[2019-12-02] MEDS ORDERED: AMLO5TAB15 PO (00:26)
[2019-12-02] MEDS ORDERED: METF-372 PO (00:26)
[2019-12-02] MEDS ORDERED: FURO40TA4 PO (00:26)
[2019-12-02] MEDS ORDERED: GABA100C9 PO (00:26)
--- NOTE | 2019-12-02 01:00 | NUR ---
PATIENT ARRIVED TO THE UNIT, HE WAS SITTING UP ON THE SIDE OF THE BED WHEN I ENTERED THE ROOM. HE IS ABLE TO PROVIDE HISTORY. POC EXPLAINED TO PATIENT, CALL LIGHT WITH IN REACH, BED ON LOWEST POSITION,WILL CONTINUE TO MONITOR.
[2019-12-02] MEDS: MORPHINE SULFATE 4 MG/ML SYR/VIAL IV PRN ×4 (01:36→14:11)
[2019-12-02] MEDS: METHOCARBAMOL 500 MG TAB PO SCH ×4 (04:30→20:49)
[2019-12-02] MEDS: GABAPENTIN 400 MG CAP PO SCH ×3 (04:30→20:50)
[2019-12-02] MEDS: SODIUM CHLORIDE 0.9% 1,000 ML IV SCH ×4 (04:50→20:54)
[2019-12-02 06:13] LABS: Basophils # (auto) 0.1 10 ^3/uL (0-0.2); Basophils % (auto) 1.1 % (0.0-2.0); Eosinophils # (auto) 0.3 10 ^3/uL (0-0.8); Eosinophils % (auto) 5.3 % (0.0-7.0); Hemoglobin 11.8 g/dL (13.5-17.5); Lymphocytes # (auto) 1.5 10 ^3/uL (0.4-5.4); Lymphocytes % (auto) 28.9 % (10.0-50.0); Mean Corpuscular Hemoglobin 26.5 pg (28.0-32.0); Mean Corpuscular Hgb Conc. 32.7 g/dL (32.0-36.0); Mean Corpuscular Volume 81.1 fL (80.0-100.0); Monocytes # (auto) 0.6 10 ^3/uL (0-1.3); Monocytes % (auto) 11.3 % (0.0-12.0); Neutrophils # (auto) 2.7 10 ^3/uL (1.6-8.6); Neutrophils % (auto) 53.4 % (37.0-80.0); Platelet Count (auto) 186 10^3/uL (140-450); Red Blood Cells 4.44 10^6/uL (4.5-5.90); Red Cell Distribution Width 19.1 % (11.8-14.3)
--- NOTE | 2019-12-02 06:23 | NUR ---
RESEARCH MANAGER ASKED IF I COULD DRAW BLOOD FORM THE PICC LINE BECAUSE PATIENT IS A HARD STICK. I TRIED ALL THREE PORTS AND IT WAS NO BLOOD RETURN. THE PIC LINE STILL FLUSHES WELL, NO SIGNS OF PHLEBOTOMY, NO PAIN ON THE SITE. LAB WAS NOTIFIED. Signed: 12/02/19 at 0625 by TORSTEN KISER RN
[2019-12-02 06:28] LABS: BUN/Creatinine Ratio 19.3; Calcium 8.2 mg/dL (8.5-10.1); Potassium 3.6 mmol/L (3.5-5.1)
[2019-12-02] MEDS ORDERED: ACCU-CHEK COMFORT CURVE STRIP VI ONE (07:00)
[2019-12-02] MEDS ORDERED: InsuLIN REG 1unit/0.01ml Soln (100units/ml) SC ONE (07:00)
--- NOTE | 2019-12-02 07:49 | NUR ---
OPENING SHIFT NOTE: PATIENT AWAKE SITTING AT SIDE OF THE BED. A/OX4 RESPIRATIONS EVEN AND UNLABORED. PATIENT UPDATED ON PLAN OF CARE, PATIENT VERBALIZED UNDERSTANDING. CALL LIGHT WITHIN REACH, WILL CONTINUE TO MONITOR.
[2019-12-02] MEDS: amLODIPine BESYLATE 5 MG TAB PO SCH ×2 (09:32→20:51)
[2019-12-02] MEDS: PANTOPRAZOLE 40 MG TAB PO SCH (09:32)
[2019-12-02] MEDS: ENOXAPARIN SOD 40 MG/0.4 ML SYRINGE SC SCH (09:32)
--- NOTE | 2019-12-02 13:50 | NUR ---
Received Social Service Referral to access pt. Pt states he is aware that he tested positive for cocaine and meth. Pt is alert and oriented times 3. Pt states he uses illegal drugs to stop the severe pain in his back. The pt states he has no alternative. Pt has had had 5 surgeries and has screws and rods in his back. Pt states he can only walk if his helps him. He is able to use a walker but cannot walk very far. Pt has no caregivers except his . Pt states he hasn't had a chance to speak with the doctor here in the hospital. He is irritated. Pt states not even morphine is helping his pain. Pt may benefit from a front wheel walker on discharge. Addendum: 12/02/19 at 1507 by CHRISTOS STEPHENS SS Offered pt substance abuse resources but pt stated he is not interested.
[2019-12-02] MEDS ORDERED: INSREGI SC (16:13)
[2019-12-02] MEDS ORDERED: HYDR25TA4 PO (16:20)
[2019-12-02] MEDS: MORPHINE SULF INJ 2 MG/ML SYRINGE 1ML IV PRN ×2 (17:28→20:48)
--- NOTE | 2019-12-02 19:00 | NUR ---
opening note PATIENT SITTING ON THE SIDE OF THE BED, UNLABORED BREATHING, POC EXPLAINED TO PATIENT. PATIENT WOULD LIKE TO TALK TO A DR, HE IS FRUSTRATED AND MORPHINE ITS JUST NOT HELPING. WHEN I SPOKE TO HIS SHE EXPLAINED HE TAKES MANY PAIN MEDICATIONS AT HOME INCLUDING DILAUDID, HE HAS BEEN ABLE TO WALK WITH A WALKER AT HOME, HE HAS A WHEEL CHAIR AND A CANE AT HOME ALSO. SHE EXPLAINED THAT HIS DOCTOR WANTS HIM TO CONTROL HIS DIABETES BEFORE HE GETS A REFERRAL TO PAIN MANAGEMENT CLINIC.
--- NOTE | 2019-12-02 19:14 | NUR ---
CARE ENDORSED TO TORSTEN PIPER.
--- NOTE | 2019-12-02 21:30 | NUR ---
MEDICATED PATIENT FOR PAIN. FLUIDS RUNNING. PATIENT SITTING UP ON THE SIDE OF THE BED.
[2019-12-02] MEDS ORDERED: METOPROLOL SUCCINATE XL 50 MG TAB PO ONE (22:00)
[2019-12-03] MEDS: MORPHINE SULF INJ 2 MG/ML SYRINGE 1ML IV PRN ×2 (02:32→10:34)
--- NOTE | 2019-12-03 02:32 | NUR ---
Patient complains of lower back pain 05/26. Medicated with Morphine 2 mg IVP.
[2019-12-03 05:30] VITALS: BP 150/103
[2019-12-03] MEDS: GABAPENTIN 400 MG CAP PO SCH ×2 (06:00→14:00)
[2019-12-03] MEDS: METHOCARBAMOL 500 MG TAB PO SCH ×2 (06:00→12:00)
[2019-12-03 08:00] VITALS: BP 161/108
--- NOTE | 2019-12-03 08:12 | NUR ---
Opening Shift Note Assumed care of patient, patient comfortably resting in bed on room air. Breath sounds even and unlabored . No S/S of distress/SOB or pain. Instructed on POC and to call for assist PRN. Bed at lowest locked position and call light within reach. Will continue to monitor for changes Q1hr and PRN.
[2019-12-03 08:42] VITALS: BP 161/108
--- NOTE | 2019-12-03 08:45 | NUR ---
Dr. Jaxson Cortes at bedside.
[2019-12-03] MEDS: SODIUM CHLORIDE 0.9% 1,000 ML IV SCH (08:57)
[2019-12-03 09:41] LABS: Basophils # (auto) 0 10 ^3/uL (0-0.2); Eosinophils # (auto) 0.2 10 ^3/uL (0-0.8); Monocytes # (auto) 0.5 10 ^3/uL (0-1.3); Nucleated Red Blood Cells % 0.1 %; White Blood Cell 4.7 10^3/uL (4.4-10.8)
[2019-12-03 09:43] LABS: Basophils % (auto) 0.8 % (0.0-2.0); Eosinophils % (auto) 3.7 % (0.0-7.0); Hematocrit 37.5 % (41.0-53.0); Hemoglobin 12.1 g/dL (13.5-17.5); Lymphocytes # (auto) 1.3 10 ^3/uL (0.4-5.4); Lymphocytes % (auto) 27.4 % (10.0-50.0); Mean Corpuscular Hemoglobin 26.1 pg (28.0-32.0); Mean Corpuscular Hgb Conc. 32.2 g/dL (32.0-36.0); Mean Corpuscular Volume 81.2 fL (80.0-100.0); Monocytes % (auto) 11.7 % (0.0-12.0); Neutrophils # (auto) 2.6 10 ^3/uL (1.6-8.6); Neutrophils % (auto) 56.4 % (37.0-80.0); Platelet Count (auto) 205 10^3/uL (140-450); Red Blood Cells 4.62 10^6/uL (4.5-5.90); Red Cell Distribution Width 19.5 % (11.8-14.3)
[2019-12-03 10:05] LABS: Albumin 2.6 g/dL (3.4-5.0); Potassium 4.1 mmol/L (3.5-5.1)
[2019-12-03 10:11] LABS: BUN/Creatinine Ratio 9.9; Bilirubin, Total 0.3 mg/dL (0.2-1.0); Total Protein 6.6 g/dL (6.4-8.2)
[2019-12-03] MEDS: PANTOPRAZOLE 40 MG TAB PO SCH (10:19)
[2019-12-03] MEDS: ENOXAPARIN SOD 40 MG/0.4 ML SYRINGE SC SCH (10:20)
[2019-12-03] MEDS: amLODIPine BESYLATE 5 MG TAB PO SCH (10:20)
--- NOTE | 2019-12-03 10:34 | NUR ---
Patient complains of lower back pain 05/26. Medicated with Morphine 2 mg IVP, per MD orders. Addendum: 12/03/19 at 1248 by Jacqui Calix RN *[id number] patient is comfortably asleep, breath sounds even and unlabored. No s/s of distress noted.
--- NOTE | 2019-12-03 12:39 | NUR ---
Dr. Yip at bedside. Patient cleared from cardiology's standpoint.
[2019-12-03 12:50] VITALS: BP 134/82
--- NOTE | 2019-12-03 13:07 | NUR ---
Patient c/o back pain, patient states "no one is doing anything about my back pain" Dr. Puri aware of patient's pain.MD will update medications.
[2019-12-03] MEDS ORDERED: MORPHINE SULF INJ 2 MG/ML SYRINGE 1ML IV ONE (13:15)
--- NOTE | 2019-12-03 13:56 | NUR ---
Pain Orders received per Dr. Jaxson Cortes Patient complains of lower back pain 05/26. Medicated with Morphine 2 mg IVP,ONCE per MD orders.
[2019-12-03 14:46] VITALS: BP 161/102
--- NOTE | 2019-12-03 15:05 | NUR ---
Attempted to call patient's Rachel [phone]. No answer.
--- NOTE | 2019-12-03 17:10 | NUR ---
Discharge instructions given as ordered. Encourage to follow up with PMD as instructed. All questions and concerns addressed. Patient verbalized understanding. Medication reconciliation form completed and copy given to patient. IV removed with catheter intact, pressure dressing applied. Telemetry unit returned to ICU. Patient taken to vehicle via wheelchair with all personal belongings, accompanied by staff. No distress noted at time of departure.
== END 2019-12-03 17:00 | disposition home or self-care (01) | DRG 552 ==
LOC: EDBD 17:26 → ER 17:26 → TELE 17:27 → TELE-WESTW 23:48
PROVIDERS: ADMIT Hospitalist; ATTEND Hospitalist
DX: M54.5 Low back pain (principal); F11.20 Opioid dependence, uncomplicated; I24.9 Acute ischemic heart disease, unspecified; S09.8XXA Other specified injuries of head, initial encounter; E66.01 Morbid (severe) obesity due to excess calories; E11.40 Type 2 diabetes mellitus with diabetic neuropathy, unspecified; I10 Essential (primary) hypertension; F32.9 Major depressive disorder, single episode, unspecified; G89.29 Other chronic pain; F43.10 Post-traumatic stress disorder, unspecified; I25.10 Atherosclerotic heart disease of native coronary artery without angina pectoris; F10.10 Alcohol abuse, uncomplicated; E66.9 Obesity, unspecified; W19.XXXA Unspecified fall, initial encounter; Z88.8 Allergy status to other drugs, medicaments and biological substances; Z79.899 Other long term (current) drug therapy; Z79.51 Long term (current) use of inhaled steroids; I25.2 Old myocardial infarction; Z68.37 Body mass index [BMI] 37.0-37.9, adult; R55 Syncope and collapse
CPT/HCPCS: 36415; 70450; 71045; 72131; 80048; 80053; 80307; 81001; 82962; 84484; 85025; 93005; 93306; 93886; G0378; J2405

== ENCOUNTER 2019-12-14 21:31 | Emergency (ER) | payer OTHER ==
[~2019-12-14] VITALS: Ht 188 cm; Wt 102.1 kg
[~2019-12-14 21:31] MED LIST changes: -ALB5IS NEB; +AMLO5TAB15 PO; -ATOR20TA50 PO; +BUPR2MIS SL; -CAR125T PO; -CITA-36 PO; -DULO60CA PO; -ENO40SY SC; -FER325T PO; -FLUC200T50 PO; -FLUT0.05 NAS; +FURO40TA4 PO; +GABA100C9 PO; -GABA300C10 PO; +HYDR25TA4 PO; -IPR002IS NEB; -LACT10SO3 PO; +METO100C PO; -NITR0.4S29 SL; -[UNRECOGNIZED DRUG - CODE] IV
[2019-12-14] MEDS ORDERED: MORPHINE SULFATE 4 MG/ML SYR/VIAL IV ONE (22:15)
[2019-12-14] MEDS ORDERED: ONDANSETRON HCL 4 MG/2 ML VIAL IV ONE (22:15)
[2019-12-14 22:28] LABS: Basophils # (auto) 0.1 10 ^3/uL (0-0.2); Eosinophils # (auto) 0.1 10 ^3/uL (0-0.8); Eosinophils % (auto) 1.4 % (0.0-7.0)
[2019-12-14 22:30] LABS: Hemoglobin 12.7 g/dL (13.5-17.5); Lymphocytes # (auto) 2.5 10 ^3/uL (0.4-5.4); Lymphocytes % (auto) 33.9 % (10.0-50.0); Mean Corpuscular Hemoglobin 25.1 pg (28.0-32.0); Mean Corpuscular Hgb Conc. 31.6 g/dL (32.0-36.0); Mean Corpuscular Volume 79.2 fL (80.0-100.0); Monocytes # (auto) 0.6 10 ^3/uL (0-1.3); Monocytes % (auto) 8.3 % (0.0-12.0); Neutrophils % (auto) 55.4 % (37.0-80.0); Nucleated Red Blood Cells % 0.2 %; Platelet Count (auto) 270 10^3/uL (140-450); Red Blood Cells 5.05 10^6/uL (4.5-5.90); Red Cell Distribution Width 18.3 % (11.8-14.3); White Blood Cell 7.3 10^3/uL (4.4-10.8)
[2019-12-14 22:43] LABS: Albumin 2.9 g/dL (3.4-5.0); Calcium 8.8 mg/dL (8.5-10.1); Magnesium 1.8 mg/dL (1.6-2.6); Potassium 3.5 mmol/L (3.5-5.1)
[2019-12-14 22:45] LABS: BUN/Creatinine Ratio 6.3
[2019-12-14 22:50] LABS: Bilirubin, Total 0.4 mg/dL (0.2-1.0); Total Protein 7.5 g/dL (6.4-8.2)
[2019-12-15 00:23] VITALS: BP 136/89
== END 2019-12-15 00:58 | disposition home or self-care (01) ==
LOC: EDBD 21:31 → ER 21:32
DX: M54.5 Low back pain (principal); I21.9 Acute myocardial infarction, unspecified; E11.9 Type 2 diabetes mellitus without complications; F41.9 Anxiety disorder, unspecified; I11.0 Hypertensive heart disease with heart failure; I50.9 Heart failure, unspecified; Z79.82 Long term (current) use of aspirin; Z79.899 Other long term (current) drug therapy
CPT/HCPCS: 36415; 71045; 71250; 72128; 74176; 80053; 83735; 83880; 84484; 85025; 93005; 96374; 96375; 99285; J2270; J2405

== ENCOUNTER → 2020-03-08 | Emergency (ER) | payer OTHER ==
[~2020-03-08] VITALS: Ht 188 cm; Wt 122.5 kg
[~2020-03-08] MED LIST changes: +KETOROLAC TROMETH 30 MG/ML 1ML VIAL IV ONE; +SODIUM CHLORIDE 0.9% 500 ML IV ONE
[2020-03-08 13:36] VITALS: BP 148/99
== END | disposition home or self-care (01) ==
LOC: ER 13:21 → EDUNIT# 13:21 → EDBD 13:21
DX: G89.29 Other chronic pain (principal); I10 Essential (primary) hypertension; E11.9 Type 2 diabetes mellitus without complications; I25.2 Old myocardial infarction
CPT/HCPCS: 93005

== ENCOUNTER 2020-03-11 23:54 | Emergency (ER) | payer OTHER ==
[~2020-03-11] VITALS: Ht 188 cm; Wt 122.5 kg
[~2020-03-11 23:54] MED LIST changes: -KETOROLAC TROMETH 30 MG/ML 1ML VIAL IV ONE; -SODIUM CHLORIDE 0.9% 500 ML IV ONE
[2020-03-12 00:19] VITALS: BP 173/120
== END 2020-03-12 01:31 | disposition left against medical advice (07) ==
LOC: ER 23:54 → EDBD 23:54 → ER 03-12 01:31
DX: R07.89 Other chest pain (principal); Z53.21 Procedure and treatment not carried out due to patient leaving prior to being seen by health care provider
CPT/HCPCS: 93005

== ENCOUNTER 2020-06-30 09:59 | Inpatient (IN) | payer OTHER ==
[~2020-06-30] VITALS: Ht 185.4 cm; Wt 129.1 kg
[2020-06-30] MEDS ORDERED: KETOROLAC TROMETH 60MG/2ML VIAL IM ONE (10:45)
[2020-06-30 11:42] LABS: Basophils # (auto) 0 10 ^3/uL (0-0.2); Eosinophils # (auto) 0 10 ^3/uL (0-0.8)
[2020-06-30 11:43] LABS: Basophils % (auto) 0.3 % (0.0-2.0); Hematocrit 43.4 % (41.0-53.0); Hemoglobin 13.8 g/dL (13.5-17.5); Lymphocytes # (auto) 1.3 10 ^3/uL (0.4-5.4); Lymphocytes % (auto) 9.7 % (10.0-50.0); Mean Corpuscular Hemoglobin 24.5 pg (28.0-32.0); Mean Corpuscular Hgb Conc. 31.9 g/dL (32.0-36.0); Mean Corpuscular Volume 76.9 fL (80.0-100.0); Monocytes # (auto) 0.8 10 ^3/uL (0-1.3); Monocytes % (auto) 5.6 % (0.0-12.0); Neutrophils # (auto) 11.6 10 ^3/uL (1.6-8.6); Neutrophils % (auto) 84.4 % (37.0-80.0); Platelet Count (auto) 265 10^3/uL (140-450); Red Blood Cells 5.64 10^6/uL (4.5-5.90); Red Cell Distribution Width 15.9 % (11.8-14.3); White Blood Cell 13.7 10^3/uL (4.4-10.8)
[2020-06-30 11:56] LABS: INR 1.14 (0.9-1.15); Partial Thromboplastin Time 26.1 sec (23.0-31.2)
[2020-06-30 12:03] LABS: Albumin 2.9 g/dL (3.4-5.0); Calcium 8.6 mg/dL (8.5-10.1); Potassium 3.4 mmol/L (3.5-5.1)
[2020-06-30 12:08] LABS: BUN/Creatinine Ratio 20.7; Bilirubin, Total 0.9 mg/dL (0.2-1.0); Total Protein 8.4 g/dL (6.4-8.2)
[2020-06-30] MEDS ORDERED: ENOXAPARIN SOD 120 MG/0.8 ML SYRINGE SC ONE (13:45)
[2020-06-30] MEDS ORDERED: POTASSIUM EFFERVESENT TAB 25 MEQ PO ONE (13:45)
[2020-06-30] MEDS ORDERED: SODIUM CHLORIDE 0.9% 1,000 ML IV ONE ×2 (17:15→17:30)
[2020-06-30] MEDS ORDERED: HYDROmorphone HCL 2 MG/ML VL IV ONE (17:15)
[2020-06-30] MEDS ORDERED: METOPROLOL TARTRATE 50 MG TAB PO ONE (17:15)
[2020-06-30] MEDS ORDERED: NITROGLYCERIN 0.4 MG SL TAB SL PRN (17:30)
[2020-06-30] MEDS ORDERED: ONDANSETRON HCL 4 MG/2 ML VIAL IV PRN (17:30)
[2020-06-30] MEDS ORDERED: MORPHINE SULF INJ 2 MG/ML SYRINGE 1ML IV PRN (17:30)
[2020-06-30] MEDS: FUROSEMIDE 40 MG TAB PO SCH (18:00)
[2020-06-30] MEDS ORDERED: DEXTROSE (50%) 50ML SYRG IV PRN (18:00)
[2020-06-30 21:05] VITALS: BP 111/80
[2020-06-30] MEDS: ACCU-CHEK COMFORT CURVE STRIP VI SCH (21:56)
[2020-06-30] MEDS: GABAPENTIN 100 MG CAP PO SCH (21:56)
[2020-06-30] MEDS: InsuLIN REG 1unit/0.01ml Soln (100units/ml) SC SCH (21:57)
[2020-06-30] MEDS: MORPHINE SULF INJ 2 MG/ML SYRINGE 1ML IV PRN (21:57)
[2020-06-30] MEDS ORDERED: METOPROLOL SUCCINATE 100 MG PO SCH (22:00)
[2020-06-30 22:17] VITALS: BP 111/95
--- NOTE | 2020-06-30 22:19 | NUR ---
PAGED FOR DIET AND MED NON-ADMIN PATIENT REQUESTING DRINK/FOOD. PATIENT HAS NO DIET ORDER. ADDITIONALLY, METOPROLOL (POM) NOT AVAILABLE. FOR THIS REASON, PATIENT NON-ADMINISTERED (SEE EMAR). CALLED DR. CORTEZ'S OFFICE AT THIS TIME. CONNECTED TO DR. FARNAZ DUONG. UPDATED MD ON PATIENT STATUS, LATEST VS, AND SCHEDULED MED NON-ADMIN. NEW ORDERS RECEIVED, READ BACK AND VERIFIED (SEE NEW ORDERS). WILL OFFER PATIENT DRINK/FOOD. WILL CONTINUE TO MONITOR.
--- NOTE | 2020-07-01 03:15 | NUR ---
PAGED FOR URINE RETENTION PATIENT UNABLE TO URINATE. PATIENT ASSISTED WITH URINAL MULTIPLE TIMES AND PATIENT CONTINUES TO BE UNABLE TO URINATE. CALLED DR. CORTEZ'S OFFICE AT THIS TIME. CONNECTED TO DR. FARNAZ DUONG. UPDATED MD ON PATIENT STATUS. NEW ORDER RECEIVED FOR VELEZ. WILL CARRY OUT. WILL CONTINUE TO MONITOR.
--- NOTE | 2020-07-01 04:15 | NUR ---
BLADDER SCAN PATIENT BLADDER SCAN 338ML. PATIENT REFUSING VELEZ. PATIENT EDUCATED ON INDICATION FOR VELEZ. PATIENT REFUSES. PATIENT EDUCATED ON BENEFITS/RISKS OF VELEZ AND RISKS/ADVERSE EFFECTS OF IMPAIRED BLADDER ELIMINATION. PATIENT VERBALIZED UNDERSTANDING AND CONTINUES TO REFUSE.
--- NOTE | 2020-07-01 04:25 | NUR ---
CONTINUED VELEZ REFUSAL / UNABLE TO OBTAIN URINE SAMPLE MADE COAT BASTER AWARE OF PATIENT STATUS, MD ORDER, AND PATIENT'S REFUSAL. COAT BASTER TALKS TO PATIENT AT THIS TIME EDUCATING PATIENT ON ISSUE. PATIENT VERBALIZED UNDERSTANDING OF RISKS AND CONTINUES TO REFUSE. PATIENT ASSISTED WITH TECHNIQUES TO ENCOURAGE BLADDER ELIMINATION WITH NO RELIEF AT THIS TIME. WILL CONTINUE TO MONITOR.
[2020-07-01] MEDS: MORPHINE SULF INJ 2 MG/ML SYRINGE 1ML IV PRN ×2 (04:39→16:39)
[2020-07-01 05:10] VITALS: BP 127/66
[2020-07-01] MEDS: GABAPENTIN 100 MG CAP PO SCH (05:32)
[2020-07-01] MEDS: FUROSEMIDE 40 MG TAB PO SCH ×2 (05:32→18:13)
[2020-07-01] MEDS: InsuLIN REG 1unit/0.01ml Soln (100units/ml) SC SCH ×4 (06:11→22:23)
[2020-07-01] MEDS: ACCU-CHEK COMFORT CURVE STRIP VI SCH ×4 (06:12→22:23)
--- NOTE | 2020-07-01 06:27 | NUR ---
NO URINE OUTPUT / REFUSING VELEZ PATIENT HAS NOT HAD ANY URINE OUTPUT. PATIENT CONTINUES TO REFUSE VELEZ. WILL CONTINUE TO MONITOR.
--- NOTE | 2020-07-01 06:28 | NUR ---
MED-REC NOT COMPLETED PATIENT DOES NOT KNOW MEDICATIONS HE TAKES AT HOME. CALLED NOK () AT THIS TIME. NOK STATES SHE IS IN THE HOSPITAL AT THIS TIME AND DOES NOT HAVE MEDICATION INFO. MIKE REDIRECTED THIS RN TO PATIENT'S DAUGHTER (PATRICIO). ATTEMPTED TO CALL PATIENT'S DAUGHTER (WITH PATIENT'S PERMISSION) FOR LIST OF MEDICATION FOR MED REC, NO ANSWER. PATIENT'S NOK () STATES SHE IS LIKELY SLEEPING AND CAN CALL OR BE CALLED AT A LATER TIME TO PROVIDE PATIENT'S LIST OF MEDICATIONS. PHONE NUMBER FOR PATIENT'S DAUGHTER - PATRICIO: . FOR THIS REASON, MED REC IS NOT REVIEWED AT THIS TIME. WILL CONTINUE TO MONITOR. WILL INFORM DAY SHIFT RN.
[2020-07-01 07:35] LABS: Basophils # (auto) 0.1 10 ^3/uL (0-0.2); Eosinophils # (auto) 0 10 ^3/uL (0-0.8); Eosinophils % (auto) 0.1 % (0.0-7.0)
[2020-07-01 07:38] LABS: Basophils % (auto) 0.6 % (0.0-2.0); Hematocrit 42.3 % (41.0-53.0); Hemoglobin 13.4 g/dL (13.5-17.5); Lymphocytes # (auto) 1.9 10 ^3/uL (0.4-5.4); Lymphocytes % (auto) 14.5 % (10.0-50.0); Mean Corpuscular Hemoglobin 24.5 pg (28.0-32.0); Mean Corpuscular Hgb Conc. 31.8 g/dL (32.0-36.0); Monocytes # (auto) 0.9 10 ^3/uL (0-1.3); Neutrophils % (auto) 77.8 % (37.0-80.0); Platelet Count (auto) 258 10^3/uL (140-450); Red Blood Cells 5.49 10^6/uL (4.5-5.90); Red Cell Distribution Width 16.3 % (11.8-14.3); White Blood Cell 12.9 10^3/uL (4.4-10.8)
[2020-07-01 07:41] LABS: Potassium 4.2 mmol/L (3.5-5.1)
--- NOTE | 2020-07-01 07:52 | NUR ---
entered room pt asleep awoke easily, has not voided, discussed vivas option pt refused, states he does not want.
[2020-07-01 07:57] LABS: Albumin 2.6 g/dL (3.4-5.0); BUN/Creatinine Ratio 22.8; Bilirubin, Total 0.8 mg/dL (0.2-1.0); Calcium 8.4 mg/dL (8.5-10.1)
--- NOTE | 2020-07-01 09:13 | NUR ---
pt voided incontinent, liban care performed, sob with activity. shakiness noted to bue, pt states that it was new. denies any needs. pt is still refusing vivas. max assist for adl's.
[2020-07-01] MEDS ORDERED: InsuLIN REG 1unit/0.01ml Soln (100units/ml) SC SCH (10:00)
[2020-07-01] MEDS ORDERED: ASPirin 81 mg TAB PO SCH (10:00)
[2020-07-01 11:45] VITALS: BP 153/80
[2020-07-01] MEDS: amLODIPine BESYLATE 5 MG TAB PO SCH ×2 (12:13→22:00)
[2020-07-01 13:00] VITALS: BP 144/82
[2020-07-01] MEDS ORDERED: ACETAMINOPHEN 500 MG TAB PO PRN (13:00)
[2020-07-01 13:29] LABS: Urine Bacteria NONE SEEN /hpf (None Seen); Urine Blood TRACE /uL (Negative); Urine Hyaline Cast MOD /lpf (0 - 2); Urine Mucus FEW (None Seen); Urine WBC 7 /hpf (0 - 3)
[2020-07-01 13:40] LABS: Amphetamine Screen, Urine NEGATIVE (NEGATIVE); Barbiturate Scree,Urine NEGATIVE (NEGATIVE); Benzodiazephine Screen, Urine NEGATIVE (NEGATIVE); Cannabinoid Screen, Urine NEGATIVE (NEGATIVE); Cocaine Screen, Urine NEGATIVE (NEGATIVE); Opiate Scree,Urine POSITIVE (NEGATIVE); Phencyclidine Screen, Urine NEGATIVE (NEGATIVE)
[2020-07-01] MEDS: levoFLOXacin 500MG 100 ML IV SCH (14:13)
[2020-07-01] MEDS: GABAPENTIN 400 MG CAP PO SCH ×2 (14:13→22:12)
[2020-07-01 17:00] VITALS: BP 141/69
--- NOTE | 2020-07-01 18:00 | NUR ---
pt a/o with periods of confusion. pt had temp, notified dr. ac tylenol given temp decreased. radiologist notified myself of pt's increased pnx. notified dr. ac, [facility] test performed et pt transferred to covid unit without incident. iv taken out rt fa cath intact. notified pt's of swathi, of transfer. offers no other needs. voided.
[2020-07-01] MEDS: RIVAROXABAN 20 MG TAB PO SCH (18:13)
[2020-07-01] MEDS ORDERED: LACTULOSE 20Gm/30ML SOLN PO ONE (18:15)
--- NOTE | 2020-07-01 19:45 | NUR ---
PATIENT TRANSFERRED TO UNIT Received report from day shift RN. patient transferred in bed. Patient is A&O X's 4 with no s/s of distress and reports some chronic back pain 5/10 at this time. Educated patient on POC/pain medication/to use call light when in need of any assistance. Patient verbalized understanding. Patient receiving 3L O2 via NC and SPO2 is 93%. Respirations are even/unlabored. Bed is in lowest/locked position with side rails up X's 2 and call light is within reach of patient. Will continue care. Tele box switched. Now # 16 ST
--- NOTE | 2020-07-01 20:00 | NUR ---
PATIENT REFUSING VELEZ INSERTION ORDERS FOR A VELEZ INSERTION. PATIENT EDUCATED ON PURPOSE OF VELEZ CATHETER. PATIENT CONTINUES TO REFUSE. MD WAS ALREADY MADE AWARE. PER DAY SHIFT RN, PATIENT DID HAVE AN EPISODE OF INCONTINENCE DURING SHIFT AND WAS VOIDING. EDUCATED PATIENT TO INFORM ME OF HE CHANGES HIS MIND. WILL CONTINUE CARE.
[2020-07-01 22:00] VITALS: BP 116/59
[2020-07-01] MEDS ORDERED: BENAZEPRIL HCL 10 MG TAB PO SCH (22:00)
[2020-07-01] MEDS ORDERED: METOPROLOL SUCCINATE XL 50 MG TAB PO SCH (22:00)
[2020-07-01] MEDS: DRONEDARONE HCL 400 MG TAB PO SCH (22:12)
[2020-07-01] MEDS: METOPROLOL SUCCINATE XL 50 MG TAB PO SCH (22:13)
--- NOTE | 2020-07-02 | NUR ---
REASSESSED VS POST BP MEDICATION BP 113/63 O2 93% ON 3L N.C HR 90.
[2020-07-02 05:00] VITALS: BP 92/50
[2020-07-02] MEDS: FUROSEMIDE 40 MG TAB PO SCH ×2 (06:00→17:36)
--- NOTE | 2020-07-02 06:20 | NUR ---
Respiratory note: POX, PT WAS AWAKE AND ALERT, NO RESP DISTRESS NOTED. HR 88, RR 24, SPO2 97% ON 4L N/C. TITRATED FIO2 TO 3L.
[2020-07-02] MEDS: ACCU-CHEK COMFORT CURVE STRIP VI SCH ×4 (06:24→22:19)
[2020-07-02] MEDS: GABAPENTIN 400 MG CAP PO SCH ×3 (06:24→22:18)
[2020-07-02] MEDS: InsuLIN REG 1unit/0.01ml Soln (100units/ml) SC SCH ×4 (06:24→22:19)
--- NOTE | 2020-07-02 06:29 | NUR ---
bm patient had BM and urinary incontinence. patient was cleansed well and new linen applied. Patient tolerated well.
--- NOTE | 2020-07-02 06:32 | NUR ---
ATTEMPTED TO CALL MD to inform MD that Warren will be held d/t low BP: 92/50 . MD was on another line and said they will call back. Will await call.
--- NOTE | 2020-07-02 06:48 | NUR ---
SUPERVISOR KENNEL AWARE OF HOLDING 0600 LASIX INFORMED MD VILLANUEVA OF BP 92/50 AND HOLDING 40MG LASIX THAT WAS ORDERED FOR 0600. SAID THAT WAS OKAY.
[2020-07-02 07:20] LABS: Basophils # (auto) 0 10 ^3/uL (0-0.2); Basophils % (auto) 0.3 % (0.0-2.0); Eosinophils # (auto) 0 10 ^3/uL (0-0.8); Eosinophils % (auto) 0.4 % (0.0-7.0); Hematocrit 38.6 % (41.0-53.0); Hemoglobin 12.1 g/dL (13.5-17.5); Lymphocytes # (auto) 1.1 10 ^3/uL (0.4-5.4); Lymphocytes % (auto) 12.8 % (10.0-50.0); Mean Corpuscular Hemoglobin 24.3 pg (28.0-32.0); Mean Corpuscular Hgb Conc. 31.3 g/dL (32.0-36.0); Mean Corpuscular Volume 77.4 fL (80.0-100.0); Monocytes # (auto) 0.9 10 ^3/uL (0-1.3); Monocytes % (auto) 9.9 % (0.0-12.0); Neutrophils # (auto) 6.8 10 ^3/uL (1.6-8.6); Neutrophils % (auto) 76.6 % (37.0-80.0); Platelet Count (auto) 257 10^3/uL (140-450); Red Blood Cells 4.99 10^6/uL (4.5-5.90); Red Cell Distribution Width 16.3 % (11.8-14.3); White Blood Cell 8.9 10^3/uL (4.4-10.8)
[2020-07-02 07:46] LABS: Potassium 3.7 mmol/L (3.5-5.1)
[2020-07-02 07:55] LABS: Albumin 2.3 g/dL (3.4-5.0); BUN/Creatinine Ratio 24.1; Bilirubin, Total 0.9 mg/dL (0.2-1.0); Calcium 8.3 mg/dL (8.5-10.1); Total Protein 7.6 g/dL (6.4-8.2)
[2020-07-02 08:00] VITALS: BP 93/58
--- NOTE | 2020-07-02 08:18 | NUR ---
Received orders from Dr Hendrix. Orders received and carried out.
[2020-07-02] MEDS: HYDROcodone-ACET 5/325MG TAB PO PRN ×2 (08:54→17:46)
[2020-07-02 09:00] VITALS: BP 95/43
[2020-07-02] MEDS ORDERED: HCTZ 25 MG TAB PO SCH (10:00)
[2020-07-02] MEDS: DRONEDARONE HCL 400 MG TAB PO SCH ×2 (10:25→22:18)
[2020-07-02] MEDS: levoFLOXacin 500MG 100 ML IV SCH (10:25)
[2020-07-02] MEDS: INSULIN LANTUS (GLARGINE) 1 /0.01ml (100units/ml) SC SCH (10:48)
--- NOTE | 2020-07-02 12:52 | NUR ---
Dr Hendrix bedside with patients discussing plan of care. Orders received and carried out.
[2020-07-02 13:00] VITALS: BP 102/67
[2020-07-02] MEDS: LIDOCAINE 5% TOPICAL PATCH TOP SCH (13:28)
[2020-07-02 16:54] VITALS: BP 102/71
[2020-07-02] MEDS: RIVAROXABAN 20 MG TAB PO SCH (17:36)
--- NOTE | 2020-07-02 19:30 | NUR ---
OPENING NOTE Received report from day shift RN. Patient is A&O X's 4 with no s/s of distress and reports chronic back pain rating 7/10 at this time. Educated patient on pain medication/management and to use call light when in need of any assistance. Patient verbalized understanding. Repositioned patient at this time for comfort. Patient is receiving 4L O2 via NC and SPO2 is 95%. Bed is in lowest/locked position with side rails up X's 2 and call light is within reach of patient. Bed alarm is on. Will continue care.
[2020-07-02 22:00] VITALS: BP 124/74
[2020-07-02] MEDS ORDERED: MORPHINE SULF 15mg ER tab PO SCH (22:00)
[2020-07-02] MEDS: METOPROLOL SUCCINATE XL 50 MG TAB PO SCH (22:17)
--- NOTE | 2020-07-03 02:00 | NUR ---
LIDOCAINE PATCH REMOVED removed at this time as it is ordered.
--- NOTE | 2020-07-03 02:38 | NUR ---
LINEN CHANGE Patient was incontinent of stool and urine. Patient was cleansed well and changed linen. Patient was repositioned. Bed is in lowest/locked position with side rails up X's 2 and call light is within reach of patient. Patient receiving 4L O2 and SPO2 95%. Patient tolerated well. Will continue care.
[2020-07-03 05:00] VITALS: BP 91/50
[2020-07-03 05:38] LABS: Basophils # (auto) 0 10 ^3/uL (0-0.2); Basophils % (auto) 0.4 % (0.0-2.0); Eosinophils # (auto) 0 10 ^3/uL (0-0.8); Eosinophils % (auto) 0.3 % (0.0-7.0); Nucleated Red Blood Cells % 0.1 %
[2020-07-03 05:40] LABS: Hemoglobin 12.8 g/dL (13.5-17.5); Lymphocytes # (auto) 1.3 10 ^3/uL (0.4-5.4); Lymphocytes % (auto) 13.6 % (10.0-50.0); Mean Corpuscular Hemoglobin 24.8 pg (28.0-32.0); Mean Corpuscular Hgb Conc. 31.2 g/dL (32.0-36.0); Mean Corpuscular Volume 79.5 fL (80.0-100.0); Monocytes # (auto) 0.9 10 ^3/uL (0-1.3); Monocytes % (auto) 9.1 % (0.0-12.0); Neutrophils # (auto) 7.2 10 ^3/uL (1.6-8.6); Neutrophils % (auto) 76.6 % (37.0-80.0); Platelet Count (auto) 283 10^3/uL (140-450); Red Blood Cells 5.16 10^6/uL (4.5-5.90); Red Cell Distribution Width 16.4 % (11.8-14.3); White Blood Cell 9.4 10^3/uL (4.4-10.8)
[2020-07-03 05:57] LABS: Calcium 8.5 mg/dL (8.5-10.1); Potassium 3.6 mmol/L (3.5-5.1)
[2020-07-03] MEDS: FUROSEMIDE 40 MG TAB PO SCH (06:00)
[2020-07-03 06:01] LABS: BUN/Creatinine Ratio 23.1
[2020-07-03] MEDS: InsuLIN REG 1unit/0.01ml Soln (100units/ml) SC SCH ×4 (06:32→22:23)
[2020-07-03] MEDS: ACCU-CHEK COMFORT CURVE STRIP VI SCH ×4 (06:32→22:25)
[2020-07-03] MEDS: GABAPENTIN 400 MG CAP PO SCH ×3 (06:32→22:24)
[2020-07-03 08:34] VITALS: BP 109/70
[2020-07-03] MEDS: SODIUM CHLORIDE 0.9% 1,000 ML IV SCH ×2 (09:05→22:59)
[2020-07-03] MEDS: levoFLOXacin 500MG 100 ML IV SCH (09:43)
[2020-07-03] MEDS: ASCORBIC ACID 500 MG TAB PO SCH ×2 (09:43→22:24)
[2020-07-03] MEDS: DRONEDARONE HCL 400 MG TAB PO SCH ×2 (09:43→22:24)
[2020-07-03] MEDS: ZINC SULFATE 220mg CAP or TAB PO SCH (09:43)
[2020-07-03] MEDS: DexAMETHasone SOD PHOS 10MG/1ML VIAL INJ IV SCH (09:43)
[2020-07-03] MEDS: LIDOCAINE 5% TOPICAL PATCH TOP SCH (09:44)
[2020-07-03] MEDS: HYDROmorphone HCL 2 MG/ML VL IV PRN ×3 (09:44→23:54)
[2020-07-03] MEDS: INSULIN LANTUS (GLARGINE) 1 /0.01ml (100units/ml) SC SCH (09:53)
[2020-07-03 13:00] VITALS: BP 94/53
[2020-07-03 16:59] VITALS: BP 102/67
[2020-07-03] MEDS: RIVAROXABAN 20 MG TAB PO SCH (17:39)
[2020-07-03 22:00] VITALS: BP 117/70
--- NOTE | 2020-07-03 22:00 | NUR ---
LIDOCAINE PATCH REMOVED REMOVED FROM BACK AT THIS TIME IT IS ORDERED.
[2020-07-03] MEDS: METOPROLOL SUCCINATE XL 50 MG TAB PO SCH (22:25)
[2020-07-03] MEDS: HYDROcodone-ACET 10/325MG TAB PO PRN (22:30)
--- NOTE | 2020-07-03 23:03 | NUR ---
PAGED MD PATIENT C/O HEARTBURN. NEW ORDERS RECEIVED. WILL FOLLOW THROUGH ORDERED.
[2020-07-03] MEDS ORDERED: PANTOPRAZOLE 40 MG TAB PO ONE (23:15)
--- NOTE | 2020-07-04 00:51 | NUR ---
PAIN REASSESSMENT patient still c/o back pain at this time rating a 7-8. Patient was repositioned again at this time. heat packs applied to lower back area.
[2020-07-04] MEDS: HYDROcodone-ACET 10/325MG TAB PO PRN ×2 (02:52→17:19)
[2020-07-04 05:45] VITALS: BP 106/64
[2020-07-04] MEDS: InsuLIN REG 1unit/0.01ml Soln (100units/ml) SC SCH ×5 (06:20→22:22)
[2020-07-04] MEDS: ACCU-CHEK COMFORT CURVE STRIP VI SCH ×3 (06:20→17:18)
[2020-07-04] MEDS: HYDROmorphone HCL 2 MG/ML VL IV PRN ×3 (06:21→20:35)
[2020-07-04] MEDS: GABAPENTIN 400 MG CAP PO SCH ×3 (06:21→21:59)
[2020-07-04 06:36] LABS: Basophils # (auto) 0 10 ^3/uL (0-0.2); Basophils % (auto) 0.2 % (0.0-2.0); Eosinophils # (auto) 0 10 ^3/uL (0-0.8); Hemoglobin 11.3 g/dL (13.5-17.5); Lymphocytes # (auto) 0.9 10 ^3/uL (0.4-5.4); Red Blood Cells 4.57 10^6/uL (4.5-5.90)
[2020-07-04 06:38] LABS: Hematocrit 35.3 % (41.0-53.0); Lymphocytes % (auto) 9.6 % (10.0-50.0); Mean Corpuscular Hemoglobin 24.6 pg (28.0-32.0); Mean Corpuscular Hgb Conc. 31.9 g/dL (32.0-36.0); Mean Corpuscular Volume 77.4 fL (80.0-100.0); Monocytes # (auto) 0.9 10 ^3/uL (0-1.3); Monocytes % (auto) 9.8 % (0.0-12.0); Neutrophils # (auto) 7.6 10 ^3/uL (1.6-8.6); Neutrophils % (auto) 80.4 % (37.0-80.0); Platelet Count (auto) 335 10^3/uL (140-450); Red Cell Distribution Width 16.6 % (11.8-14.3); White Blood Cell 9.5 10^3/uL (4.4-10.8)
[2020-07-04 06:59] LABS: Potassium 3.8 mmol/L (3.5-5.1)
[2020-07-04 07:03] LABS: BUN/Creatinine Ratio 33.5; Calcium 8.4 mg/dL (8.5-10.1)
[2020-07-04 08:32] VITALS: BP 111/64
--- NOTE | 2020-07-04 08:32 | NUR ---
MD NAPOLEON PETERSENING.
--- NOTE | 2020-07-04 09:19 | NUR ---
PATIENT TAKEN DOWN TO CT.
[2020-07-04] MEDS ORDERED: POTASSIUM CHL 20 Meq TABLET PO ONE (09:30)
[2020-07-04] MEDS: DRONEDARONE HCL 400 MG TAB PO SCH ×2 (09:58→21:58)
[2020-07-04] MEDS: oxyCODONE ER 10 MG TAB PO SCH ×2 (09:58→21:59)
[2020-07-04] MEDS: ZINC SULFATE 220mg CAP or TAB PO SCH (09:58)
[2020-07-04] MEDS: PANTOPRAZOLE 40 MG TAB PO SCH (09:59)
[2020-07-04] MEDS: ASCORBIC ACID 500 MG TAB PO SCH ×2 (09:59→22:00)
[2020-07-04] MEDS: levoFLOXacin 500MG 100 ML IV SCH (10:00)
[2020-07-04] MEDS: LIDOCAINE 5% TOPICAL PATCH TOP SCH (10:00)
[2020-07-04] MEDS: INSULIN LANTUS (GLARGINE) 1 /0.01ml (100units/ml) SC SCH (10:00)
[2020-07-04] MEDS: SODIUM BICARBONATE 50ML VIAL 50 ML in SOD CHL 0.45% 1,000 ML IV SCH ×2 (11:28→20:35)
[2020-07-04] MEDS: DexAMETHasone SOD PHOS 10MG/1ML VIAL INJ IV SCH (11:28)
[2020-07-04 12:04] LABS: Creatinine, Urine 128 mg/dL (30.0-125.0); Sodium Urine 11 mmol/L (40-220)
[2020-07-04 13:00] VITALS: BP 105/66
--- NOTE | 2020-07-04 13:03 | NUR ---
CALL FROM DR. BENDER, ORDERS RECEIVED.
--- NOTE | 2020-07-04 14:06 | NUR ---
PAIN: PATIENT C/O PAIN 10/10 IN THE BACK STATES IT IS RIPPING PAIN. MEDICATED PER EMAR, TURNED TO THE LEFT FOR COMFORT. WILL CONTINUE TO MONITOR
--- NOTE | 2020-07-04 14:20 | NUR ---
Nutrition Assessment Notes Please refer to link for full assessment notes. Est Energy needs: [id number] kcals (14-18 kcal/kgBW) Est Protein needs: 56-62 gms/day (0.8-0.9 gm/kgBW) d/t pt with elev RFTs, low GFR Will continue to monitor and reassess prn. Addendum: 07/04/20 at [address] Amended: Links added.
[2020-07-04 14:25] LABS: Albumin 2.5 g/dL (3.4-5.0); Bilirubin, Direct 0.3 mg/dL (0-0.2)
[2020-07-04 14:27] LABS: Bilirubin, Total 0.6 mg/dL (0.2-1.0); Total Protein 7.8 g/dL (6.4-8.2)
[2020-07-04 16:51] VITALS: BP 107/70
[2020-07-04] MEDS ORDERED: REMDESIVIR 200 MG in NS 210ml LOADING DOSE ADULT IV ONE (17:00)
[2020-07-04] MEDS: RIVAROXABAN 15 MG TAB PO SCH (17:28)
--- NOTE | 2020-07-04 18:51 | NUR ---
CARE ENDORSED TO NOC RN.
[2020-07-04 21:12] VITALS: BP 121/70
[2020-07-04] MEDS: BUDESONIDE (INHALATION) 180 MCG IH IN SCH (21:12)
[2020-07-04] MEDS: METOPROLOL SUCCINATE XL 50 MG TAB PO SCH (21:59)
[2020-07-04 22:00] VITALS: BP 121/70
[2020-07-05] MEDS: HYDROmorphone HCL 2 MG/ML VL IV PRN (03:21)
[2020-07-05 05:00] VITALS: BP 142/91
[2020-07-05] MEDS: HYDROcodone-ACET 10/325MG TAB PO PRN ×2 (05:02→13:09)
[2020-07-05] MEDS: GABAPENTIN 400 MG CAP PO SCH ×2 (05:02→13:04)
[2020-07-05] MEDS: BUDESONIDE (INHALATION) 180 MCG IH IN SCH (06:23)
[2020-07-05] MEDS: ACCU-CHEK COMFORT CURVE STRIP VI SCH ×3 (06:45→16:39)
[2020-07-05] MEDS: SODIUM BICARBONATE 50ML VIAL 50 ML in SOD CHL 0.45% 1,000 ML IV SCH (06:45)
[2020-07-05] MEDS: InsuLIN REG 1unit/0.01ml Soln (100units/ml) SC SCH ×6 (06:46→18:06)
[2020-07-05 07:44] LABS: Basophils # (auto) 0 10 ^3/uL (0-0.2); Basophils % (auto) 0.1 % (0.0-2.0); Eosinophils # (auto) 0 10 ^3/uL (0-0.8); Lymphocytes # (auto) 0.7 10 ^3/uL (0.4-5.4); Mean Corpuscular Hemoglobin 24.3 pg (28.0-32.0); Monocytes # (auto) 0.9 10 ^3/uL (0-1.3); Platelet Count (auto) 354 10^3/uL (140-450)
[2020-07-05 07:46] LABS: Hematocrit 34.7 % (41.0-53.0); Lymphocytes % (auto) 7.8 % (10.0-50.0); Mean Corpuscular Hgb Conc. 31.7 g/dL (32.0-36.0); Mean Corpuscular Volume 76.7 fL (80.0-100.0); Neutrophils # (auto) 7.7 10 ^3/uL (1.6-8.6); Neutrophils % (auto) 82.1 % (37.0-80.0); Red Blood Cells 4.53 10^6/uL (4.5-5.90); Red Cell Distribution Width 16.1 % (11.8-14.3); White Blood Cell 9.4 10^3/uL (4.4-10.8)
[2020-07-05 08:12] LABS: Potassium 4.2 mmol/L (3.5-5.1)
[2020-07-05 08:22] LABS: Albumin 2.5 g/dL (3.4-5.0); BUN/Creatinine Ratio 33.2; Bilirubin, Total 0.4 mg/dL (0.2-1.0); Calcium 9.1 mg/dL (8.5-10.1); Total Protein 7.3 g/dL (6.4-8.2)
[2020-07-05 09:00] VITALS: BP 124/65
[2020-07-05] MEDS: DexAMETHasone SOD PHOS 10MG/1ML VIAL INJ IV SCH (09:40)
[2020-07-05] MEDS: PANTOPRAZOLE 40 MG TAB PO SCH (09:40)
[2020-07-05] MEDS: LIDOCAINE 5% TOPICAL PATCH TOP SCH (09:40)
[2020-07-05] MEDS: ASCORBIC ACID 500 MG TAB PO SCH (09:40)
[2020-07-05] MEDS: ZINC SULFATE 220mg CAP or TAB PO SCH (09:40)
[2020-07-05] MEDS: levoFLOXacin 500MG 100 ML IV SCH (09:40)
[2020-07-05] MEDS: oxyCODONE ER 10 MG TAB PO SCH (09:41)
[2020-07-05] MEDS ORDERED: INSULIN LANTUS (GLARGINE) 1 /0.01ml (100units/ml) SC SCH (10:00)
[2020-07-05] MEDS: DRONEDARONE HCL 400 MG TAB PO SCH (10:12)
[2020-07-05 13:00] VITALS: BP 120/75
--- NOTE | 2020-07-05 14:08 | NUR ---
1350 - Contacted [facility] immigration case worker Mendy at [phone] regarding order for home oxygen and order for inpatient stay. Per Mendy, she speak with Dr Hendrix to submit order. I also requested an order for inpatient stay since patient's stay has exceeded 72 hours. Patient was admitted on 06/30/20. Mendy stated she would inform Dr Hendrix.
--- NOTE | 2020-07-05 14:38 | NUR ---
1420 07/05/20 - Faxed to [employer] at [phone], face sheet, order for home health oxygen delivery, H/P, discharge summary. [facility] makermanager pricing and processing faxed order.
--- NOTE | 2020-07-05 14:39 | NUR ---
D/C planning Regarding social service consult for home health and oxygen. MD contact [facility] and arranged order with MALATHI Brooke. Per MALATHI Brooke, [facility] health has accepted patient and SG will deliver oxygen to the front lobby at 16:00. Informed VERONIQUE Garcia.
[2020-07-05 16:57] VITALS: BP 122/57
[2020-07-05] MEDS ORDERED: REMDESIVIR 100mg in NS 230ml DAILYx4DAYS (NO VENT) IV SCH (17:00)
[2020-07-05] MEDS: RIVAROXABAN 15 MG TAB PO SCH (17:32)
--- NOTE | 2020-07-05 18:27 | NUR ---
Awaiting oxygen to be delivered prior to discharge. Dr Garay rounding on patient. Will administer medications and continue care until oxygen delivery.
--- NOTE | 2020-07-05 19:35 | NUR ---
Spoke with Dr. Puri RE: Oxygen Saturation Spoke with Dr. Puri regarding discharge order for today. Notified Dr. Puri that patient's oxygen saturation is sustaining between 90-91% on 3L/min via NC. Dr. Puri made aware that patient wants to go home tonight. Per Dr. Puri, okay to discharge patient home with home oxygen on 3L/min NC.
--- NOTE | 2020-07-05 19:50 | NUR ---
Discharge Discharge instructions given as ordered by dayshift RN, this RN reinforced discharge teaching with patient. Encourage to follow up with primary care provider as instructed. All questions and concerns addressed. Patient verbalized understanding. Medication reconciliation form completed and copy given to patient. Prescriptions given to patient. Per patient, concentrator has been delivered to his house. IV removed with catheter intact, pressure dressing applied. Telemetry box was removed and sent to ICU by dayshift RN. Patient taken to vehicle via wheelchair with all personal belongings and oxygen tank accompanied by staff, EVS, and security. No distress noted at time of departure.
== END 2020-07-05 19:50 | disposition home or self-care (01) | DRG 177 ==
LOC: ER 09:59 → EDBD 09:59 → TELE 17:52 → OBSVTOIN 17:52 → TELE-WESTW 21:05 → TELE-EAST 07-01 19:45
PROVIDERS: ADMIT Internal Medicine; ATTEND Internal Medicine
PROC: XW033E5 Introduction of Remdesivir Anti-infective into Peripheral Vein, Percutaneous Approach, New Technology Group 5 (ICD-10-PCS; principal; 2020-07-04)
DX: U07.1 COVID-19 (principal); N17.0 Acute kidney failure with tubular necrosis; J12.89 Other viral pneumonia; J96.01 Acute respiratory failure with hypoxia; E87.1 Hypo-osmolality and hyponatremia; I13.0 Hypertensive heart and chronic kidney disease with heart failure and stage 1 through stage 4 chronic kidney disease, or unspecified chronic kidney disease; E87.2 Acidosis; I50.32 Chronic diastolic (congestive) heart failure; I48.0 Paroxysmal atrial fibrillation; E66.01 Morbid (severe) obesity due to excess calories; F15.10 Other stimulant abuse, uncomplicated; F14.10 Cocaine abuse, uncomplicated; E11.22 Type 2 diabetes mellitus with diabetic chronic kidney disease; N18.9 Chronic kidney disease, unspecified; D63.1 Anemia in chronic kidney disease; E11.65 Type 2 diabetes mellitus with hyperglycemia; G89.29 Other chronic pain; Z68.35 Body mass index [BMI] 35.0-35.9, adult; Z79.01 Long term (current) use of anticoagulants; Z79.82 Long term (current) use of aspirin; Z79.899 Other long term (current) drug therapy; Z80.3 Family history of malignant neoplasm of breast; Z80.42 Family history of malignant neoplasm of prostate; Z82.49 Family history of ischemic heart disease and other diseases of the circulatory system; Z91.19 Patient's noncompliance with other medical treatment and regimen; M54.9 Dorsalgia, unspecified; Z88.5 Allergy status to narcotic agent; R77.8 Other specified abnormalities of plasma proteins
CPT/HCPCS: 36415; 71045; 71250; 72128; 72131; 76775; 80048; 80053; 80076; 80307; 81001; 82140; 82306; 82570; 82962; 83036; 83880; 83970; 84100; 84156; 84300; 84484; 85025; 85610; 85730; 93005; 93306; 94640; 96372; 96375; 96376; 97110; 97163; 97530; G0378; J1100; J1815; J1885; J1956

== ENCOUNTER 2020-07-06 14:30 | Inpatient (IN) | payer OTHER ==
[~2020-07-06] VITALS: Ht 190.5 cm; Wt 136.1 kg
[2020-07-06] MEDS ORDERED: FUROSEMIDE 40 MG/4 ML VIAL IV ONE (15:30)
[2020-07-06] MEDS ORDERED: AZITHROMYCIN 500MG/ 250ML 250 ML IV ONE ×2 (16:45→19:30)
[2020-07-06] MEDS ORDERED: ACETAMINOPHEN 325 MG TAB PO ONE (16:45)
[2020-07-06 17:52] LABS: Basophils # (auto) 0.1 10 ^3/uL (0-0.2); Eosinophils # (auto) 0 10 ^3/uL (0-0.8); Eosinophils % (auto) 0.2 % (0.0-7.0); Monocytes # (auto) 1.2 10 ^3/uL (0-1.3)
[2020-07-06 17:53] LABS: Basophils % (auto) 0.8 % (0.0-2.0); Hematocrit 39.8 % (41.0-53.0); Hemoglobin 12.5 g/dL (13.5-17.5); Lymphocytes # (auto) 1.2 10 ^3/uL (0.4-5.4); Lymphocytes % (auto) 12.3 % (10.0-50.0); Mean Corpuscular Hemoglobin 24.4 pg (28.0-32.0); Mean Corpuscular Hgb Conc. 31.5 g/dL (32.0-36.0); Mean Corpuscular Volume 77.5 fL (80.0-100.0); Monocytes % (auto) 12.8 % (0.0-12.0); Neutrophils % (auto) 73.9 % (37.0-80.0); Platelet Count (auto) 435 10^3/uL (140-450); Red Blood Cells 5.13 10^6/uL (4.5-5.90); Red Cell Distribution Width 16.6 % (11.8-14.3); White Blood Cell 9.5 10^3/uL (4.4-10.8)
[2020-07-06 18:15] LABS: Lactic Acid w/Reflex 2.4 mmol/L (0.4-2.0)
[2020-07-06 18:20] LABS: Albumin 2.5 g/dL (3.4-5.0); BUN/Creatinine Ratio 27.5; Bilirubin, Total 0.5 mg/dL (0.2-1.0); CRP High Sensitivity 0.79 mg/dL (< 0.3); Calcium 9.2 mg/dL (8.5-10.1); Total Protein 7.6 g/dL (6.4-8.2)
[2020-07-06] MEDS ORDERED: MORPHINE SULF INJ 2 MG/ML SYRINGE 1ML IV PRN (19:30)
[2020-07-06] MEDS ORDERED: NITROGLYCERIN 0.4 MG SL TAB SL PRN (19:30)
[2020-07-06] MEDS ORDERED: Methocarbamol 750 MG TAB PO PRN (19:45)
[2020-07-06] MEDS: METOPROLOL SUCCINATE XL 50 MG TAB PO SCH (22:00)
[2020-07-06] MEDS: GABAPENTIN 100 MG CAP PO SCH (22:00)
[2020-07-06] MEDS: BENAZEPRIL HCL 10 MG TAB PO SCH (22:00)
[2020-07-06] MEDS: hydrALAZINE HCL 10 MG TAB PO SCH (22:00)
[2020-07-06] MEDS: BUPRENORPHINE HCL SL SCH (22:00)
[2020-07-06] MEDS: NALOXONE HCL SL SCH (22:00)
[2020-07-06] MEDS ORDERED: ACETAMINOPHEN 500 MG TAB PO PRN (22:30)
[2020-07-06] MEDS: ENOXAPARIN SOD 40 MG/0.4 ML SYRINGE SC SCH (22:30)
[2020-07-07 04:28] VITALS: BP 145/70
[2020-07-07] MEDS ORDERED: FUROSEMIDE 40 MG TAB PO SCH (06:00)
[2020-07-07] MEDS: ALBUTEROL SULF HFA 90MCG INH 200DOSE IN SCH ×3 (06:00→22:00)
[2020-07-07] MEDS: hydrALAZINE HCL 10 MG TAB PO SCH ×3 (06:00→22:00)
[2020-07-07] MEDS: GABAPENTIN 100 MG CAP PO SCH ×3 (06:19→22:14)
--- NOTE | 2020-07-07 06:32 | NUR ---
Respiratory note: MEDICATION NOT GIVEN. PENDING COVID RESULTS HR 108, RR 22, POX 97% ON 15L NRB, BS CLEAR/DIM. NO DISTRESS NOTED.
[2020-07-07] MEDS ORDERED: PANTOPRAZOLE 40 MG TAB PO SCH (10:00)
[2020-07-07] MEDS ORDERED: cefTRIAXone SOD 1,000 MG VL IM ONE (10:00)
[2020-07-07] MEDS ORDERED: amLODIPine BESYLATE 5 MG TAB PO SCH (10:00)
[2020-07-07] MEDS ORDERED: InsuLIN REG 1unit/0.01ml Soln (100units/ml) SC SCH (10:00)
[2020-07-07] MEDS ORDERED: CHOLECALCIFEROL (VITD3) 2,000 UNIT CAP PO SCH (10:00)
[2020-07-07] MEDS ORDERED: ASPirin 81 mg TAB PO SCH (10:00)
[2020-07-07] MEDS ORDERED: predniSONE 5 MG TAB PO SCH (10:00)
[2020-07-07] MEDS ORDERED: ASCORBIC ACID 1,000 MG TAB PO SCH (10:00)
[2020-07-07] MEDS: NALOXONE HCL SL SCH ×2 (10:00→22:00)
[2020-07-07] MEDS ORDERED: ENOXAPARIN SOD 40 MG/0.4 ML SYRINGE SC SCH (10:00)
[2020-07-07] MEDS ORDERED: ZINC SULFATE 220mg CAP or TAB PO SCH (10:00)
[2020-07-07] MEDS: BUPRENORPHINE HCL SL SCH ×2 (10:00→22:00)
[2020-07-07] MEDS ORDERED: DexAMETHasone SOD PHOS 10MG/1ML VIAL INJ IV ONE (10:00)
[2020-07-07] MEDS ORDERED: HCTZ 25 MG TAB PO SCH (10:00)
[2020-07-07] MEDS ORDERED: DexAMETHasone SOD PHOS 10MG/1ML VIAL INJ IV SCH (10:00)
[2020-07-07] MEDS: BENAZEPRIL HCL 10 MG TAB PO SCH ×2 (10:02→22:00)
[2020-07-07] MEDS: ENOXAPARIN SOD 40 MG/0.4 ML SYRINGE SC SCH (10:04)
[2020-07-07] MEDS: BUDESONIDE (INHALATION) 180 MCG IH IN SCH ×2 (11:00→22:00)
[2020-07-07] MEDS ORDERED: RIVAROXABAN 20 MG TAB PO SCH (18:00)
[2020-07-07] MEDS: METOPROLOL SUCCINATE XL 50 MG TAB PO SCH (22:15)
[2020-07-08] MEDS: ALBUTEROL SULF HFA 90MCG INH 200DOSE IN SCH (05:58)
[2020-07-08] MEDS: BUDESONIDE (INHALATION) 180 MCG IH IN SCH (05:58)
[2020-07-08] MEDS: hydrALAZINE HCL 10 MG TAB PO SCH (06:00)
[2020-07-08] MEDS ORDERED: METHOCARBAMOL 500 MG TAB PO PRN (06:15)
[2020-07-08 07:32] VITALS: BP 129/87
[2020-07-08] MEDS: GABAPENTIN 100 MG CAP PO SCH (07:32)
[2020-07-08] MEDS ORDERED: THIAMINE HCL 100 MG TAB PO SCH (10:00)
== END 2020-07-08 09:55 | disposition left against medical advice (07) | DRG 189 ==
LOC: ER 14:30 → EDBD 14:30 → TELE 14:31
PROVIDERS: ADMIT Internal Medicine; ATTEND Emergency Medicine
DX: J96.01 Acute respiratory failure with hypoxia (principal); N17.9 Acute kidney failure, unspecified; M54.9 Dorsalgia, unspecified; E11.9 Type 2 diabetes mellitus without complications; E66.9 Obesity, unspecified; I48.0 Paroxysmal atrial fibrillation; Z53.29 Procedure and treatment not carried out because of patient's decision for other reasons; G89.29 Other chronic pain; I11.0 Hypertensive heart disease with heart failure; I50.9 Heart failure, unspecified; Z88.8 Allergy status to other drugs, medicaments and biological substances; Z80.3 Family history of malignant neoplasm of breast; Z80.42 Family history of malignant neoplasm of prostate; Z82.49 Family history of ischemic heart disease and other diseases of the circulatory system; Z86.19 Personal history of other infectious and parasitic diseases; Z68.35 Body mass index [BMI] 35.0-35.9, adult
CPT/HCPCS: 36415; 36600; 71045; 80053; 82728; 82805; 83605; 83880; 84484; 85025; 85379; 86141; 87040; 93005; 94640; 96365; 96366; 96372; 96375; 99291; G0378; J0696; J1100